=== PATIENT | male | born 1970 | race Caucasian/White ===

== ENCOUNTER 2017-02-09 08:31 | Inpatient (IN) | payer SELFPAY ==
[~2017-02-09] VITALS: Ht 172.7 cm; Wt 56.0 kg
[2017-02-09] VITALS (10 sets, daily range): BP systolic 114–135; BP diastolic 68–84; PULSE 73–121; RESP 15–16; TEMP 97.7; O2SAT 98–100
[~2017-02-09 08:31] MED LIST: NOVO7030P2 SQ; NOVOLOGP2 SQ; NOVOLOGSS SQ; XANA1TAB6 PO
[2017-02-09] MEDS ORDERED: NOVOLOGP2 SQ (08:44)
[2017-02-09] MEDS ORDERED: NOVO7030P2 SQ (08:44)
[2017-02-09] MEDS ORDERED: XANA1TAB2 PO (08:44)
[2017-02-09] MEDS ORDERED: SODIUM CHLORIDE 0.9% FLUSH 10 ML FLUSH IVF PRN (09:00)
--- NOTE | 2017-02-09 09:03 | PD ---
HPI Chief Complaint: Diabetic Time Seen by Provider: 08:58 Travel History International Travel<30 days: No Contact w/Intl Traveler<30days: No Traveled to known affect area: No History of Present Illness HPI This is a 47-year-old male who presents to the emergency department with a history of diabetes reporting that he thinks he is in DKA. He hasn't taken his insulin for 2 days because he was busy helping his friend move. He reports that he has diffuse abdominal pain, moderate severity, constant, associated with multiple episodes of vomiting with no fevers or chills. He also says he has a history of gastroparesis and this is causing him severe pain. PFSH Past Medical History Hx Anticoagulant Therapy: No Arthritis: No Asthma: No Autoimmune Disease: No Blood Disorders: Yes Anxiety: Yes Depression: Yes Heart Rhythm Problems: No Cancer: No Cardiovascular Problems: No High Cholesterol: No Chemotherapy: No Chest Pain: No Congestive Heart Failure: No COPD: No Cerebrovascular Accident: No Diabetes: Yes Patient Takes Glucophage: No Diminished Hearing: No Endocrine: Yes Gastrointestinal Disorders: Yes (GASTROPARESIS) GERD: No Genitourinary: No Headaches: No Hiatal Hernia: No Hypertension: No Immune Disorder: No Implanted Vascular Access Dvce: No Kidney Stones: Yes Musculoskeletal: No Neurologic: No Psychiatric: Yes Reproductive: No Respiratory: No Immunizations Current: Yes Migraines: No Radiation Therapy: No Renal Failure: No Seizures: No Sickle Cell Disease: No Sleep Apnea: No Thyroid Disease: No Ulcer: No ?: Not Past Surgical History Abdominal Surgery: No AICD: No Arteriovenous Shunt: No Cardiac Surgery: No Ear Surgery: No Endocrine Surgery: No Eye Surgery: No Genitourinary Surgery: No Gynecologic Surgery: No Hysterectomy: No Insulin Pump: No Joint Replacement: No Neurologic Surgery: No Oral Surgery: No Pacemaker: No Thoracic Surgery: No Other Surgery: No Social History Alcohol Use: Yes (SOCIALLY) Tobacco Use: Yes (1/2 PPD) Substance Use: No Allergies-Medications (Allergen,Severity, Reaction): Coded Allergies: Tramadol (Verified Allergy, Severe, INCREASES BLOOD SUGAR, 02/09/17) Aspirin (Verified Allergy, Unknown, Urinary Freq (Inc/Dec), 02/09/17) DIABETIC Reported Meds & Prescriptions Reported Meds & Active Scripts Active Reported Novolin 70-30 Inj (Insulin Human Isoph/Insulin Regular) 1,000 Unit/10 Ml Vial 15 Units SQ BID Novolog Inj (Insulin Aspart) 1,000 Unit/10 Ml Vial 0 SQ DIRECTED Sliding Scale as directed. Xanax (Alprazolam) 1 Mg Tab 1 Mg PO Q6H PRN Review of Systems Except as stated in HPI: all other systems reviewed are Neg Physical Exam Narrative GENERAL: Thin, chronically ill-appearing SKIN: Warm and dry. HEAD: Atraumatic. Normocephalic. EYES: Pupils equal and round. No injection or drainage. ENT: Dry mucous membranes. NECK: Trachea midline. CARDIOVASCULAR: Regular rate and rhythm. No murmur appreciated. RESPIRATORY: Tachypneic. Breath sounds equal bilaterally. GASTROINTESTINAL: Abdomen soft, diffusely tender to palpation with no rebound or guarding MUSCULOSKELETAL: No obvious deformities. NEUROLOGICAL: Awake and alert. No obvious cranial nerve deficits. Moving all extremities. PSYCHIATRIC: Appropriate mood and affect; insight and judgment normal. Data Data Last Documented VS Vital Signs Date Time Temp Pulse Resp B/P Pulse Ox O2 Delivery O2 Flow Rate FiO2 02/09/17 08:46 24 02/09/17 08:36 97.7 121 120/84 98 Orders Electrocardiogram (02/09/17 08:58) Complete Blood Count With Diff (02/09/17 08:58) Comprehensive Metabolic Panel (02/09/17 08:58) Beta Hydroxybutyrate (Acetone) (02/09/17 08:58) Urinalysis - C+S If Indicated (02/09/17 08:58) Blood Gas Venous (Vbg) (02/09/17 08:58) Ecg Monitoring (02/09/17 08:58) Iv Access Insert/Monitor (02/09/17 08:58) Oximetry (02/09/17 08:58) NPO (02/09/17 08:58) Sodium Chloride 0.9% Flush (Ns Flush) (02/09/17 09:00) Sodium Chlor 0.9% 1000 Ml Inj (Ns 1000 M (02/09/17 09:15) Sodium Chlor 0.9% 1000 Ml Inj (Ns 1000 M (02/09/17 09:15) Creatine Kinase (Cpk) (02/09/17 09:00) Stock Preparer / Telemetry [id number] (02/09/17 10:11) ^ Insert Iv (02/09/17 10:11) Diet Npo (02/09/17 Lunch) Sodium Chlor 0.9% 1000 Ml Inj (Ns 1000 M (02/09/17 10:11) Dext 5%-Nacl 0.9% 1000 Ml Inj (D5w-Ns 10 (02/09/17 10:11) Insulin Human Regular Inj (Novolin R Inj (02/09/17 10:15) Insulin Regular (Iv Infusion) (Novolin R (02/09/17 10:15) Potassium Chlor 40 Meq Premix (Kcl 40 Me (02/09/17 10:15) Potassium Chlor 40 Meq Premix (Kcl 40 Me (02/09/17 10:15) Potassium Chlor 20 Meq Premix (Kcl 20 Me (02/09/17 10:15) Potassium Chlor 20 Meq Premix (Kcl 20 Me (02/09/17 10:15) Potassium Chlor 20 Meq Premix (Kcl 20 Me (02/09/17 10:15) Potassium Chlor 20 Meq Premix (Kcl 20 Me (02/09/17 10:15) Potassium Chlor 20 Meq Premix (Kcl 20 Me (02/09/17 10:15) Potassium Chlor 20 Meq Premix (Kcl 20 Me (02/09/17 10:15) Sodium Bicarbonate 8.4% Inj (Sodium Bica (02/09/17 10:15) Sodium Bicarbonate 8.4% Inj (Sodium Bica (02/09/17 10:15) Sodium Phosphate Inj (Sodium Phosphate I (02/09/17 10:15) Hemoglobin (Hgb) A1c (02/09/17 10:11) Basic Metabolic Panel (Bmp) (02/09/17 15:11) Basic Metabolic Panel (Bmp) (02/09/17 21:11) Basic Metabolic Panel (Bmp) (02/10/17 03:11) Basic Metabolic Panel (Bmp) (02/10/17 09:11) Magnesium (Mg) (02/09/17 15:11) Magnesium (Mg) (02/09/17 21:11) Magnesium (Mg) (02/10/17 03:11) Magnesium (Mg) (02/10/17 09:11) Phosphorus (Po4) (02/09/17 15:11) Phosphorus (Po4) (02/09/17 21:11) Phosphorus (Po4) (02/10/17 03:11) Phosphorus (Po4) (02/10/17 09:11) Beta Hydroxybutyrate (Acetone) (02/09/17 21:11) Beta Hydroxybutyrate (Acetone) (02/10/17 09:11) Ondansetron Inj (Zofran Inj) (02/09/17 10:15) Morphine Inj (Morphine Inj) (02/09/17 10:15) Us Abdomen Liver (02/09/17 ) Tylenol (Acetaminophen) (02/09/17 10:22) Admit Order (Ed Use Only) (02/09/17 ) Labs Laboratory Tests Test 02/09/17 02/09/17 09:00 09:10 White Blood Count 10.2 TH/MM3 Red Blood Count 5.11 MIL/MM3 Hemoglobin 16.4 GM/DL Hematocrit 49.3 % Mean Corpuscular Volume 96.5 FL Mean Corpuscular Hemoglobin 32.0 PG Mean Corpuscular Hemoglobin 33.1 % Concent Red Cell Distribution Width 13.2 % Platelet Count 348 TH/MM3 Mean Platelet Volume 8.7 FL Neutrophils (%) (Auto) 81.3 % Lymphocytes (%) (Auto) 12.4 % Monocytes (%) (Auto) 5.6 % Eosinophils (%) (Auto) 0.1 % Basophils (%) (Auto) 0.6 % Neutrophils # (Auto) 8.2 TH/MM3 Lymphocytes # (Auto) 1.3 TH/MM3 Monocytes # (Auto) 0.6 TH/MM3 Eosinophils # (Auto) 0.0 TH/MM3 Basophils # (Auto) 0.1 TH/MM3 CBC Comment DIFF FINAL Differential Comment Urine Collection Type CLEAN CATCH Urine Color YELLOW Urine Turbidity CLEAR Urine pH 6.0 Urine Specific [place] 1.030 Urine Protein 100 mg/dL Urine Glucose (UA) 500 mg/dL Urine Ketones 80 OR GREATER mg/dL Urine Occult Blood LARGE Urine Nitrite NEG Urine Bilirubin NEG Urine Leukocyte Esterase NEG Urine RBC 20-24 /hpf Urine WBC 6-8 /hpf Microscopic Urinalysis Comment CULT NOT INDICATED Sodium Level 139 MEQ/L Potassium Level 4.5 MEQ/L Chloride Level 101 MEQ/L Carbon Dioxide Level 10.7 MEQ/L Anion Gap 27 MEQ/L Blood Urea Nitrogen 20 MG/DL Creatinine 1.40 MG/DL Estimat Glomerular Filtration 54 ML/MIN Rate Random Glucose 345 MG/DL Calcium Level 9.2 MG/DL Total Bilirubin 0.9 MG/DL Aspartate Amino Transf 936 U/L (AST/SGOT) Alanine Aminotransferase 1188 U/L (ALT/SGPT) Alkaline Phosphatase 417 U/L Total Creatine Kinase 229 U/L Total Protein 8.2 GM/DL Albumin 3.9 GM/DL B-Hydroxybutyrate 10.40 MMOL/L Blood Gas Puncture Site IV Blood Gas Patient Temperature 98.6 Venous Blood pH 7.26 Venous Blood Partial Pressure 28 mmHg CO2 Venous Blood Partial Pressure 28 mmHg O2 Venous Blood HCO3 12 mmol/L Venous Blood Oxygen Saturation 45 % Venous Blood Oxygen Content 10.7 Vol % Venous Blood Base Excess -13.8 mmol/L Oxygen Delivery Device ROOM AIR Blood Gas Inspired Oxygen 21 % MDM Medical Decision Making Medical Screen Exam Complete: Yes Emergency Medical Condition: Yes Interpretation(s) Afebrile, tachycardic, normotensive No leukocytosis Anion gap metabolic acidosis, renal insufficiency Hyperglycemia Transaminitis with elevated alkaline phosphatase which is new from prior labs Beta hydroxybutyrate is 10 Urinalysis: Large amount of blood Liver ultrasound: Hydronephrosis of the left kidney CT abdomen and pelvis: 6 mm obstructing stone in the left ureter Differential Diagnosis Diabetic ketoacidosis, cholecystitis, cholelithiasis, pancreatitis, nephrolithiasis, pyelonephritis Narrative Course This is a 47-year-old male who presents to the emergency department with a history of diabetes who failed to take his insulin for 2 days because he was busy helping his friend move furniture. He's developed abdominal pain and vomiting. Labs were obtained which confirmed diabetic ketoacidosis. He also has a new elevation in his transaminases of uncertain etiology. I performed a liver ultrasound which demonstrated hydronephrosis of the left kidney but had a normal right upper quadrant. CT abdomen and pelvis demonstrates a 6 mm obstructing stone in the left ureter. Patient was given an insulin bolus and started on insulin drip. He will be admitted to the intensive care unit for further management. He'll be transferred to the main hospital given his obstructing stone. Critical Care Narrative Aggregate critical care time was 45 minutes. Time to perform other separately billable procedures was not included in the critical care time. My time did not include minutes spent treating any other patients simultaneously or on activities that did not directly contribute to the patient's treatment. The services I provided to this patient were to treat and/or prevent clinically significant deterioration that could result in: disability, I provided critical care services requiring my management, as noted below: Chart data review, documentation time, medication orders and management, vital sign assessments/reviewing monitor data, ordering and reviewing lab tests, ordering and interpreting/reviewing x-rays and diagnostic studies, care of the patient and discussion of the patient with the admitting physicians. Physician Communication Physician Communication Discussed with Dr. Barba Diagnosis Primary Impression: DKA (diabetic ketoacidoses) Qualified Code: E10.10 - Diabetic ketoacidosis without coma associated with type 1 diabetes mellitus Additional Impression: Nephrolithiasis Admitting Information Admitting Physician Requests: Admit Magali Chen MD Feb 09, 2017 09:03
[2017-02-09 09:08] LABS: AUTOMATED NEUTROPHIL # 8.2 TH/MM3 (1.8-7.7); BASOPHIL # 0.1 TH/MM3 (0-0.2); BASOPHIL % 0.6 % (0.0-2.0); EOSINOPHIL % 0.1 % (0.0-4.0); HEMATOCRIT 49.3 % (39.0-51.0); HEMO FLAGS DIFF FINAL; LYMPH % 12.4 % (9.0-44.0); LYMPHOCYTE # 1.3 TH/MM3 (1.0-4.8); MEAN CELL VOLUME 96.5 FL (80.0-100.0); MEAN CORPUSCULAR HGB CONC 33.1 % (32.0-36.0); MONO % 5.6 % (0.0-8.0); NEUT % 81.3 % (16.0-70.0); PLATELET COUNT 348 TH/MM3 (150-450); RED BLOOD COUNT 5.11 MIL/MM3 (4.50-5.90); RED CELL DISTRIBUTION WIDTH 13.2 % (11.6-17.2); WHITE BLOOD COUNT 10.2 TH/MM3 (4.0-11.0)
[2017-02-09 09:09] LABS: BLOOD, URINE LARGE (NEG); GLUCOSE,URINE 500 mg/dL (NEG); NITRITE,URINE NEG (NEG)
[2017-02-09 09:14] LABS: KETONE, URINE 80 OR GREATER mg/dL (NEG)
[2017-02-09 09:15] LABS: METHOD OF COLLECTION CLEAN CATCH; URINE COLOR YELLOW (YELLW/STRAW)
[2017-02-09] MEDS ORDERED: SODIUM CHLOR 0.9% 1000 ML INJ 1,000 ML IV ONE ×2 (09:15)
[2017-02-09 09:16] LABS: BLOOD GAS VENOUS BASE EXCESS -13.8 mmol/L (-2-2); BLOOD GAS VENOUS HCO3 12 mmol/L (22-26); BLOOD GAS VENOUS O2 CONTENT 10.7 Vol % (9.0-17.0); BLOOD GAS VENOUS O2 HGB SAT 45 % (70-76); BLOOD GAS VENOUS PCO2 28 mmHg (44-48); BLOOD GAS VENOUS PO2 28 mmHg (35-40); BLOOD GAS VENOUS pH 7.26 (7.360-7.400); CRITICAL VALUE YES; FIO2 21 %; OXYGEN DEVICE ROOM AIR; TEMP CORR TO 98.6
[2017-02-09 09:16] LABS: CHLORIDE 101 MEQ/L (98-107); POTASSIUM 4.5 MEQ/L (3.5-5.1); SODIUM (NA) 139 MEQ/L (136-145)
[2017-02-09 09:17] LABS: DRAW SITE IV; STAT YES
[2017-02-09 09:17] LABS: COMMENT (UR) CULT NOT INDICATED; CULTURE IF INDICATED CULT NOT INDICATED
[2017-02-09 09:45] LABS: ANION GAP 27 MEQ/L (5-15); BICARBONATE 10.7 MEQ/L (21.0-32.0); BLOOD UREA NITROGEN 20 MG/DL (7-18)
[2017-02-09 09:48] LABS: AST (GOT) 936 U/L (15-37); GLOMERULAR FILTRATION RATE 54 ML/MIN (>89)
[2017-02-09 09:49] LABS: TOTAL BILIRUBIN ADULT 0.9 MG/DL (0.2-1.0)
[2017-02-09 09:51] LABS: ALKALINE PHOSPHATASE 417 U/L (45-117)
[2017-02-09 09:55] LABS: ALT (GPT) 1188 U/L (12-78)
[2017-02-09 09:56] LABS: CREATINE KINASE 229 U/L (39-308)
[2017-02-09] MEDS ORDERED: SODIUM PHOSPHATE INJ 15 MMOL in SODIUM CHLORIDE 0.9% INJ 100 ML IV PRN (10:15)
[2017-02-09] MEDS ORDERED: POTASSIUM CHLOR 40 MEQ PREMIX 100 ML IV PRN ×2 (10:15)
[2017-02-09] MEDS ORDERED: POTASSIUM CHLOR 20 MEQ PREMIX 100 ML IV PRN ×5 (10:15)
[2017-02-09] MEDS ORDERED: ONDANSETRON HCL 4 MG/2 ML VIAL IV PUSH ONE (10:15)
[2017-02-09] MEDS ORDERED: INSULIN HUMAN REGULAR 1,000 UNITS/10 ML VIAL IV PUSH ONE (10:15)
[2017-02-09] MEDS ORDERED: SODIUM BICARBONATE 8.4% SOLN 50 MEQ/50 ML VIAL IV PRN ×2 (10:15)
[2017-02-09] MEDS ORDERED: MORPHINE SULFATE 4 MG/ML INJ IV PUSH ONE (10:15)
[2017-02-09] MEDS ORDERED: INSULIN REGULAR (IV INFUSION) 100 UNITS in SODIUM CHLORIDE 0.9% INJ 99 ML IV SCH (10:15)
[2017-02-09] MEDS ORDERED: SODIUM CHLORIDE 0.9% FLUSH 10 ML FLUSH IV FLUSH PRN (10:30)
[2017-02-09] MEDS ORDERED: NALOXONE HCL 0.4 MG/ML AMP IV PRN (10:30)
[2017-02-09] MEDS: SODIUM CHLOR 0.9% 1000 ML INJ 1,000 ML IV SCH ×3 (11:16→16:59)
[2017-02-09] MEDS: POTASSIUM CHLOR 20 MEQ PREMIX 100 ML IV PRN (11:30)
[2017-02-09 11:39] LABS: APTT (PATIENT) 25.1 SEC (24.3-30.1); PROTHROMBIN TIME - PATIENT 10.8 SEC (9.8-11.6)
[2017-02-09 11:43] LABS: TOTAL BILIRUBIN ADULT 0.9 MG/DL (0.2-1.0)
[2017-02-09 11:58] LABS: INDIRECT BILIRUBIN 0.7 MG/DL (0.0-0.8)
--- NOTE | 2017-02-09 12:02 | RADHPO ---
EXAM DATE/TIME: 02/09/2017 11:24 [facility] COMPARISON: No previous studies available for comparison. INDICATIONS : Abnormal labs. MEDICAL HISTORY : Renal calculi. Diabetes. SURGICAL HISTORY : None. ENCOUNTER: Initial ACUITY: 1 day PAIN SCORE: 6/10 LOCATION: Bilateral upper quadrant MEASUREMENTS: LIVER: 16.4 cm length COMMON DUCT: 3 mm RIGHT KIDNEY: 11.0 x 4.7 x 5.0 cm SPLEEN: 9.5 cm length FINDINGS: LIVER: Free of focal defects. COMMON DUCT: Unremarkable. GALLBLADDER: Contains no stones, demonstrates no wall thickening or pericholecystic fluid. PANCREAS: The visualized portions are within normal limits. RIGHT KIDNEY: Measures 11 x 4 x 5 cm. LEFT KIDNEY: 1 cm stone is seen in the left kidney with mild hydronephrosis. Correlation would be of benefit to e xclude an obstructing renal stone on the left. SPLEEN: No focal lesion. I have no prior studies for a comparison. CONCLUSION: 1. There are no gallstones identified. 2. Stone identified in the left kidney with dilatation of the proximal collecting system. Roscoe Ramirez MD FACR on February 09, 2017 at 11:56 Board Certified Radiologist. This report was verified electronically.
--- NOTE | 2017-02-09 12:55 | RADHPO ---
EXAM DATE/TIME: 02/09/2017 12:21 [facility] COMPARISON: No previous studies available for comparison. INDICATIONS : Left flank pain ORAL CONTRAST: No oral contrast ingested. RADIATION DOSE: 4.80 CTDIvol (mGy) MEDICAL HISTORY : Diabetes mellitus type 2. SURGICAL HISTORY : None. ENCOUNTER: Initial ACUITY: 1 day PAIN SCALE: 3/10 LOCATION: Abdomen TECHNIQUE: Volumetric scanning of the abdomen and pelvis was performed. Using automated exposure control and ad justment of the mA and/or kV according to patient size, radiation dose was kept as low as reasonably achievable to obtain optimal diagnostic quality images. FINDINGS: The lung bases are clear. The liver is free of focal defects. Spleen and pancreas are unremarkable. There are multiple small stones in the right kidney, largest measuring 3 mm. There is a 5 - 6 mm stone proximal third of the left ureter. A second 3 mm stone remains in the kidn ey. Pelvic contents are unremarkable. There is gaseous distention of transverse colon and proximal small bowel in a nonspecific fashion. CONCLUSION: Obstructing stone proximal third of the left ureter with moderate perinephric stranding. Roscoe Ramirez MD FACR on February 09, 2017 at 12:49 Board Certified Radiologist. This report was verified electronically.
[2017-02-09] MEDS: cefTRIAXone INJ 2,000 MG in SODIUM CHLORIDE 0.9% INJ 100 ML IV SCH (13:38)
[2017-02-09] MEDS: DEXT 5%-NACL 0.9% 1000 ML INJ 1,000 ML IV SCH ×2 (14:22→17:04)
--- NOTE | 2017-02-09 15:10 | HHI.HP ---
[facility] No Primary Care Physician Admission Diagnosis diabetic ketoacidosis Diagnoses: Travel History International Travel<30 Days: No Contact w/Intl Traveler <30 Da: No Traveled to Known Affected Are: No History of Present Illness This is a 47 year-old female with past medical history of type 1 diabetes, frequent admissions for DKA, due to noncompliance with insulin who presented to the ER today complaining of high blood sugars, nausea and vomiting. 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 He has generalized abdominal pain from vomiting. He states he typically gets vomiting from his gastroparesis when he is noncompliant with his insulin. He denies any flank pain. Denies any dysuria or urgency. Denies hematuria. Denies fever or chills. No palliative or provocative factors, symptoms severe. Emergency department he was found to be in DKA and was started on IV insulin. The patient also had notable elevation of liver enzymes. Abdominal CT scan also showed an obstructing left ureteral stone 5-6 mm in the proximal third of the left ureter with associated hydronephrosis and perinephric stranding. Patient denies taking any Tylenol, supplements, states he is not sexually active currently, denies history of IV drug abuse. He does have a history of cocaine use but denies any recently. Review of Systems Constitutional: DENIES: Fever, Chills Endocrine: COMPLAINS OF: Polydipsia, Polyuria Eyes: DENIES: Photosensitivity, Double Vision Ears, nose, mouth, throat: DENIES: Throat pain, Hoarseness Respiratory: DENIES: Cough, Shortness of breath Cardiovascular: DENIES: Chest pain, Palpitations Gastrointestinal: COMPLAINS OF: Abdominal pain, Nausea, Vomiting, DENIES: Black stools, Diarrhea Genitourinary: DENIES: Hematuria, Dysuria Musculoskeletal: DENIES: Back pain, Neck pain Integumentary: DENIES: Pruritus, Rash Neurologic: DENIES: Headache, Localized weakness Psychiatric: COMPLAINS OF: Anxiety, DENIES: Confusion Past Family Social History Past Medical History Type 1 diabetes diagnosed in 1997 Frequent noncompliance with insulin regimen with multiple hospitalizations for DKA History of cocaine use Depression and anxiety Previous esophagitis Gastroparesis Nephrolithiasis Diabetic peripheral neuropathy Reported Medications Allergies Coded Allergies Type Severity Reaction Last Updated Verified Tramadol Allergy Severe INCREASES BLOOD SUGAR 02/09/17 Yes Aspirin Allergy Unknown Urinary Freq (Inc/Dec) 02/09/17 Yes Active Scripts Medications Dose Route/Sig Days Date Category Dose Instructions Novolin 70-30 Inj (Insulin Human Isoph/Insulin Regular) 1,000 Unit/10 Ml Vial 15 Units SQ BID 02/09/17 Reported Novolog Inj (Insulin Aspart) 1,000 Unit/10 Ml Vial 0 SQ DIRECTED 02/09/17 Reported Sliding Scale as directed. Xanax (Alprazolam) 1 Mg Tab 1 Mg PO Q6H PRN 02/09/17 Reported Allergies: Coded Allergies: Tramadol (Verified Allergy, Severe, INCREASES BLOOD SUGAR, 02/09/17) Aspirin (Verified Allergy, Unknown, Urinary Freq (Inc/Dec), 02/09/17) DIABETIC Family History Kidney stones Social History He smokes half pack tobacco per day denies any history of IV drug abuse, states he is not currently sexually active, denies recent cocaine use Physical Exam Vital Signs Vital Signs Date Time Temp Pulse Resp B/P Pulse Ox O2 Delivery O2 Flow Rate FiO2 02/09/17 14:23 90 15 129/81 02/09/17 13:31 80 15 127/70 100 02/09/17 12:20 84 15 131/75 100 Room Air 02/09/17 11:00 80 15 135/73 98 02/09/17 10:50 15 98 Room Air 02/09/17 08:46 24 02/09/17 08:36 97.7 121 16 120/84 98 Physical Exam GENERAL: Well-nourished, well-developed lean middle-aged male patient. SKIN: Warm and dry. Skin is weathered. HEAD: Normocephalic. EYES: No scleral icterus. No injection or drainage. Oropharynx: Dry mucous membranes. Teeth in poor repair. NECK: Supple, trachea midline. No JVD or lymphadenopathy. CARDIOVASCULAR: Regular rate and rhythm without murmurs, gallops, or rubs. RESPIRATORY: Breath sounds equal bilaterally. No accessory muscle use. GASTROINTESTINAL: Bowel sounds positive. Abdomen soft, non-tender, nondistended. EXTREMITIES: No cyanosis, or edema. NEUROLOGICAL: Awake, alert, and oriented x 3. Non-focal. Laboratory Laboratory Tests Test 02/09/17 02/09/17 02/09/17 09:00 09:10 11:15 White Blood Count 10.2 Red Blood Count 5.11 Hemoglobin 16.4 Hematocrit 49.3 Mean Corpuscular Volume 96.5 Mean Corpuscular Hemoglobin 32.0 Mean Corpuscular Hemoglobin 33.1 Concent Red Cell Distribution Width 13.2 Platelet Count 348 Mean Platelet Volume 8.7 Neutrophils (%) (Auto) 81.3 Lymphocytes (%) (Auto) 12.4 Monocytes (%) (Auto) 5.6 Eosinophils (%) (Auto) 0.1 Basophils (%) (Auto) 0.6 Neutrophils # (Auto) 8.2 Lymphocytes # (Auto) 1.3 Monocytes # (Auto) 0.6 Eosinophils # (Auto) 0.0 Basophils # (Auto) 0.1 CBC Comment DIFF FINAL Differential Comment Urine Collection Type CLEAN CATCH Urine Color YELLOW Urine Turbidity CLEAR Urine pH 6.0 Urine Specific [place] 1.030 Urine Protein 100 Urine Glucose (UA) 500 Urine Ketones 80 OR GREATER Urine Occult Blood LARGE Urine Nitrite NEG Urine Bilirubin NEG Urine Leukocyte Esterase NEG Urine RBC 20-24 Urine WBC 6-8 Microscopic Urinalysis Comment CULT NOT INDICATED Sodium Level 139 Potassium Level 4.5 Chloride Level 101 Carbon Dioxide Level 10.7 Anion Gap 27 Blood Urea Nitrogen 20 Creatinine 1.40 Estimat Glomerular Filtration 54 Rate Random Glucose 345 Calcium Level 9.2 Total Bilirubin 0.9 0.9 Aspartate Amino Transf 936 (AST/SGOT) Alanine Aminotransferase 1188 (ALT/SGPT) Alkaline Phosphatase 417 Total Creatine Kinase 229 Total Protein 8.2 Albumin 3.9 B-Hydroxybutyrate 10.40 Blood Gas Puncture Site IV Blood Gas Patient Temperature 98.6 Venous Blood pH 7.26 Venous Blood Partial Pressure 28 CO2 Venous Blood Partial Pressure 28 O2 Venous Blood HCO3 12 Venous Blood Oxygen Saturation 45 Venous Blood Oxygen Content 10.7 Venous Blood Base Excess -13.8 Oxygen Delivery Device ROOM AIR Blood Gas Inspired Oxygen 21 Prothrombin Time 10.8 Prothromb Time International 1.0 Ratio Activated Partial 25.1 Thromboplast Time Lactic Acid Level 1.6 Direct Bilirubin 0.2 Indirect Bilirubin 0.7 Acetaminophen Level LESS THAN 2.0 Result Diagram: 02/09/17 0900 02/09/17 0900 Assessment and Plan Problem List: (1) Medical non-compliance ICD Code: Z91.19 Status: Acute (2) SHARIFA (acute kidney injury) ICD Code: N17.9 Status: Acute (3) Acute hepatitis ICD Code: B17.9 Status: Acute (4) DKA (diabetic ketoacidoses) ICD Code: E13.10 Status: Resolved (5) Type 1 diabetes mellitus on insulin therapy ICD Code: E10.9 Status: Chronic (6) Gastroparesis ICD Code: K31.84 Status: Chronic (7) 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 Will admit to ICU on insulin drip and DKA protocol. Check hemoglobin A1c. Electrolyte replacement as indicated. -Transaminitis with ALC being greater than AST - liver ultrasound unremarkable, no gallstones, bilirubin elevated, coags are normal, Tylenol level normal. Patient denies using Tylenol or supplements. Denies any recent cocaine use, unprotected sexual encounters, denies history of IV drug abuse. We'll check hepatitis profile. Consult gastroenterology for opinion. -Left ureteral stone 5-6 mm which is obstructing the proximal third of the left ureter with moderate perinephric stranding. Interestingly the patient does not have any left flank pain. We'll consult urology, continue with IV fluids, pain control as needed. Rocephin 2 g IV daily prophylactically. -Acute kidney injury likely prerenal, nonoliguric. Continue with IV fluid resuscitation. Lactic acid is not elevated. Check a BMP in the morning. -Gastroparesis with acute exacerbation with nausea and vomiting. Will start him on Reglan IV. Zofran when necessary. Nothing by mouth. -Type 1 diabetes diagnosed in 1997 - takes Novolin 70/30 as an outpatient but is noncompliant. Consult chemical educator when off insulin drip. -History of cocaine use - denies recent use. Check urine drug screen. -Depression and anxiety - not currently being treated. Consider psychiatry consultation. -Previous esophagitis - start Protonix. -DVT prophylaxis with SCDs. 40 minutes of critical care time spent. Problem Qualifiers (1) DKA (diabetic ketoacidoses): Qualified Code: E10.10 - Diabetic ketoacidosis without coma associated with type 1 diabetes mellitus Heidi Barba MD Feb 09, 2017 15:10
[2017-02-09 15:31] LABS: BICARBONATE 16.3 MEQ/L (21.0-32.0); MAGNESIUM 2.3 MG/DL (1.5-2.5); POTASSIUM 4.9 MEQ/L (3.5-5.1)
[2017-02-09] MEDS: ONDANSETRON HCL 4 MG/2 ML VIAL IVP PRN (16:43)
[2017-02-09] MEDS: PANTOPRAZOLE SODIUM 40 MG VIAL IV PUSH SCH (17:03)
--- NOTE | 2017-02-09 18:43 | PD.CONS ---
HPI Service Urology Consult Requested By Reason for Consult Nephrolithiasis Primary Care Physician No Primary Care Physician Diagnosis: (1) Medical non-compliance ICD Code: Z91.19 (2) SHARIFA (acute kidney injury) ICD Code: N17.9 (3) Acute hepatitis ICD Code: B17.9 (4) DKA (diabetic ketoacidoses) ICD Code: E13.10 (5) Type 1 diabetes mellitus on insulin therapy ICD Code: E10.9 (6) Gastroparesis ICD Code: K31.84 (7) Cocaine abuse in remission ICD Code: F14.10 (8) Hydronephrosis of left kidney ICD Code: N13.30 (9) Left ureteral calculus ICD Code: N20.1 History of Present Illness 47yo male with history of DM currently admitted for DKA found to have a left midureteral stone. Patient was found to have elevated blood sugar levels and noncompliance with his insulin regimen. Upon admit, CT scan identified a left 5- 6mid ureteral stone with some hydronephrosis. At this time the patient denies any left flank pain. He reports he did experience a short episode of sharp severe left flank pain ne week ago, however this resolved and he has since had not pain. No fevers, no hematuria, no dysuria. Of note, the patient has gastroparesis from his uncontrolled DM. Review of Systems ROS Limitations: Clinical Condition Constitutional: DENIES: Fever Endocrine: DENIES: Polyuria Eyes: DENIES: Blurred vision Ears, nose, mouth, throat: DENIES: Hearing loss Respiratory: DENIES: Cough Cardiovascular: DENIES: Chest pain Gastrointestinal: COMPLAINS OF: Nausea, Vomiting, DENIES: Abdominal pain Genitourinary: DENIES: Urgency, Hematuria, Dysuria Musculoskeletal: DENIES: Back pain Integumentary: DENIES: Rash Hematologic/lymphatic: DENIES: Bruising Neurologic: DENIES: Headache Psychiatric: DENIES: Anxiety Except as stated in HPI: all other systems reviewed are Neg Past Family Social History Past Medical History Type 1 diabetes diagnosed in 1997 Frequent noncompliance with insulin regimen with multiple hospitalizations for DKA History of cocaine use Depression and anxiety Previous esophagitis Gastroparesis Nephrolithiasis Diabetic peripheral neuropathy Past Surgical History No past surgeries Reported Medications Reported Meds & Active Scripts Active Reported Novolin 70-30 Inj (Insulin Human Isoph/Insulin Regular) 1,000 Unit/10 Ml Vial 15 Units SQ BID Novolog Inj (Insulin Aspart) 1,000 Unit/10 Ml Vial 0 SQ DIRECTED Sliding Scale as directed. Xanax (Alprazolam) 1 Mg Tab 1 Mg PO Q6H PRN Allergies: Coded Allergies: Tramadol (Verified Allergy, Severe, INCREASES BLOOD SUGAR, 02/09/17) Aspirin (Verified Allergy, Unknown, Urinary Freq (Inc/Dec), 02/09/17) DIABETIC Active Ordered Medications Current Medications Medications (Trade) Dose Ordered Sig/Padma Route Start Time Stop Time Status Last Admin Sodium Chloride 1,000 ml @ 250 mls/hr Q4H IV 02/09/17 10:11 02/09/17 11:16 Dextrose/Sodium Chloride 1,000 ml @ 200 mls/hr Q5H IV 02/09/17 10:11 02/09/17 17:04 Insulin Human Regular 100 units/ Sodium Chloride 100 ml @ 0 mls/hr TITRATE IV 02/09/17 10:15 02/09/17 11:13 Potassium Chloride 100 ml @ 100 mls/hr Q1H PRN IV 02/09/17 10:15 Potassium Chloride 100 ml @ 50 mls/hr Q2H PRN IV 02/09/17 10:15 Potassium Chloride 100 ml @ 100 mls/hr Q1H PRN IV 02/09/17 10:15 02/09/17 11:30 Potassium Chloride 100 ml @ 100 mls/hr Q1H PRN IV 02/09/17 10:15 Potassium Chloride 100 ml @ 50 mls/hr Q2H PRN IV 02/09/17 10:15 02/09/17 17:11 Potassium Chloride 100 ml @ 50 mls/hr Q2H PRN IV 02/09/17 10:15 Potassium Chloride 100 ml @ 50 mls/hr Q2H PRN IV 02/09/17 10:15 (KCl 20 Meq Premix Inj) 100 ml @ 50 mls/hr Q2H PRN IV 02/09/17 10:15 (Sodium Bicarbonate 8.4% Inj) 100 meq UNSCH PRN IV 02/09/17 10:15 Sodium Bicarbonate 50 meq 50 meq UNSCH PRN IV 02/09/17 10:15 (Sodium Phosphate Inj/NS Inj) 105 ml @ 25 mls/hr UNSCH PRN IV 02/09/17 10:15 (NS Flush) 2 ml UNSCH PRN IV FLUSH 02/09/17 10:30 (NS Flush) 2 ml BID IV FLUSH 02/09/17 21:00 (Zofran Inj) 4 mg Q6H PRN IVP 02/09/17 10:30 02/09/17 16:43 (Roxicodone) 5 mg Q4H PRN PO 02/09/17 10:30 02/09/17 18:41 Naloxone HCl 0.4 mg 0.4 mg UNSCH PRN IV 02/09/17 10:30 (Rocephin Inj/NS Inj) 100 ml @ 200 mls/hr Q24H IV 02/09/17 14:00 02/09/17 13:38 (Protonix Inj) 40 mg Q24H IV PUSH 02/09/17 16:00 02/09/17 17:03 Family History Kidney stones Social History He smokes half pack tobacco per day denies any history of IV drug abuse, states he is not currently sexually active, denies recent cocaine use Physical Exam Vital Signs Date Time Temp Pulse Resp B/P Pulse Ox O2 Delivery O2 Flow Rate FiO2 02/09/17 18:00 80 02/09/17 14:23 90 15 129/81 02/09/17 13:31 80 15 127/70 100 02/09/17 12:20 84 15 131/75 100 Room Air 02/09/17 11:00 80 15 135/73 98 02/09/17 10:50 15 98 Room Air 02/09/17 08:46 24 02/09/17 08:36 97.7 121 16 120/84 98 Physical Exam GENERAL: This is a well-nourished, well-developed patient, in no apparent distress. SKIN: No rashes, ecchymoses or lesions. Cool and dry. HEAD: Atraumatic. Normocephalic. EYES: Extraocular motions intact. No scleral icterus. No injection or drainage. ENT: Nose without bleeding, purulent drainage. Airway patent. NECK: Trachea midline. No JVD or lymphadenopathy. CARDIOVASCULAR: Normal pulses, extermities well perfused. RESPIRATORY: Nonlabored, equal chest rise GASTROINTESTINAL: Abdomen soft, non-tender, nondistended.Mild left flank tenderness noted GENITOURINARY: Circumcised phallus, normal urethral meatus, no lesions; Bilateral descended testis MUSCULOSKELETAL: Extremities without clubbing, cyanosis, or edema. NEUROLOGICAL: Awake and alert. Motor and sensory grossly within normal limits. Normal speech. Lab results reviewed: Yes Laboratory Tests Test 02/09/17 02/09/17 02/09/17 02/09/17 09:00 09:10 11:15 15:00 White Blood Count 10.2 Red Blood Count 5.11 Hemoglobin 16.4 Hematocrit 49.3 Mean Corpuscular Volume 96.5 Mean Corpuscular Hemoglobin 32.0 Mean Corpuscular Hemoglobin 33.1 Concent Red Cell Distribution Width 13.2 Platelet Count 348 Mean Platelet Volume 8.7 Neutrophils (%) (Auto) 81.3 Lymphocytes (%) (Auto) 12.4 Monocytes (%) (Auto) 5.6 Eosinophils (%) (Auto) 0.1 Basophils (%) (Auto) 0.6 Neutrophils # (Auto) 8.2 Lymphocytes # (Auto) 1.3 Monocytes # (Auto) 0.6 Eosinophils # (Auto) 0.0 Basophils # (Auto) 0.1 CBC Comment DIFF FINAL Differential Comment Urine Collection Type CLEAN CATCH Urine Color YELLOW Urine Turbidity CLEAR Urine pH 6.0 Urine Specific [place] 1.030 Urine Protein 100 Urine Glucose (UA) 500 Urine Ketones 80 OR GREATER Urine Occult Blood LARGE Urine Nitrite NEG Urine Bilirubin NEG Urine Leukocyte Esterase NEG Urine RBC 20-24 Urine WBC 6-8 Microscopic Urinalysis Comment CULT NOT INDICATED Sodium Level 139 145 Potassium Level 4.5 4.9 Chloride Level 101 112 Carbon Dioxide Level 10.7 16.3 Anion Gap 27 17 Blood Urea Nitrogen 20 15 Creatinine 1.40 1.00 Estimat Glomerular Filtration 54 80 Rate Random Glucose 345 128 Calcium Level 9.2 8.0 Total Bilirubin 0.9 0.9 Aspartate Amino Transf 936 (AST/SGOT) Alanine Aminotransferase 1188 (ALT/SGPT) Alkaline Phosphatase 417 Total Creatine Kinase 229 Total Protein 8.2 Albumin 3.9 B-Hydroxybutyrate 10.40 Blood Gas Puncture Site IV Blood Gas Patient Temperature 98.6 Venous Blood pH 7.26 Venous Blood Partial Pressure 28 CO2 Venous Blood Partial Pressure 28 O2 Venous Blood HCO3 12 Venous Blood Oxygen Saturation 45 Venous Blood Oxygen Content 10.7 Venous Blood Base Excess -13.8 Oxygen Delivery Device ROOM AIR Blood Gas Inspired Oxygen 21 Prothrombin Time 10.8 Prothromb Time International 1.0 Ratio Activated Partial 25.1 Thromboplast Time Lactic Acid Level 1.6 Direct Bilirubin 0.2 Indirect Bilirubin 0.7 Acetaminophen Level LESS THAN 2.0 Phosphorus Level 1.5 Magnesium Level 2.3 Result Diagram: 02/09/17 0900 02/09/17 1500 Personally reviewed images: Yes Imaging CT scan reviewed with meld left hydronephrosis with stone noted in the left midureter Assessment and Plan Problem List: (1) DKA (diabetic ketoacidoses) ICD Code: E13.10 Status: Resolved (2) Hydronephrosis of left kidney ICD Code: N13.30 Status: Acute (3) Left ureteral calculus ICD Code: N20.1 Status: Acute Assessment and Plan -Currently the patient is comfortable, no flank pain -Creatinine and WBC within normal limits -Continue treatment for his DKA; No immediate intervention for his left nephrolithiasis indicated at this time -If patient's clinical status does not improve or develops left flank pain, may consider left ureteral stent placement -Will follow -Please call with questions Problem Qualifiers (1) DKA (diabetic ketoacidoses): Qualified Code: E10.10 - Diabetic ketoacidosis without coma associated with type 1 diabetes mellitus Michael Encarnacion MD Feb 09, 2017 18:43
[2017-02-09 19:55] LABS: AMPHETAMINE, URINE NEG (NEG); BARBITURATES, URINE NEG (NEG); COCAINE, URINE POS (NEG)
--- NOTE | 2017-02-09 20:54 | EKG ---
Date Performed: 02/09/2017 Time Performed: 09:07:42 PTAGE: 47 years EKG: Sinus rhythm Left axis deviation Abnormal ECG PREVIOUS TRACING : 11/19/2015 20.02 DOCTOR: Nae Patterson Interpretating Date/Time 02/09/2017 20:52:17
[2017-02-09] MEDS: SODIUM CHLORIDE 0.9% FLUSH 10 ML FLUSH IV FLUSH SCH (21:00)
[2017-02-09 21:53] LABS: BETA-HYDROXYBUTYRATE 1.49 MMOL/L (0.00-0.39); BICARBONATE 20.8 MEQ/L (21.0-32.0); MAGNESIUM 1.9 MG/DL (1.5-2.5); POTASSIUM 3.9 MEQ/L (3.5-5.1)
[2017-02-10] VITALS (14 sets, daily range): BP systolic 113–133; BP diastolic 69–77; PULSE 65–90; RESP 12–31; TEMP 97.6–99; O2SAT 100
[2017-02-10] MEDS: ONDANSETRON HCL 4 MG/2 ML VIAL IVP PRN ×3 (00:04→17:41)
[2017-02-10 04:35] LABS: BICARBONATE 21.6 MEQ/L (21.0-32.0); MAGNESIUM 1.9 MG/DL (1.5-2.5); POTASSIUM 3.7 MEQ/L (3.5-5.1)
[2017-02-10 06:12] LABS: BASOPHIL % 0.6 % (0.0-2.0); EOSINOPHIL # 0.1 TH/MM3 (0-0.4); EOSINOPHIL % 1.3 % (0.0-4.0); HEMATOCRIT 42.7 % (39.0-51.0); HEMO FLAGS DIFF FINAL; LYMPH % 17.9 % (9.0-44.0); LYMPHOCYTE # 1.1 TH/MM3 (1.0-4.8); MEAN CELL VOLUME 96.6 FL (80.0-100.0); MEAN CORPUSCULAR HEMOGLOBIN 32.4 PG (27.0-34.0); MEAN CORPUSCULAR HGB CONC 33.5 % (32.0-36.0); MONO % 12.7 % (0.0-8.0); NEUT % 67.5 % (16.0-70.0); PLATELET COUNT 267 TH/MM3 (150-450); RED BLOOD COUNT 4.42 MIL/MM3 (4.50-5.90); RED CELL DISTRIBUTION WIDTH 13.6 % (11.6-17.2)
[2017-02-10 06:40] LABS: HDL CHOLESTEROL 61.5 MG/DL (40.0-60.0); LDL CHOLESTEROL 60 MG/DL (0-99)
[2017-02-10] MEDS: SODIUM CHLOR 0.9% 1000 ML INJ 1,000 ML IV SCH ×5 (07:27→18:11)
[2017-02-10 07:37] LABS: BLOOD UREA NITROGEN 9 MG/DL (7-18)
[2017-02-10 07:38] LABS: ALKALINE PHOSPHATASE 268 U/L (45-117); ALT (GPT) 833 U/L (12-78); AST (GOT) 621 U/L (15-37); GLOMERULAR FILTRATION RATE 85 ML/MIN (>89); POTASSIUM 3.3 MEQ/L (3.5-5.1); SODIUM (NA) 146 MEQ/L (136-145); TOTAL BILIRUBIN ADULT 0.7 MG/DL (0.2-1.0)
[2017-02-10 07:39] LABS: ANION GAP 11 MEQ/L (5-15); BICARBONATE 21.2 MEQ/L (21.0-32.0); CHLORIDE 114 MEQ/L (98-107)
[2017-02-10] MEDS: POTASSIUM CHLOR 20 MEQ PREMIX 100 ML IV PRN ×2 (07:39→10:14)
[2017-02-10] MEDS: DEXT 5%-NACL 0.9% 1000 ML INJ 1,000 ML IV SCH (07:40)
[2017-02-10] MEDS ORDERED: DEXTROSE 50% IN WATER 50 ML VIAL(D50) IV PUSH PRN (09:30)
[2017-02-10] MEDS ORDERED: 1/2 NS + KCL 20 MEQ INJ 1,000 ML IV SCH (09:30)
[2017-02-10] MEDS ORDERED: GLUCAGON 1 MG/ML VIAL OTHER PRN (09:30)
[2017-02-10] MEDS: SODIUM CHLORIDE 0.9% FLUSH 10 ML FLUSH IV FLUSH SCH ×2 (09:42→20:34)
[2017-02-10 09:45] LABS: HEMOGLOBIN A1a 1.5 %; HEMOGLOBIN Ao 76.9 %; HEMOGLOBIN F 1.7 %; HEMOGLOBIN LA1C 2.6 %; HEMOGLOBIN P3 4.5 %
[2017-02-10] MEDS: INSULIN HUMAN NPH/R 70/30 1,000 UNITS/10 ML VIAL SQ SCH ×2 (09:47→20:32)
[2017-02-10 10:50] LABS: BETA-HYDROXYBUTYRATE 0.54 MMOL/L (0.00-0.39); BICARBONATE 21.2 MEQ/L (21.0-32.0); POTASSIUM 3.6 MEQ/L (3.5-5.1)
[2017-02-10] MEDS: INSULIN NovoLIN REGULAR SUPPLEMENTAL SCALE SQ SCH ×3 (11:00→20:33)
--- NOTE | 2017-02-10 12:18 | PD.CONS ---
HPI History of Present Illness This is a 47 year old male with a hx of Type I DM, Gastroparesis, and recurrent nausea and vomiting. He reports that he has had multiple hospitalizations this year for DKA and nausea and vomiting. He came to the ER on 02/09/17 because he thought he had DKA. He reports that he didn't take his insulin for 2 days and then started having intractable nausea/vomiting with associated abdominal pain. He reports that he does have a hx of gastroparesis, but does not take any medications for this at home. He reports that he started having nausea/ vomiting a few days ago and that this consists of bilious material. He has associated abdominal pain described as a dull ache in his mid abdomen without radiation. He denies fevers, chills, melena, or hematochezia. He had an EGD () and this revealed severe esophagitis. Pathology of esophagus revealed squamous mucosa with features consistent with mild reflux esophagitis. GI was consulted for elevated LFTs. The patient denies any known hx of liver or gallbladder issues. He denies the use of any acetaminophen or acetaminophen containing products. He denies any new medications. He denies ETOH use. He initially said that he used marijuana only, but after going over his toxicology report- positive for opiates, benzo's, cocaine, and marijuana, he admitted to using these drugs as well. He reports that his mother had liver disease secondary to EOTH abuse. (Freida Fitch) PFS Past Medical History Type 1 diabetes Noncompliance with insulin regimen with multiple hospitalizations for DKA Polysubstance abuse Depression and anxiety Esophagitis Gastroparesis Nephrolithiasis Diabetic peripheral neuropathy Past Surgical History EGD (Freida Fitch) Coded Allergies: Tramadol (Verified Allergy, Severe, INCREASES BLOOD SUGAR, 02/09/17) Aspirin (Verified Allergy, Unknown, Urinary Freq (Inc/Dec), 02/09/17) DIABETIC Medications Allergies Coded Allergies Type Severity Reaction Last Updated Verified Tramadol Allergy Severe INCREASES BLOOD SUGAR 02/09/17 Yes Aspirin Allergy Unknown Urinary Freq (Inc/Dec) 02/09/17 Yes Active Scripts Medications Dose Route/Sig Days Date Category Dose Instructions Novolin 70-30 Inj (Insulin Human Isoph/Insulin Regular) 1,000 Unit/10 Ml Vial 15 Units SQ BID 02/09/17 Reported Novolog Inj (Insulin Aspart) 1,000 Unit/10 Ml Vial 0 SQ DIRECTED 02/09/17 Reported Sliding Scale as directed. Xanax (Alprazolam) 1 Mg Tab 1 Mg PO Q6H PRN 02/09/17 Reported Family History States mother had liver disease related to ETOH abuse Social History He smokes half pack tobacco per day. No ETOH Initially stated that he used marijuana only, but after going over toxicology report, admitted to cocaine use. (Freida Fitch) Review of Systems Constitutional: COMPLAINS OF: Fatigue, DENIES: Fever, Weight loss, Chills Respiratory: DENIES: Cough Cardiovascular: DENIES: Chest pain Gastrointestinal: COMPLAINS OF: Abdominal pain, Nausea, Vomiting, Heartburn, DENIES: Black stools, Bloody stools, Constipation, Diarrhea, Swelling of Abdomen Musculoskeletal: DENIES: Joint pain Integumentary: DENIES: Abnormal pigmentation Hematologic/lymphatic: DENIES: Bruising Neurologic: DENIES: Headache Psychiatric: DENIES: Confusion (Freida Fitch) GI Exam Vitals I&O Vital Signs Date Time Temp Pulse Resp B/P Pulse Ox O2 Delivery O2 Flow Rate FiO2 02/10/17 10:00 67 02/10/17 08:00 65 02/10/17 08:00 98.2 65 12 133/77 100 02/10/17 06:00 68 02/10/17 04:00 76 02/10/17 04:00 97.6 68 12 113/69 100 02/10/17 02:00 80 02/10/17 00:00 80 02/10/17 00:00 97.9 80 31 125/75 100 02/09/17 22:00 73 02/09/17 20:00 79 02/09/17 20:00 97.7 79 16 114/68 100 02/09/17 19:45 100 21 02/09/17 18:00 80 02/09/17 14:23 90 15 129/81 02/09/17 13:31 80 15 127/70 100 02/09/17 12:20 84 15 131/75 100 Room Air I/O 02/09/17 02/09/17 02/09/17 02/10/17 02/10/17 02/10/17 07:00 15:00 23:00 07:00 15:00 23:00 Intake Total 4884 ml 1803 ml Output Total 1260 ml Balance 3624 ml 1803 ml Intake Oral 10 ml 5 ml IV Total 4874 ml 1798 ml Output Urine Total 1260 ml Laboratory Test 02/09/17 02/09/17 02/09/17 02/09/17 15:00 16:45 18:20 21:02 Sodium Level 145 MEQ/L 143 MEQ/L Potassium Level 4.9 MEQ/L 3.9 MEQ/L Chloride Level 112 MEQ/L 114 MEQ/L Carbon Dioxide Level 16.3 MEQ/L 20.8 MEQ/L Anion Gap 17 MEQ/L 8 MEQ/L Blood Urea Nitrogen 15 MG/DL 12 MG/DL Creatinine 1.00 MG/DL 1.00 MG/DL Estimat Glomerular Filtration 80 ML/MIN 80 ML/MIN Rate Random Glucose 128 MG/DL 106 MG/DL Calcium Level 8.0 MG/DL 7.8 MG/DL Phosphorus Level 1.5 MG/DL 1.0 MG/DL Magnesium Level 2.3 MG/DL 1.9 MG/DL Nasal Screen MRSA (PCR) NEGATIVE Urine Opiates Screen POS Urine Barbiturates Screen NEG Urine Amphetamines Screen NEG Urine Benzodiazepines Screen POS Urine Cocaine Screen POS Urine Cannabinoids Screen POS B-Hydroxybutyrate 1.49 MMOL/L Test 02/10/17 02/10/17 02/10/17 03:28 05:29 09:28 Sodium Level 145 MEQ/L 146 MEQ/L 145 MEQ/L Potassium Level 3.7 MEQ/L 3.3 MEQ/L 3.6 MEQ/L Chloride Level 116 MEQ/L 114 MEQ/L 114 MEQ/L Carbon Dioxide Level 21.6 MEQ/L 21.2 MEQ/L 21.2 MEQ/L Anion Gap 7 MEQ/L 11 MEQ/L 10 MEQ/L Blood Urea Nitrogen 9 MG/DL 9 MG/DL 7 MG/DL Creatinine 0.95 MG/DL 0.95 MG/DL 0.81 MG/DL Estimat Glomerular Filtration 85 ML/MIN 85 ML/MIN 102 ML/MIN Rate Random Glucose 220 MG/DL 188 MG/DL 160 MG/DL Calcium Level 7.8 MG/DL 7.7 MG/DL 7.9 MG/DL Phosphorus Level 1.0 MG/DL 0.9 MG/DL Magnesium Level 1.9 MG/DL 2.0 MG/DL White Blood Count 6.0 TH/MM3 Red Blood Count 4.42 MIL/MM3 Hemoglobin 14.3 GM/DL Hematocrit 42.7 % Mean Corpuscular Volume 96.6 FL Mean Corpuscular Hemoglobin 32.4 PG Mean Corpuscular Hemoglobin 33.5 % Concent Red Cell Distribution Width 13.6 % Platelet Count 267 TH/MM3 Mean Platelet Volume 8.8 FL Neutrophils (%) (Auto) 67.5 % Lymphocytes (%) (Auto) 17.9 % Monocytes (%) (Auto) 12.7 % Eosinophils (%) (Auto) 1.3 % Basophils (%) (Auto) 0.6 % Neutrophils # (Auto) 4.0 TH/MM3 Lymphocytes # (Auto) 1.1 TH/MM3 Monocytes # (Auto) 0.8 TH/MM3 Eosinophils # (Auto) 0.1 TH/MM3 Basophils # (Auto) 0.0 TH/MM3 CBC Comment DIFF FINAL Differential Comment Hemoglobin A1c 11.7 % Total Bilirubin 0.7 MG/DL Aspartate Amino Transf 621 U/L (AST/SGOT) Alanine Aminotransferase 833 U/L (ALT/SGPT) Alkaline Phosphatase 268 U/L Total Protein 5.9 GM/DL Albumin 2.8 GM/DL Triglycerides Level 74 MG/DL Cholesterol Level 136 MG/DL LDL Cholesterol 60 MG/DL HDL Cholesterol 61.5 MG/DL Cholesterol/HDL Ratio 2.21 RATIO B-Hydroxybutyrate 0.58 MMOL/L 0.54 MMOL/L Physical Examination HEENT: Normocephalic; atraumatic; no jaundice. CHEST: CTA CARDIAC: RRR ABDOMEN: Soft, nondistended, mild epigastric/mid abdominal tenderness; no hepatosplenomegaly; bowel sounds are present in all four quadrants. EXTREMITIES: No clubbing, cyanosis, or edema. SKIN: Normal; no rash; no jaundice. SUPERVISOR SPRING UP: No focal deficits; alert and oriented times three. (Freida Fitch) Assessment and Plan Plan ASSESSMENT: - Elevated LFTs. He had normal LFTs in 06/25. Denies hx of liver disease or hepatitis. Denies ETOH use. Mother had liver dz secondary to ETOH abuse. US liver (02/09/17)---> there are no gallstones identified, stone identified in the left kidney with dilation of the proximal collecting system. CT abdomen/pelvis without iv contrast (02/09/17)---> obstructing stone proximal third of the left ureter with moderate perinephric stranding. Likely related to polysubstance abuse. Acetaminophen level normal. Denies the use of acetaminophen products. Improving. T. Bili 0.7, AST 621, ALT 833, Alk Phosph 268. Likely related to his PSA - N/V, Abdominal pain. Pt came in with DKA with N/V/Pain. He was not taking his insulin and it is likely that his DKA caused his n/v. Per primary. Previous EGD (03/07/16) and this revealed severe esophagitis. Pathology of esophagus revealed squamous mucosa with features consistent with mild reflux esophagitis. - Gastroparesis. Not on meds. Would avoid Bethanechol with his obstructive kidney stone. - DKA. Per primary - Obstructive kidney stone. per PLAN: - Okay for clear liquids per GI standpoint- will defer to primary given DKA - PPI - If n/v persists, consider trial of EES. - Hepatitis profile, OLVIN, ASMA - Monitor LFT - Complete drug cessation - Supportive care - FUrther recommendations to follow based on results of above - Pt seen and examined by Dr. Davila and myself and this note is written on his behalf (Freida Fitch) Physician Comments Seen and examined with SUSY, doing better. Liver quintanilla ordered. Thank you (Fransisco Davila MD) Freida Fitch Feb 10, 2017 12:18 Fransisco Davila MD Feb 10, 2017 13:12
[2017-02-10] MEDS: cefTRIAXone INJ 2,000 MG in SODIUM CHLORIDE 0.9% INJ 100 ML IV SCH (13:24)
--- NOTE | 2017-02-10 15:04 | HHI.PR ---
Subjective Remarks Resting in bed, denying nausea or vomiting however he has inguinal/lower abdominal discomfort on the right side going to the scrotum mostly related to his ureter stone No fever or chills, blood sugar and BMP improved patient ate without problem Discussed with the nurse will transfer to medical floor Objective Vitals Vital Signs Date Time Temp Pulse Resp B/P Pulse Ox O2 Delivery O2 Flow Rate FiO2 02/10/17 10:00 67 02/10/17 08:00 65 02/10/17 08:00 98.2 65 12 133/77 100 02/10/17 06:00 68 02/10/17 04:00 76 02/10/17 04:00 97.6 68 12 113/69 100 02/10/17 02:00 80 02/10/17 00:00 80 02/10/17 00:00 97.9 80 31 125/75 100 02/09/17 22:00 73 02/09/17 20:00 79 02/09/17 20:00 97.7 79 16 114/68 100 02/09/17 19:45 100 21 02/09/17 18:00 80 I/O 02/09/17 02/09/17 02/09/17 02/10/17 02/10/17 02/10/17 07:00 15:00 23:00 07:00 15:00 23:00 Intake Total 4884 ml 1803 ml Output Total 1260 ml Balance 3624 ml 1803 ml Intake Oral 10 ml 5 ml IV Total 4874 ml 1798 ml Output Urine Total 1260 ml Result Diagram: 02/10/17 0529 02/10/17 0928 Objective Remarks GENERAL: This is a well-nourished, well-developed patient, in no apparent distress. SKIN: No rashes, warm and dry HEAD: Atraumatic. Normocephalic. EYES: Pupils equal round and reactive. Extraocular motions intact. No scleral icterus. ENT: Nose without bleeding, or drainage, Airway patent. NECK: Trachea midline. Supple CARDIOVASCULAR: Regular rate and rhythm without murmurs, gallops, or rubs. RESPIRATORY: Fair air entry bilaterally. No wheezes, rales, or rhonchi. GASTROINTESTINAL: Abdomen soft, non-tender, nondistended. Positive bowel sounds MUSCULOSKELETAL: Extremities without clubbing, cyanosis, or edema. Pedal pulses appreciated NEUROLOGICAL: Awake and alert. Moves all extremity. Normal speech.no focal neurological deficit A/P Problem List: (1) Medical non-compliance ICD Code: Z91.19 Status: Acute (2) SHARIFA (acute kidney injury) ICD Code: N17.9 Status: Acute (3) Acute hepatitis ICD Code: B17.9 Status: Acute (4) DKA (diabetic ketoacidoses) ICD Code: E13.10 Status: Resolved (5) Type 1 diabetes mellitus on insulin therapy ICD Code: E10.9 Status: Chronic (6) Gastroparesis ICD Code: K31.84 Status: Chronic (7) Cocaine abuse in remission ICD Code: F14.10 Status: Acute (8) Hydronephrosis of left kidney ICD Code: N13.30 Status: Acute (9) Left ureteral calculus ICD Code: N20.1 Status: Acute Assessment and Plan -DKA secondary to noncompliance with insulin therapy- RESOLVED Initially anion gap is 20, bicarbonate is 10. Admitted to ICU on insulin drip and DKA protocol. hemoglobin A1c 11.7. Benign gap closed, switch iv fluid to half-normal saline with potassium for 1 L due to hypernatremia and hypokalemia Repeat BMP at 1600 Stop insulin drip, patient started on healthy heart diabetic diet, resumed his 7030 basal insulin, ISS with Accu-Chek before meals daily at bedtime Transferred to medical for -Transaminitis with increased ALT/AST/alkaline phosphatase>> TRENDING DOWN liver ultrasound unremarkable, no gallstones, bilirubin elevated, coags are normal, Tylenol level normal. Patient denies using Tylenol or supplements. Denies any recent cocaine use, unprotected sexual encounters , denies history of IV drug abuse. Appreciate GI consultation, hepatic workup with OLVIN ASMA -Left ureteral stone 5-6 mm which is obstructing the proximal third of the left ureter with moderate perinephric stranding. Interestingly the patient does not have any left flank pain. Appreciate urology consultation no need for intervention at this point unless patient getting worse continue with IV fluids, pain control as needed. Rocephin 2 g IV daily prophylactically. -Acute kidney injury likely prerenal, nonoliguric. Continue with IV fluid resuscitation. Lactic acid is not elevated. Continue monitoring BMP -Gastroparesis with acute exacerbation with nausea and vomiting. Reglan IV. Zofran when necessary. Nothing by mouth. -Type 1 diabetes diagnosed in 1997 - takes Novolin 70/30 as an outpatient but is noncompliant. Consult life skills educator when off insulin drip. -History of cocaine use - denies recent use. Check urine drug screen. -Depression and anxiety - not currently being treated. Consider psychiatry consultation. -Previous esophagitis - start Protonix. -DVT prophylaxis with SCDs. Problem Qualifiers (1) DKA (diabetic ketoacidoses): Qualified Code: E10.10 - Diabetic ketoacidosis without coma associated with type 1 diabetes mellitus Dami Lerner MD Feb 10, 2017 15:04
[2017-02-10] MEDS: PANTOPRAZOLE SODIUM 40 MG VIAL IV PUSH SCH (17:31)
[2017-02-11] VITALS (7 sets, daily range): BP systolic 114–136; BP diastolic 78–82; PULSE 67–80; RESP 18; TEMP 98.1–98.3; O2SAT 94–99
[2017-02-11] MEDS: INSULIN NovoLIN REGULAR SUPPLEMENTAL SCALE SQ SCH ×4 (06:33→21:10)
[2017-02-11 07:36] LABS: INDIRECT BILIRUBIN 0.4 MG/DL (0.0-0.8); TOTAL BILIRUBIN ADULT 0.6 MG/DL (0.2-1.0)
[2017-02-11] MEDS: INSULIN HUMAN NPH/R 70/30 1,000 UNITS/10 ML VIAL SQ SCH ×2 (08:58→21:08)
[2017-02-11] MEDS: SODIUM CHLORIDE 0.9% FLUSH 10 ML FLUSH IV FLUSH SCH ×2 (08:58→21:09)
--- NOTE | 2017-02-11 13:18 | HHI.PR ---
Subjective Remarks This is complaining of left lower quadrant pain that transferred to his scrotum No fever or chills, GI following on increase liver enzymes and alkaline phosphatase Objective Vitals Vital Signs Date Time Temp Pulse Resp B/P Pulse Ox O2 Delivery O2 Flow Rate FiO2 02/11/17 12:00 98.3 71 18 119/80 96 02/11/17 08:00 98.3 72 18 114/82 94 02/11/17 04:00 98.3 75 18 136/79 99 02/11/17 00:00 98.1 80 18 130/79 97 02/10/17 23:51 75 02/10/17 22:00 75 02/10/17 21:53 100 21 02/10/17 20:00 75 02/10/17 20:00 98.5 75 18 116/73 100 02/10/17 18:00 90 02/10/17 16:00 99.0 66 17 124/74 100 02/10/17 16:00 66 02/10/17 14:00 66 I/O 02/10/17 02/10/17 02/10/17 02/11/17 02/11/17 02/11/17 07:00 15:00 23:00 07:00 15:00 23:00 Intake Total 1803 ml 2817 ml 1259 ml 480 ml Output Total 925 ml 275 ml Balance 1803 ml 1892 ml 984 ml 480 ml Intake Oral 5 ml 850 ml 600 ml 480 ml IV Total 1798 ml 1967 ml 659 ml Output Urine Total 925 ml 275 ml # Voids 1 2 # Bowel Movements 1 0 Result Diagram: 02/10/17 0529 02/10/17 1830 Imaging Last Impressions Liver Ultrasound 02/09/17 0000 Signed Impressions: Service Date/Time: Thursday, February 09, 2017 11:24 - CONCLUSION: 1. There are no gallstones identified. 2. Stone identified in the left kidney with dilatation of the proximal collecting system. Roscoe Ramirez MD FACR Abdomen/Pelvis CT 02/09/17 0000 Signed Impressions: Service Date/Time: Thursday, February 09, 2017 12:21 - CONCLUSION: Obstructing stone proximal third of the left ureter with moderate perinephric stranding. Roscoe Ramirez MD FACR Objective Remarks GENERAL: This is a well-nourished, well-developed patient, in no apparent distress. SKIN: No rashes, warm and dry HEAD: Atraumatic. Normocephalic. EYES: Pupils equal round and reactive. Extraocular motions intact. No scleral icterus. ENT: Nose without bleeding, or drainage, Airway patent. NECK: Trachea midline. Supple CARDIOVASCULAR: Regular rate and rhythm without murmurs, gallops, or rubs. RESPIRATORY: Fair air entry bilaterally. No wheezes, rales, or rhonchi. GASTROINTESTINAL: Abdomen soft, non-tender, nondistended. Positive bowel sounds MUSCULOSKELETAL: Extremities without clubbing, cyanosis, or edema. Pedal pulses appreciated NEUROLOGICAL: Awake and alert. Moves all extremity. Normal speech.no focal neurological deficit A/P Problem List: (1) Medical non-compliance ICD Code: Z91.19 Status: Acute (2) SHARIFA (acute kidney injury) ICD Code: N17.9 Status: Acute (3) Acute hepatitis ICD Code: B17.9 Status: Acute (4) DKA (diabetic ketoacidoses) ICD Code: E13.10 Status: Resolved (5) Type 1 diabetes mellitus on insulin therapy ICD Code: E10.9 Status: Chronic (6) Gastroparesis ICD Code: K31.84 Status: Chronic (7) Cocaine abuse in remission ICD Code: F14.10 Status: Acute (8) Hydronephrosis of left kidney ICD Code: N13.30 Status: Acute (9) Left ureteral calculus ICD Code: N20.1 Status: Acute Assessment and Plan /: Still feeling discomfort left lower quadrant, he denied feeling passing any stone, urology suggested stenting if symptoms doesn't improve, GI following on increase LFT and alkaline phosphatase, will continue monitoring A/P: -DKA secondary to noncompliance with insulin therapy- RESOLVED Initially anion gap is 20, bicarbonate is 10. Admitted to ICU on insulin drip and DKA protocol. hemoglobin A1c 11.7. Benign gap closed, switch iv fluid to half-normal saline with potassium for 1 L due to hypernatremia and hypokalemia Repeat BMP at 1600 Stop insulin drip, patient started on healthy heart diabetic diet, resumed his 7030 basal insulin, ISS with Accu-Chek before meals daily at bedtime Transferred to medical for -Transaminitis with increased ALT/AST/alkaline phosphatase>> TRENDING DOWN liver ultrasound unremarkable, no gallstones, bilirubin elevated, coags are normal, Tylenol level normal. Patient denies using Tylenol or supplements. Denies any recent cocaine use, unprotected sexual encounters , denies history of IV drug abuse. Appreciate GI consultation, hepatic workup with OLVIN BENNETT -Left ureteral stone 5-6 mm which is obstructing the proximal third of the left ureter with moderate perinephric stranding. Interestingly the patient does not have any left flank pain. Appreciate urology consultation no need for intervention at this point unless patient getting worse continue with IV fluids, pain control as needed. Rocephin 2 g IV daily prophylactically. -Acute kidney injury likely prerenal, nonoliguric. Continue with IV fluid resuscitation. Lactic acid is not elevated. Continue monitoring BMP -Gastroparesis with acute exacerbation with nausea and vomiting. Reglan IV. Zofran when necessary. Nothing by mouth. -Type 1 diabetes diagnosed in 1997 - takes Novolin 70/30 as an outpatient but is noncompliant. Consult adult educator when off insulin drip. -History of cocaine use - denies recent use. Check urine drug screen. -Depression and anxiety - not currently being treated. Consider psychiatry consultation. -Previous esophagitis - start Protonix. -DVT prophylaxis with SCDs. Problem Qualifiers (1) DKA (diabetic ketoacidoses): Qualified Code: E10.10 - Diabetic ketoacidosis without coma associated with type 1 diabetes mellitus Dami Lerner MD Feb 11, 2017 13:18
[2017-02-11] MEDS: cefTRIAXone INJ 2,000 MG in SODIUM CHLORIDE 0.9% INJ 100 ML IV SCH (13:45)
--- NOTE | 2017-02-11 16:26 | HHI.GIFU ---
Subjective Remarks Resting in bed. No n/v. Does have abdominal pain prior to eating- controlled. Denies ever being told he has hepatitis c. Objective Vitals I&O Vital Signs Date Time Temp Pulse Resp B/P Pulse Ox O2 Delivery O2 Flow Rate FiO2 02/11/17 12:00 98.3 71 18 119/80 96 02/11/17 08:00 98.3 72 18 114/82 94 02/11/17 04:00 98.3 75 18 136/79 99 02/11/17 00:00 98.1 80 18 130/79 97 02/10/17 23:51 75 02/10/17 22:00 75 02/10/17 21:53 100 21 02/10/17 20:00 75 02/10/17 20:00 98.5 75 18 116/73 100 02/10/17 18:00 90 I/O 02/10/17 02/10/17 02/10/17 02/11/17 02/11/17 02/11/17 07:00 15:00 23:00 07:00 15:00 23:00 Intake Total 1803 ml 2817 ml 1259 ml 480 ml Output Total 925 ml 275 ml Balance 1803 ml 1892 ml 984 ml 480 ml Intake Oral 5 ml 850 ml 600 ml 480 ml IV Total 1798 ml 1967 ml 659 ml Output Urine Total 925 ml 275 ml # Voids 1 2 # Bowel Movements 1 0 Laboratory Laboratory Tests Test 02/10/17 02/11/17 18:30 05:27 Potassium Level 3.8 Total Bilirubin 0.6 Direct Bilirubin 0.2 Indirect Bilirubin 0.4 Aspartate Amino Transf 762 (AST/SGOT) Alanine Aminotransferase 856 (ALT/SGPT) Alkaline Phosphatase 254 Total Protein 5.3 Albumin 2.6 Imaging Last Impressions Liver Ultrasound 02/09/17 0000 Signed Impressions: Service Date/Time: Thursday, February 09, 2017 11:24 - CONCLUSION: 1. There are no gallstones identified. 2. Stone identified in the left kidney with dilatation of the proximal collecting system. Roscoe Ramirez MD FACR Abdomen/Pelvis CT 02/09/17 0000 Signed Impressions: Service Date/Time: Thursday, February 09, 2017 12:21 - CONCLUSION: Obstructing stone proximal third of the left ureter with moderate perinephric stranding. Roscoe Ramirez MD FACR Physical Exam HEENT: Normocephalic; atraumatic; no jaundice. Throat is clear. CHEST: CTA CARDIAC: RRR ABDOMEN: Soft, nondistended, mild epigastric tenderness; no hepatosplenomegaly ; bowel sounds are present in all four quadrants. EXTREMITIES: No clubbing, cyanosis, or edema. SKIN: Normal; no rash; no jaundice. HONING JOB SETTER: No focal deficits; alert and oriented times three. Assessment and Plan Plan ASSESSMENT: - Elevated LFTs. He had normal LFTs in 06/25. Denies hx of liver disease or hepatitis. Denies ETOH use. Mother had liver dz secondary to ETOH abuse. US liver (02/09/17)---> there are no gallstones identified, stone identified in the left kidney with dilation of the proximal collecting system. CT abdomen/pelvis without iv contrast (02/09/17)---> obstructing stone proximal third of the left ureter with moderate perinephric stranding. Likely related to polysubstance abuse. Acetaminophen level normal. Denies the use of acetaminophen products. T. Bili0.6, AST 762, ALT 856, Alk Phosph 254. Likely related to his PSA, possibly on underlying HCV. - HCV Antibodies. Denies any hx of Hepatitis C. Will get genotype and viral load. - N/V, Abdominal pain. Pt came in with DKA with N/V/Pain. He was not taking his insulin and it is likely that his DKA caused his n/v. Per primary. Previous EGD (03/07/16) and this revealed severe esophagitis. Pathology of esophagus revealed squamous mucosa with features consistent with mild reflux esophagitis. - Gastroparesis. Not on meds. Would avoid Bethanechol with his obstructive kidney stone. - DKA. Per primary - Obstructive kidney stone. per PLAN: - NICOLLE from GI standpoint - PPI - Hepatitis C Genotype and viral load - Await AMA, OLVIN, ASMA - Monitor LFT - Complete drug cessation - Supportive care - FUrther recommendations to follow based on results of above - Pt seen and examined by Dr. Wilhelm and myself and this note is written on his behalf Freida Fitch Feb 11, 2017 16:26
[2017-02-11] MEDS: PANTOPRAZOLE SODIUM 40 MG VIAL IV PUSH SCH (17:18)
[2017-02-12] VITALS (8 sets, daily range): BP systolic 117–144; BP diastolic 73–83; PULSE 64–98; RESP 16–20; TEMP 97.8–98.3; O2SAT 95–99
[2017-02-12] MEDS: INSULIN NovoLIN REGULAR SUPPLEMENTAL SCALE SQ SCH ×4 (05:37→21:00)
[2017-02-12 07:14] LABS: INDIRECT BILIRUBIN 0.4 MG/DL (0.0-0.8); TOTAL BILIRUBIN ADULT 0.9 MG/DL (0.2-1.0)
[2017-02-12] MEDS: INSULIN HUMAN NPH/R 70/30 1,000 UNITS/10 ML VIAL SQ SCH ×2 (08:08→22:03)
[2017-02-12] MEDS: SODIUM CHLORIDE 0.9% FLUSH 10 ML FLUSH IV FLUSH SCH ×2 (08:08→22:03)
--- NOTE | 2017-02-12 12:11 | HHI.PR ---
Subjective Remarks Follow up on alcoholic hepatitis with nephrolithiasis and increased transaminitis, newly diagnosed with hepatitis C need to rule out acute phase Today patient still having right upper quadrant tenderness which reflect to the lower quadrant, he doesn't have a dysuria, he didn't think he passed any urinary stone the GI [employer], hepatic workup in process Objective Vitals Vital Signs Date Time Temp Pulse Resp B/P Pulse Ox O2 Delivery O2 Flow Rate FiO2 02/12/17 08:00 97.9 75 20 131/83 98 02/12/17 08:00 98 02/12/17 04:00 98.3 74 18 122/76 98 02/12/17 00:00 98.1 84 18 144/80 99 02/11/17 20:50 67 02/11/17 20:14 98.3 69 18 120/78 97 02/11/17 16:00 98.2 75 18 125/82 97 I/O 02/11/17 02/11/17 02/11/17 02/12/17 02/12/17 02/12/17 07:00 15:00 23:00 07:00 15:00 23:00 Intake Total 480 ml 480 ml 480 ml 480 ml Balance 480 ml 480 ml 480 ml 480 ml Intake Oral 480 ml 480 ml 480 ml 480 ml # Voids 2 3 1 2 # Bowel Movements 0 0 0 Result Diagram: 02/10/17 0529 02/10/17 1830 Objective Remarks GENERAL: This is a well-nourished, well-developed patient, in no apparent distress. SKIN: No rashes, warm and dry HEAD: Atraumatic. Normocephalic. EYES: Pupils equal round and reactive. Extraocular motions intact. No scleral icterus. ENT: Nose without bleeding, or drainage, Airway patent. NECK: Trachea midline. Supple CARDIOVASCULAR: Regular rate and rhythm without murmurs, gallops, or rubs. RESPIRATORY: Fair air entry bilaterally. No wheezes, rales, or rhonchi. GASTROINTESTINAL: Abdomen soft, non-tender, nondistended. Positive bowel sounds MUSCULOSKELETAL: Extremities without clubbing, cyanosis, or edema. Pedal pulses appreciated NEUROLOGICAL: Awake and alert. Moves all extremity. Normal speech.no focal neurological deficit A/P Problem List: (1) Medical non-compliance ICD Code: Z91.19 Status: Acute (2) SHARIFA (acute kidney injury) ICD Code: N17.9 Status: Acute (3) Acute hepatitis ICD Code: B17.9 Status: Acute (4) DKA (diabetic ketoacidoses) ICD Code: E13.10 Status: Resolved (5) Type 1 diabetes mellitus on insulin therapy ICD Code: E10.9 Status: Chronic (6) Gastroparesis ICD Code: K31.84 Status: Chronic (7) Cocaine abuse in remission ICD Code: F14.10 Status: Acute (8) Hydronephrosis of left kidney ICD Code: N13.30 Status: Acute (9) Left ureteral calculus ICD Code: N20.1 Status: Acute Assessment and Plan A/P: -DKA secondary to noncompliance with insulin therapy- RESOLVED Initially anion gap is 20, bicarbonate is 10. Admitted to ICU on insulin drip and DKA protocol. hemoglobin A1c 11.7. Benign gap closed, switch iv fluid to half-normal saline with potassium for 1 L due to hypernatremia and hypokalemia Repeat BMP at 1600 Stop insulin drip, patient started on healthy heart diabetic diet, resumed his 7030 basal insulin, ISS with Accu-Chek before meals daily at bedtime -Transaminitis with increased ALT/AST/alkaline phosphatase> worsening today, ALT 1031, AST 700 -Positive hepatitis C rule out acute face Still feeling discomfort left lower quadrant, he denied feeling passing any stone, GI following on increase LFT and alkaline phosphatase, positive hepatitis C, awaiting genotype and vital load, liver ultrasound unremarkable, no gallstones, bilirubin elevated, coags are normal, Tylenol level normal. Patient denies using Tylenol or supplements. Denies any recent cocaine use, unprotected sexual encounters , denies history of IV drug abuse. Appreciate GI consultation, hepatic workup with OLVIN ASMA still pending -Left ureteral stone 5-6 mm which is obstructing the proximal third of the left ureter with moderate perinephric stranding. Interestingly the patient does not have any left flank pain. Appreciate urology consultation no need for intervention at this point unless patient getting worse continue with IV fluids, pain control as needed. Rocephin 2 g IV daily prophylactically.urology suggested stenting if symptoms doesn't improve -Acute kidney injury likely prerenal, nonoliguric. Continue with IV fluid resuscitation. Lactic acid is not elevated. Continue monitoring BMP -Gastroparesis with acute exacerbation with nausea and vomiting. Reglan IV. Zofran when necessary. Nothing by mouth. -Type 1 diabetes diagnosed in 1997 - takes Novolin 70/30 as an outpatient but is noncompliant. Consult family educator when off insulin drip. -History of cocaine use - denies recent use. Check urine drug screen. -Depression and anxiety - not currently being treated. Consider psychiatry consultation. -Previous esophagitis - start Protonix. -DVT prophylaxis with SCDs. Problem Qualifiers (1) DKA (diabetic ketoacidoses): Qualified Code: E10.10 - Diabetic ketoacidosis without coma associated with type 1 diabetes mellitus Dami Lerner MD Feb 12, 2017 12:11
[2017-02-12] MEDS: cefTRIAXone INJ 2,000 MG in SODIUM CHLORIDE 0.9% INJ 100 ML IV SCH (14:44)
[2017-02-12] MEDS: PANTOPRAZOLE SODIUM 40 MG VIAL IV PUSH SCH (17:05)
[2017-02-13 04:17] VITALS: BP 125/76; PULSE 82; RESP 16; TEMP 98; O2SAT 98
[2017-02-13] MEDS: INSULIN NovoLIN REGULAR SUPPLEMENTAL SCALE SQ SCH ×2 (05:54→11:00)
[2017-02-13 07:29] VITALS: PULSE 81
[2017-02-13 08:05] VITALS: PULSE 78
[2017-02-13] MEDS: SODIUM CHLORIDE 0.9% FLUSH 10 ML FLUSH IV FLUSH SCH (08:08)
[2017-02-13] MEDS: INSULIN HUMAN NPH/R 70/30 1,000 UNITS/10 ML VIAL SQ SCH (08:09)
[2017-02-13 10:17] VITALS: PULSE 82
[2017-02-13 10:23] VITALS: BP 123/80; PULSE 88; RESP 18; TEMP 97.4; O2SAT 98
--- NOTE | 2017-02-13 11:25 | HHI.PR ---
Subjective Remarks Follow-up for right upper question pain secondary to hepatitis C. Patient stated that he continues to have right upper quadrant pain but has improved. Although he is very comfortable sitting in bed making phone call. Denying nausea or vomiting. Her by mouth intake. He remains afebrile. Objective Vitals Vital Signs Date Time Temp Pulse Resp B/P Pulse Ox O2 Delivery O2 Flow Rate FiO2 02/13/17 10:23 97.4 88 18 123/80 98 02/13/17 10:17 82 02/13/17 08:05 78 02/13/17 07:29 81 02/13/17 04:17 98.0 82 16 125/76 98 02/12/17 23:10 97.9 64 16 117/74 95 02/12/17 19:59 87 02/12/17 19:36 98.3 67 18 123/81 98 02/12/17 16:00 98.0 70 20 122/73 99 02/12/17 12:00 97.8 77 20 124/73 98 I/O 02/12/17 02/12/17 02/12/17 02/13/17 02/13/17 02/13/17 07:00 15:00 23:00 07:00 15:00 23:00 Intake Total 480 ml 720 ml 1200 ml 60 ml Output Total 1200 ml Balance 480 ml 720 ml 1200 ml -1140 ml Intake Oral 480 ml 720 ml 1200 ml 60 ml Output Urine Total 1200 ml # Voids 2 5 2 # Bowel Movements 0 1 0 0 Result Diagram: 02/10/17 0529 02/10/17 1830 Objective Remarks GENERAL: in NAD and has no signs of being in pain or distress. CARDIOVASCULAR: Regular rate and rhythm without murmurs, gallops, or rubs. RESPIRATORY: Breath sounds equal bilaterally. No accessory muscle use. GASTROINTESTINAL: Abdomen soft, nondistended. + mild RUQ with deep palpitation. MUSCULOSKELETAL: No cyanosis, or edema. BACK: Nontender without obvious deformity. No CVA tenderness. Medications and IVs Current Medications Sodium Chloride 2 ml 2 ml UNSCH PRN IVF FLUSH AFTER USING IV ACCESS; Start 02/09 at 09:00; Stop 02/09/17 at 10:34; Status DC Sodium Chloride 1,000 ml @ 999 mls/hr BOLUS ONCE IV Last administered on t 09:12; Start 02/09/17 at 09:15; Stop 02/09/17 at 10:15; Status DC Sodium Chloride 1,000 ml @ 999 mls/hr BOLUS ONCE IV Last administered on 10:09; Start 02/09/17 at 09:15; Stop 02/09/17 at 10:15; Status DC Sodium Chloride 1,000 ml @ 250 mls/hr Q4H IV Last administered on 02/09/17 11: 16; Start 02/09/17 at 10:11; Stop 02/10/17 at 18:55; Status DC Dextrose/Sodium Chloride (D5W-NS 1000 ml Inj) 1,000 ml @ 200 mls/hr Q5H IV Last administered on 02/10/17 07:40; Start 02/09/17 at 10:11; Stop 02/10/17 at 09: 32; Status DC Insulin Human Regular 7 units 7 units BOLUS ONCE IV PUSH Last administered on 02/09/17 11:15; Start 02/09/17 at 10:15; Stop 02/09/17 at 10:16; Status DC Insulin Human Regular 100 units/ Sodium Chloride 100 ml @ 0 mls/hr TITRATE IV Last administered on 02/09/17 11:13; Start 02/09/17 at 10:15; Stop 02/10/17 at 09: 37; Status DC Potassium Chloride 100 ml @ 100 mls/hr Q1H PRN IV SEE LABEL COMMENTS; Start at 10:15; Status Cancel Potassium Chloride 100 ml @ 50 mls/hr Q2H PRN IV SEE LABEL COMMENTS; Start 02/09/17 at 10:15; Status Cancel Potassium Chloride 100 ml @ 100 mls/hr Q1H PRN IV SEE LABEL COMMENTS Last administered on 02/10/17 10:14; Start 02/09/17 at 10:15; Stop 02/10/17 at 18:55; Status DC Potassium Chloride 100 ml @ 100 mls/hr Q1H PRN IV SEE LABEL COMMENTS; Start at 10:15; Status Cancel Potassium Chloride 100 ml @ 50 mls/hr Q2H PRN IV SEE LABEL COMMENTS Last administered on 02/09/17 17:11; Start 02/09/17 at 10:15; Stop 02/10/17 at 18:55; Status DC Potassium Chloride 100 ml @ 50 mls/hr Q2H PRN IV SEE LABEL COMMENTS; Start 02/09/17 at 10:15; Status Cancel Potassium Chloride 100 ml @ 50 mls/hr Q2H PRN IV SEE LABEL COMMENTS; Start 02/09/17 at 10:15; Status Cancel Potassium Chloride (KCl 20 Meq Premix Inj) 100 ml @ 50 mls/hr Q2H PRN IV SEE LABEL COMMENTS; Start 02/09/17 at 10:15; Status Cancel Sodium Bicarbonate (Sodium Bicarbonate 8.4% Inj) 100 meq UNSCH PRN IV SEE LABEL COMMENTS; Start 02/09/17 at 10:15; Status Cancel Sodium Bicarbonate 50 meq 50 meq UNSCH PRN IV SEE LABEL COMMENTS; Start at 10:15; Status Cancel Sodium Phosphate/ Sodium Chloride (Sodium Phosphate Inj/NS Inj) 105 ml @ 25 mls /hr UNSCH PRN IV SEE LABEL COMMENTS; Start 02/09/17 at 10:15; Status Cancel Ondansetron HCl (Zofran Inj) 4 mg ONCE ONCE IV PUSH Last administered on 11:15; Start 02/09/17 at 10:15; Stop 02/09/17 at 10:17; Status DC Morphine Sulfate (Morphine Inj) 4 mg ONCE ONCE IV PUSH Last administered on 11:16; Start 02/09/17 at 10:15; Stop 02/09/17 at 10:17; Status DC Sodium Chloride (NS Flush) 2 ml UNSCH PRN IV FLUSH FLUSH AFTER USING IV ACCESS Last administered on 02/11/17 17:21; Start 02/09/17 at 10:30 Sodium Chloride (NS Flush) 2 ml BID IV FLUSH Last administered on 02/13/17 08: 08; Start 02/09/17 at 21:00 Ondansetron HCl (Zofran Inj) 4 mg Q6H PRN IVP NAUSEA OR VOMITING Last administered on 02/10/17 17:41; Start 02/09/17 at 10:30 Oxycodone HCl (Roxicodone) 5 mg Q4H PRN PO PAIN SCALE 3 TO 5 Last administered on 02/13/17 06:51; Start 02/09/17 at 10:30 Naloxone HCl 0.4 mg 0.4 mg UNSCH PRN IV SEE LABEL COMMENTS; Start 02/09/17 at 10 :30 Ceftriaxone Sodium/Sodium Chloride (Rocephin Inj/NS Inj) 100 ml @ 200 mls/hr Q24H IV Last administered on 02/12/17 14:44; Start 02/09/17 at 14:00 Pantoprazole Sodium (Protonix Inj) 40 mg Q24H IV PUSH Last administered on 17:05; Start 02/09/17 at 16:00 Insulin Human Isoph/Insulin Regular (NovoLIN 70/30 INJ) 15 units BID SQ Last administered on 02/13/17 08:09; Start 02/10/17 at 09:30 Dextrose (D50w (Vial) Inj) 25 ml UNSCH PRN IV PUSH HYPOGLYCEMIA-SEE COMMENTS; Start 02/10/17 at 09:30 Glucagon (Glucagon Inj) 1 mg UNSCH PRN OTHER HYPOGLYCEMIA-SEE COMMENTS; Start 02/10/17 at 09:30 Insulin Human Regular 1 1 ACHS SLIDING SCALE SQ Last administered on 02/13/17 05:54; Start 02/10/17 at 11:00 Potassium Chloride/Sodium Chloride (1/2 NS + KCl 20 Meq Inj) 1,000 ml @ 84 mls/ hr [id number] IV Last administered on 02/10/17 09:42; Start 02/10/17 at 09:30; Stop 02/10/17 at 21:24; Status DC A/P Problem List: (1) Medical non-compliance ICD Code: Z91.19 Status: Acute (2) SHARIFA (acute kidney injury) ICD Code: N17.9 Status: Acute (3) Acute hepatitis ICD Code: B17.9 Status: Acute (4) DKA (diabetic ketoacidoses) ICD Code: E13.10 Status: Resolved (5) Type 1 diabetes mellitus on insulin therapy ICD Code: E10.9 Status: Chronic (6) Gastroparesis ICD Code: K31.84 Status: Chronic (7) Cocaine abuse in remission ICD Code: F14.10 Status: Acute (8) Hydronephrosis of left kidney ICD Code: N13.30 Status: Acute (9) Left ureteral calculus ICD Code: N20.1 Status: Acute Assessment and Plan DKA secondary to noncompliance with insulin therapy RESOLVED Initially anion gap is 20, bicarbonate is 10. Admitted to ICU on insulin drip and DKA protocol. hemoglobin A1c 11.7. Benign gap closed, switch iv fluid to half-normal saline with potassium for 1 L due to hypernatremia and hypokalemia Stop insulin drip, patient started on healthy heart diabetic diet, resumed his 7030 basal insulin, ISS with Accu-Chek before meals daily at bedtime Acute Hepatitis C GI consulted and ff. pending work up to determine treatment. LFTs stable and clinically doing well. Left ureteral stone 5-6 mm which is obstructing the proximal third of the left ureter with moderate perinephric stranding. I asymptomatic. urologist consulted and no procedure indicated at the moment since he is asymptomatic. UA was negative and did not suggest a UTI. Patient is also asymptomatic. Will discontinue Rocephin. Acute kidney injury likely prerenal, nonoliguric RESOLVED Gastroparesis with acute exacerbation with nausea and vomiting. RESOLVED maybe exacerbated by DKA. Type 1 diabetes noncompliant on insulin. Polysubstance abuse UA positive for cocaine, opioids, benzos and cannabinoids. Extensive education given. Previous esophagitis On Protonix DVT prophylaxis with SCDs. Discharge Planning Pending clearance from GI in order for patient to be discharged. Otherwise patient is medically stable for discharge. Problem Qualifiers (1) DKA (diabetic ketoacidoses): Qualified Code: E10.10 - Diabetic ketoacidosis without coma associated with type 1 diabetes mellitus Tasneem Saldivar MD Feb 13, 2017 11:25
[2017-02-13] MEDS ORDERED: PROT40TA PO (11:39)
--- NOTE | 2017-02-13 11:44 | HHI.DCPOC ---
Discharge Care Plan Diagnosis: (1) Type 1 diabetes mellitus on insulin therapy (2) Gastroparesis (3) Polysubstance abuse (4) Hepatitis C Goals to Promote Your Health * To prevent worsening of your condition and complications * To maintain your health at the optimal level Directions to Meet Your Goals Take your medications as prescribed Follow your dietary instruction Follow activity as directed Keep your appointments as scheduled Take your immunizations and boosters as scheduled If your symptoms worsen call your PCP, if no PCP go to Urgent Care Center or Emergency Room Smoking is Dangerous to Your Health. Avoid second hand smoke Call the 24-hour hour crisis hotline for domestic abuse at Tasneem Saldivar MD Feb 13, 2017 11:44
--- NOTE | 2017-02-13 11:46 | HHI.DS ---
Discharge Summary Admission Date Feb 09, 2017 at 10:24 Discharge Date: Feb 13, 2017 Admitting Diagnosis diabetic ketoacidosis (1) SHARIFA (acute kidney injury) ICD Code: N17.9 Diagnosis: Principal (2) Acute hepatitis ICD Code: B17.9 Diagnosis: Principal (3) DKA (diabetic ketoacidoses) ICD Code: E13.10 Diagnosis: Principal (4) Type 1 diabetes mellitus on insulin therapy ICD Code: E10.9 Diagnosis: Secondary (5) Gastroparesis ICD Code: K31.84 Diagnosis: Secondary (6) Hydronephrosis of left kidney ICD Code: N13.30 Diagnosis: Secondary (7) Left ureteral calculus ICD Code: N20.1 Diagnosis: Secondary (8) Medical non-compliance ICD Code: Z91.19 Diagnosis: Secondary (9) Polysubstance abuse ICD Code: F19.10 Diagnosis: Secondary (10) Hepatitis C ICD Code: B19.20 Diagnosis: Secondary Procedures see hospital course. Brief History - From Admission This is a 47 year-old female with past medical history of type 1 diabetes, frequent admissions for DKA, due to noncompliance with insulin who presented to the ER today complaining of high blood sugars, nausea and vomiting. 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 He has generalized abdominal pain from vomiting. He states he typically gets vomiting from his gastroparesis when he is noncompliant with his insulin. He denies any flank pain. Denies any dysuria or urgency. Denies hematuria. Denies fever or chills. No palliative or provocative factors, symptoms severe. Emergency department he was found to be in DKA and was started on IV insulin. The patient also had notable elevation of liver enzymes. Abdominal CT scan also showed an obstructing left ureteral stone 5-6 mm in the proximal third of the left ureter with associated hydronephrosis and perinephric stranding. Patient denies taking any Tylenol, supplements, states he is not sexually active currently, denies history of IV drug abuse. He does have a history of cocaine use but denies any recently. CBC/BMP: 02/10/17 0529 02/10/17 1830 Significant Findings Laboratory Tests Test 02/11/17 02/12/17 05:27 06:20 Aspartate Amino Transf 762 U/L (15-37) 791 U/L (15-37) (AST/SGOT) Alanine Aminotransferase 856 U/L (12-78) 1031 U/L (ALT/SGPT) (12-78) Alkaline Phosphatase 254 U/L 307 U/L (45-117) (45-117) Total Protein 5.3 GM/DL 5.8 GM/DL (6.4-8.2) (6.4-8.2) Albumin 2.6 GM/DL 2.8 GM/DL (3.4-5.0) (3.4-5.0) Direct Bilirubin 0.5 MG/DL (0.0-0.2) Imaging Last Impressions Liver Ultrasound 02/09/17 0000 Signed Impressions: Service Date/Time: Thursday, February 09, 2017 11:24 - CONCLUSION: 1. There are no gallstones identified. 2. Stone identified in the left kidney with dilatation of the proximal collecting system. Roscoe Ramirez MD FACR Abdomen/Pelvis CT 02/09/17 0000 Signed Impressions: Service Date/Time: Thursday, February 09, 2017 12:21 - CONCLUSION: Obstructing stone proximal third of the left ureter with moderate perinephric stranding. Roscoe Ramirez MD FACR PE at Discharge GENERAL: in NAD and has no signs of being in pain or distress. CARDIOVASCULAR: Regular rate and rhythm without murmurs, gallops, or rubs. RESPIRATORY: Breath sounds equal bilaterally. No accessory muscle use. GASTROINTESTINAL: Abdomen soft, nondistended. + mild RUQ with deep palpitation. MUSCULOSKELETAL: No cyanosis, or edema. BACK: Nontender without obvious deformity. No CVA tenderness. Hospital Course DKA secondary to noncompliance with insulin therapy RESOLVED Initially anion gap is 20, bicarbonate is 10. Admitted to ICU on insulin drip and DKA protocol. hemoglobin A1c 11.7. Benign gap closed, switch iv fluid to half-normal saline with potassium for 1 L due to hypernatremia and hypokalemia Stop insulin drip, patient started on healthy heart diabetic diet, resumed his 7030 basal insulin, ISS with Accu-Chek before meals daily at bedtime Acute Hepatitis C GI consulted and ff. labs order and patient to follow up as outpatient. at the moment not a candidate for treatment due to polysubstance abuse but he will f/u with GI. LFTs stable and clinically doing well. Left ureteral stone 5-6 mm which is obstructing the proximal third of the left ureter with moderate perinephric stranding. I asymptomatic. urologist consulted and no procedure indicated at the moment since he is asymptomatic. UA was negative and did not suggest a UTI. Patient is also asymptomatic. Rocephin was d/david. Acute kidney injury likely prerenal, nonoliguric RESOLVED with IVFs Gastroparesis with acute exacerbation with nausea and vomiting. RESOLVED maybe exacerbated by DKA. Type 1 diabetes noncompliant on insulin. Polysubstance abuse UA positive for cocaine, opioids, benzos and cannabinoids. Extensive education given. Previous esophagitis On Protonix Pt Condition on Discharge: Stable Discharge Disposition: Discharge Home Discharge Time: <= 30 minutes Discharge Instructions DIET: Follow Instructions for: Diabetic Diet Activities you can perform: Regular-No Restrictions Follow up Referrals: PCP Follow-up - 1 Week New Orders: HEPATIC FUNCTION ORDAZ - 1 Week New Medications: Pantoprazole (Protonix) 40 Mg Tab 40 MG PO DAILY Reflux #30 Ref 0 TAB Continued Medications: Insulin Aspart Inj (Novolog Inj) 1,000 Unit/10 Ml Vial 0 SQ DIRECTED Sliding Scale as directed. Blood Sugar Management #10 Ref 0 ML Insulin Human Isophane-Regular 70-30 Inj (Novolin 70-30 Inj) 1,000 Unit/10 Ml Vial 15 UNITS SQ BID Blood Sugar Management Ref 0 ML Discontinued Medications: Alprazolam (Xanax) 1 Mg Tab 1 MG PO Q6H PRN ANXIETY Ref 0 TAB Tasneem Saldivar MD Feb 13, 2017 11:46
--- NOTE | 2017-02-13 11:59 | HHI.GIFU ---
Subjective Remarks Resting in bed. No n/v. States he still has intermittent abdominal pain. D/W patient importance of gastroparesis diet, complete ETOH cessation, polysubstance abuse cessation. Objective Vitals I&O Vital Signs Date Time Temp Pulse Resp B/P Pulse Ox O2 Delivery O2 Flow Rate FiO2 02/13/17 10:23 97.4 88 18 123/80 98 02/13/17 10:17 82 02/13/17 08:05 78 02/13/17 07:29 81 02/13/17 04:17 98.0 82 16 125/76 98 02/12/17 23:10 97.9 64 16 117/74 95 02/12/17 19:59 87 02/12/17 19:36 98.3 67 18 123/81 98 02/12/17 16:00 98.0 70 20 122/73 99 02/12/17 12:00 97.8 77 20 124/73 98 I/O 02/12/17 02/12/17 02/12/17 02/13/17 02/13/17 02/13/17 07:00 15:00 23:00 07:00 15:00 23:00 Intake Total 480 ml 720 ml 1200 ml 60 ml Output Total 1200 ml Balance 480 ml 720 ml 1200 ml -1140 ml Intake Oral 480 ml 720 ml 1200 ml 60 ml Output Urine Total 1200 ml # Voids 2 5 2 # Bowel Movements 0 1 0 0 Imaging Last Impressions Liver Ultrasound 02/09/17 0000 Signed Impressions: Service Date/Time: Thursday, February 09, 2017 11:24 - CONCLUSION: 1. There are no gallstones identified. 2. Stone identified in the left kidney with dilatation of the proximal collecting system. Roscoe Ramirez MD FACR Abdomen/Pelvis CT 02/09/17 0000 Signed Impressions: Service Date/Time: Thursday, February 09, 2017 12:21 - CONCLUSION: Obstructing stone proximal third of the left ureter with moderate perinephric stranding. Roscoe Ramirez MD FACR Physical Exam HEENT: Normocephalic; atraumatic; no jaundice. Throat is clear. CHEST: CTA CARDIAC: RRR ABDOMEN: Soft, nondistended, mild epigastric tenderness; no hepatosplenomegaly ; bowel sounds are present in all four quadrants. EXTREMITIES: No clubbing, cyanosis, or edema. SKIN: Normal; no rash; no jaundice. ENVIRONMENTAL SPECIALIST: No focal deficits; alert and oriented times three. Assessment and Plan Plan ASSESSMENT: - Elevated LFTs. He had normal LFTs in 06/25. Denies hx of liver disease or hepatitis. Denies ETOH use. Mother had liver dz secondary to ETOH abuse. US liver (02/09/17)---> there are no gallstones identified, stone identified in the left kidney with dilation of the proximal collecting system. CT abdomen/pelvis without iv contrast (02/09/17)---> obstructing stone proximal third of the left ureter with moderate perinephric stranding. Likely related to polysubstance abuse. Acetaminophen level normal. Denies the use of acetaminophen products. T. Bili 0.9, AST 791, ALT 1031, Alk Phosph 307. Likely related to his PSA, possibly on underlying HCV. D/W patient importance of complete etoh cessation/psa cessation, repeat labs in 1 week, FU DANYELLE 2 weeks. Verbalizes understanding. - HCV Antibodies. Denies any hx of Hepatitis C. Genotype and viral load are pending.. - N/V, Abdominal pain. Pt came in with DKA with N/V/Pain. He was not taking his insulin and it is likely that his DKA caused his n/v. Per primary. Previous EGD (03/07/16) and this revealed severe esophagitis. Pathology of esophagus revealed squamous mucosa with features consistent with mild reflux esophagitis. - Gastroparesis. Not on meds. Would avoid Bethanechol with his obstructive kidney stone. Trial of EES - DKA. Per primary - Obstructive kidney stone. per PLAN: - Okay to d/c home from GI standpoint - Gastroparesis diet- soft diet, small frequent meals, chew food well, small bites - No ETOH - No illicit drugs- including marijuana - LFT in one week - FU DANYELLE 2 weeks - Follow HCV genotype and viral load, AMA as outpatient - Pt seen and examined by Dr. Davila and myself and this note is written no his behalf Freida Fitch Feb 13, 2017 11:59
[2017-02-13 12:02] VITALS: PULSE 78
[2017-02-13] MEDS ORDERED: ERYTHROMYCIN ETHYLSUCCINATE 200 MG/5 ML SUSP 100 ML BOTTLE PO SCH (14:00)
[2017-02-14 11:52] LABS: HCV RNA PCR IU/ML 9730000 IU/mL (()); HCV RNA PCR LOGIU/ML 6.99 (())
[2017-02-14 15:54] LABS: MITOCHONDRIAL ABS LESS THAN 20.0 U (())
[2017-02-14 23:54] LABS: HEPATITIS C RNA GENOTYPE 1a (())
== END 2017-02-13 13:00 | disposition home or self-care (01) | DRG 638 ==
LOC: PHED 08:31 → PHEDA 10:24 → HIMN 16:30 → N04A 02-10 23:38
PROVIDERS: ADMIT Family Medicine; ATTEND Family Medicine
DX: E10.10 Type 1 diabetes mellitus with ketoacidosis without coma (principal); B17.10 Acute hepatitis C without hepatic coma; N17.9 Acute kidney failure, unspecified; E87.0 Hyperosmolality and hypernatremia; K31.84 Gastroparesis; N13.2 Hydronephrosis with renal and ureteral calculous obstruction; E10.42 Type 1 diabetes mellitus with diabetic polyneuropathy; Z91.14 Patient's other noncompliance with medication regimen; Z91.19 Patient's noncompliance with other medical treatment and regimen; Z87.442 Personal history of urinary calculi; F32.9 Major depressive disorder, single episode, unspecified; F41.9 Anxiety disorder, unspecified; F17.210 Nicotine dependence, cigarettes, uncomplicated; Z88.6 Allergy status to analgesic agent; Z88.5 Allergy status to narcotic agent; Z79.4 Long term (current) use of insulin; F14.10 Cocaine abuse, uncomplicated; K21.0 Gastro-esophageal reflux disease with esophagitis; E87.6 Hypokalemia; K70.10 Alcoholic hepatitis without ascites
CPT/HCPCS: 74176; 76705; 80048; 80053; 80061; 80074; 80076; 80307; 81001; 82010; 82247; 82248; 82550; 82805; 82948; 83036; 83520; 83605; 83690; 83735; 84100; 84132; 85025; 85610; 85730; 86038; 86256; 87522; 87641; 87902; 93005; C9113; J0696; J1815; J1817; J2270; J2405; J3480; J7030; J7042

== ENCOUNTER 2017-09-04 18:39 | Inpatient (IN) | payer SELFPAY ==
[~2017-09-04] VITALS: Ht 185.4 cm; Wt 58.2 kg
[2017-09-04] VITALS (9 sets, daily range): BP systolic 134–159; BP diastolic 76–91; PULSE 100–118; RESP 18–22; TEMP 97.6–98.4; O2SAT 98–100
[~2017-09-04 18:39] MED LIST changes: -NOVOLOGSS SQ; +PROT40TA PO; -XANA1TAB6 PO
--- NOTE | 2017-09-04 19:02 | PD ---
HPI Chief Complaint: Diabetic Time Seen by Provider: 18:54 Travel History International Travel<30 days: No Contact w/Intl Traveler<30days: No Traveled to known affect area: No History of Present Illness HPI 47yo M with PMH of insulin dependent diabetes and gastroparesis presents to the ED with c/o nausea and NBNB vomiting at about 2pm today. Said he started having some epigastric abdominal pain and burning midsternal chest pain after vomiting. Also with some cough. +Polyuria and polydipsia. Pt has multiple admissions for DKA secondary to noncompliance and has been noncompliant with his insulin. Last dose was yesterday morning. Denies any fever, sob, focal weakness or numbness. PFSH Past Medical History Hx Anticoagulant Therapy: No Arthritis: No Asthma: No Autoimmune Disease: No Blood Disorders: Yes Anxiety: Yes Depression: No Heart Rhythm Problems: No Cancer: No Cardiovascular Problems: No High Cholesterol: No Chemotherapy: No Chest Pain: No Congestive Heart Failure: No COPD: No Cerebrovascular Accident: No Diabetes: Yes Patient Takes Glucophage: No Diminished Hearing: No Endocrine: Yes Gastrointestinal Disorders: Yes (GASTROPARESIS) GERD: No Genitourinary: No Headaches: No Hiatal Hernia: No Hypertension: No Immune Disorder: No Implanted Vascular Access Dvce: No Kidney Stones: Yes Musculoskeletal: No Neurologic: No Psychiatric: Yes Reproductive: No Respiratory: No Immunizations Current: Yes Migraines: No Radiation Therapy: No Renal Failure: No Seizures: No Sickle Cell Disease: No Sleep Apnea: No Thyroid Disease: No Ulcer: No Past Surgical History Abdominal Surgery: No AICD: No Arteriovenous Shunt: No Cardiac Surgery: No Ear Surgery: No Endocrine Surgery: No Eye Surgery: No Genitourinary Surgery: No Gynecologic Surgery: No Hysterectomy: No Insulin Pump: No Joint Replacement: No Neurologic Surgery: No Oral Surgery: No Pacemaker: No Thoracic Surgery: No Other Surgery: No Social History Alcohol Use: Yes (SOCIALLY) Tobacco Use: Yes Substance Use: Yes (MARIJUANA, COCAINE) Allergies-Medications (Allergen,Severity, Reaction): Coded Allergies: tramadol (Verified Allergy, Severe, INCREASES BLOOD SUGAR, 09/04/17) aspirin (Verified Allergy, Unknown, Urinary Freq (Inc/Dec), 09/04/17) DIABETIC Reported Meds & Prescriptions Reported Meds & Active Scripts Active Reported Novolin 70-30 Inj (Insulin Human Isoph/Insulin Regular) 1,000 Unit/10 Ml Vial 15 Units SQ BID Novolog Inj (Insulin Aspart) 1,000 Unit/10 Ml Vial 0 SQ DIRECTED Sliding Scale as directed. Review of Systems Except as stated in HPI: all other systems reviewed are Neg Physical Exam Narrative GENERAL: 47yo M in mild distress. SKIN: Focused skin assessment warm/dry. HEAD: Atraumatic. Normocephalic. EYES: Pupils equal and round. No scleral icterus. No injection or drainage. ENT: No nasal bleeding or discharge. Mucous membranes pink and moist. NECK: Trachea midline. No JVD. CARDIOVASCULAR: Regular rate and rhythm. No murmur appreciated. RESPIRATORY: No accessory muscle use. Clear to auscultation. Breath sounds equal bilaterally. GASTROINTESTINAL: Abdomen soft, mild epigastric ttp. No rebound tenderness or guarding. MUSCULOSKELETAL: No obvious deformities. No clubbing. No cyanosis. No edema. NEUROLOGICAL: Awake and alert. No obvious cranial nerve deficits. Motor grossly within normal limits. Normal speech. PSYCHIATRIC: Appropriate mood and affect; insight and judgment normal. Data Data Last Documented VS Vital Signs Date Time Temp Pulse Resp B/P (MAP) Pulse Ox O2 Delivery O2 Flow Rate FiO2 09/04/17 20:12 98.0 112 18 156/83 (107) 100 Room Air Orders Orders Electrocardiogram (09/04/17 18:59) Poultry Feed Supervisor / Telemetry EDMUND.Q8H (09/04/17 18:59) ^ Insert Iv (09/04/17 18:59) Diet Npo (09/04/17 Dinner) Lipase (09/04/17 18:59) Troponin I (09/04/17 18:59) Complete Blood Count With Diff (09/04/17 18:59) Comprehensive Metabolic Panel (09/04/17 18:59) Magnesium (Mg) (09/04/17 18:59) Beta Hydroxybutyrate (Acetone) (09/04/17 18:59) Sodium Chlor 0.9% 1000 Ml Inj (Ns 1000 M (09/04/17 18:59) Urinalysis - C+S If Indicated (09/04/17 18:59) Chest, Single Ap (09/04/17 ) Blood Gas Venous (Vbg) (09/04/17 18:59) Ondansetron Inj (Zofran Inj) (09/04/17 19:30) Blood Gas Venous (Vbg) (09/04/17 19:14) Sodium Chlor 0.9% 1000 Ml Inj (Ns 1000 M (09/04/17 19:59) Dext 5%-Nacl 0.9% 1000 Ml Inj (D5w-Ns 10 (09/04/17 19:59) Insulin Human Regular Inj (Novolin R Inj (09/04/17 20:00) Insulin Regular (Iv Infusion) (Novolin R (09/04/17 20:00) Potassium Chlor 20 Meq Premix (Kcl 20 Me (09/04/17 20:00) Potassium Chlor 20 Meq Premix (Kcl 20 Me (09/04/17 20:00) Potassium Chlor 20 Meq Premix (Kcl 20 Me (09/04/17 20:00) Potassium Chlor 20 Meq Premix (Kcl 20 Me (09/04/17 20:00) Metoclopramide Inj (Reglan Inj) (09/04/17 20:15) Admit Order (Ed Use Only) (09/04/17 20:15) ^ Initiate Protocol (09/04/17 20:15) Instruction (09/04/17 20:15) [facility] Nursing Information (09/04/17 20:15) Chlorhexidine 2% Cloth (Chlorhexidine 2% (09/05/17 04:00) Chlorhexidine 2% Cloth (Chlorhexidine 2% (09/04/17 20:15) Mrsa Pcr Surveillance (09/04/17 20:15) Admit To Inpatient (09/04/17 ) Vital Signs (Adult) Q4H (09/04/17 20:15) Activity Oob Ad Jordyn (09/04/17 20:15) Poultry Feed Supervisor / Telemetry .CONTINUOUS (09/04/17 20:15) Intake + Output EDMUND.QSHIFT (09/04/17 20:15) Sodium Chloride 0.9% Flush (Ns Flush) (09/04/17 20:15) Sodium Chloride 0.9% Flush (Ns Flush) (09/04/17 21:00) Ondansetron Inj (Zofran Inj) (09/04/17 20:15) Scd Bilateral/Knee High EDMUND.BID (09/04/17 20:15) Nazario Bilateral/Knee High EDMUND.QSHIFT (09/04/17 20:16) Acetaminophen (Tylenol) (09/04/17 20:15) Docusate Sodium-Senna (Maggie-Colace) (09/04/17 21:00) Magnesium Hydroxide Liq (Milk Of Magnesi (09/04/17 20:15) Sennosides (Senokot) (09/04/17 20:15) Bisacodyl Supp (Dulcolax Supp) (09/04/17 20:15) Lactulose Liq (Lactulose Liq) (09/04/17 20:15) Inpatient Certification (09/04/17 ) Labs Laboratory Tests Test 09/04/17 19:14 09/04/17 19:20 Blood Gas Puncture Site R ARM Blood Gas Patient Temperature 98.6 Venous Blood pH 7.20 Venous Blood Partial Pressure CO2 25 mmHg Venous Blood Partial Pressure O2 48 mmHg Venous Blood HCO3 10 mmol/L Venous Blood Oxygen Saturation 63 % Venous Blood Oxygen Content 14.0 Vol % Venous Blood Base Excess -16.9 mmol/L White Blood Count 12.1 TH/MM3 Red Blood Count 4.56 MIL/MM3 Hemoglobin 14.7 GM/DL Hematocrit 43.2 % Mean Corpuscular Volume 94.8 FL Mean Corpuscular Hemoglobin 32.2 PG Mean Corpuscular Hemoglobin Concent 34.0 % Red Cell Distribution Width 12.3 % Platelet Count 349 TH/MM3 Mean Platelet Volume 7.9 FL Neutrophils (%) (Auto) 82.7 % Lymphocytes (%) (Auto) 9.2 % Monocytes (%) (Auto) 4.8 % Eosinophils (%) (Auto) 0.5 % Basophils (%) (Auto) 2.8 % Neutrophils # (Auto) 10.0 TH/MM3 Lymphocytes # (Auto) 1.1 TH/MM3 Monocytes # (Auto) 0.6 TH/MM3 Eosinophils # (Auto) 0.1 TH/MM3 Basophils # (Auto) 0.3 TH/MM3 CBC Comment AUTO DIFF Differential Comment AUTO DIFF CONFIRMED Platelet Estimate NORMAL Platelet Morphology Comment NORMAL Red Cell Morphology Comment NORMAL Blood Urea Nitrogen 20 MG/DL Creatinine 1.50 MG/DL Random Glucose 442 MG/DL Total Protein 8.9 GM/DL Albumin 4.5 GM/DL Calcium Level 9.7 MG/DL Magnesium Level 2.1 MG/DL Alkaline Phosphatase 97 U/L Aspartate Amino Transf (AST/SGOT) 22 U/L Alanine Aminotransferase (ALT/SGPT) 39 U/L Total Bilirubin 1.0 MG/DL Sodium Level 129 MEQ/L Potassium Level 4.4 MEQ/L Chloride Level 90 MEQ/L Carbon Dioxide Level 11.1 MEQ/L Anion Gap 28 MEQ/L Estimat Glomerular Filtration Rate 50 ML/MIN Troponin I LESS THAN 0.02 NG/ML Lipase 116 U/L B-Hydroxybutyrate 13.91 MMOL/L MDM Medical Decision Making Medical Screen Exam Complete: Yes Emergency Medical Condition: Yes Interpretation(s) EKG: Sinus tachycardia at 117bpm. LAD. No ST segment elevation or depression. Differential Diagnosis DKA secondary to noncompliance vs. infectious cause vs. gastroparesis vs. UTI Narrative Course 47yo M with insulin dependent diabetes and gastroparesis here with nausea, vomiting and likely DKA again secondary to noncompliance with his insulin. Pt has no primary care physician and said he gets his medication from [facility] and was doing well for a while but did not take his medication again. Pt is tachycardic and appears dry. NS IVF x2 ordered. Labs reviewed, leukocytosis at 12.1. Glucose elevated at 442. CO2 is low at 11.1. Anion gap increased to 28. pH is 7.20. B-hydroxybutyrate elevated at 13.91. Pt started on insulin drip since he is in DKA again and K is 4.4. Will replace potassium as we decrease his anion gap. Pt vomited in the ED and given zofran which helped for a little. He still feels nauseous, will give reglan. Troponin negative. Think burning chest pain is from vomiting and not cardiac. CXR negative. Lipase normal. UA showed ketones, glucose and blood. No leukocyte. Culture not indicated. Discussed with Dr. Rodriguez and accepted to her service. Critical Care Narrative Aggregate critical care time was 50 minutes. Time to perform other separately billable procedures was not included in the critical care time. My time did not include minutes spent treating any other patients simultaneously or on activities that did not directly contribute to the patient's treatment. The services I provided to this patient were to treat and/or prevent clinically significant deterioration that could result in: cardiovascular collapse or . I provided critical care services requiring my management, as noted below: Chart data review, documentation time, medication orders and management, vital sign assessments/reviewing monitor data, ordering and reviewing lab tests, ordering and interpreting/reviewing x-rays and diagnostic studies, care of the patient and discussion of the patient with the admitting physicians. Diagnosis Primary Impression: DKA (diabetic ketoacidoses) Qualified Codes: E10.10 - Type 1 diabetes mellitus with ketoacidosis without coma Admitting Information Admitting Physician Requests: Admit Chio Reese DO Sep 04, 2017 19:02
[2017-09-04 19:24] LABS: BLOOD GAS VENOUS BASE EXCESS -16.9 mmol/L (-2-2); BLOOD GAS VENOUS HCO3 10 mmol/L (22-26); BLOOD GAS VENOUS O2 HGB SAT 63 % (70-76); BLOOD GAS VENOUS PCO2 25 mmHg (44-48); BLOOD GAS VENOUS PO2 48 mmHg (35-40); CRITICAL VALUE YES; STAT YES; TEMP CORR TO 98.6
[2017-09-04 19:25] LABS: DRAW SITE R ARM
[2017-09-04 19:27] LABS: BASOPHIL # 0.3 TH/MM3 (0-0.2); BASOPHIL % 2.8 % (0.0-2.0); EOSINOPHIL # 0.1 TH/MM3 (0-0.4); EOSINOPHIL % 0.5 % (0.0-4.0); HEMATOCRIT 43.2 % (39.0-51.0); LYMPH % 9.2 % (9.0-44.0); LYMPHOCYTE # 1.1 TH/MM3 (1.0-4.8); MEAN CELL VOLUME 94.8 FL (80.0-100.0); MEAN CORPUSCULAR HEMOGLOBIN 32.2 PG (27.0-34.0); MONO % 4.8 % (0.0-8.0); NEUT % 82.7 % (16.0-70.0); PLATELET COUNT 349 TH/MM3 (150-450); RED BLOOD COUNT 4.56 MIL/MM3 (4.50-5.90); RED CELL DISTRIBUTION WIDTH 12.3 % (11.6-17.2); WHITE BLOOD COUNT 12.1 TH/MM3 (4.0-11.0)
[2017-09-04] MEDS: SODIUM CHLOR 0.9% 1000 ML INJ 1,000 ML IV SCH ×4 (19:28→23:59)
[2017-09-04 19:30] LABS: HEMO FLAGS AUTO DIFF
[2017-09-04] MEDS ORDERED: ONDANSETRON HCL 4 MG/2 ML VIAL IV PUSH ONE (19:30)
[2017-09-04 19:35] LABS: CHLORIDE 90 MEQ/L (98-107); POTASSIUM 4.4 MEQ/L (3.5-5.1); SODIUM (NA) 129 MEQ/L (136-145)
[2017-09-04 19:38] LABS: ANION GAP 28 MEQ/L (5-15); BICARBONATE 11.1 MEQ/L (21.0-32.0)
[2017-09-04 19:46] LABS: PLATELET ESTIMATE SMEAR NORMAL (NORMAL); PLATELET MORPHOLOGY NORMAL (NORMAL); SCAN/DIFF AUTO DIFF CONFIRMED
[2017-09-04 19:50] LABS: ALKALINE PHOSPHATASE 97 U/L (45-117); ALT (GPT) 39 U/L (12-78); AST (GOT) 22 U/L (15-37); BLOOD UREA NITROGEN 20 MG/DL (7-18); GLOMERULAR FILTRATION RATE 50 ML/MIN (>89); MAGNESIUM 2.1 MG/DL (1.5-2.5)
[2017-09-04] MEDS ORDERED: POTASSIUM CHLOR 20 MEQ PREMIX 100 ML IV PRN (20:00)
[2017-09-04] MEDS ORDERED: INSULIN HUMAN REGULAR 1,000 UNITS/10 ML VIAL IV PUSH ONE (20:00)
[2017-09-04] MEDS ORDERED: INSULIN REGULAR (IV INFUSION) 100 UNITS in SODIUM CHLORIDE 0.9% INJ 99 ML IV PRN (20:00)
[2017-09-04] MEDS ORDERED: MAGNESIUM HYDROXIDE SUSP 30 ML CUP PO PRN (20:15)
[2017-09-04] MEDS ORDERED: SODIUM CHLORIDE 0.9% FLUSH 10 ML FLUSH IV FLUSH PRN (20:15)
[2017-09-04] MEDS ORDERED: BISACODYL 10 MG SUPP RECTAL PRN (20:15)
[2017-09-04] MEDS ORDERED: LACTULOSE SYRUP 20 GM/30 ML CUP PO PRN (20:15)
[2017-09-04] MEDS ORDERED: SENNOSIDES 8.6 MG TAB PO PRN (20:15)
[2017-09-04] MEDS ORDERED: METOCLOPRAMIDE INJ 10 MG in SODIUM CHLORIDE 0.9% INJ 50 ML IV ONE (20:15)
[2017-09-04] MEDS ORDERED: CHLORHEXIDINE GLUCONATE 2 % 1 PACK (2 CLOTHS) TOP PRN (20:15)
[2017-09-04] MEDS ORDERED: MISCELLANEOUS NURSING INFORMATION XX SCH (20:15)
--- NOTE | 2017-09-04 20:18 | RADRPT ---
EXAM DATE/TIME: 09/04/2017 19:42 [facility] COMPARISON: CHEST SINGLE AP, June 28, 2016, 23:20. INDICATIONS : Short of breath. MEDICAL HISTORY : Renal calculi. Diabetes SURGICAL HISTORY : None. ENCOUNTER: Initial ACUITY: 1 day PAIN SCORE: 0/10 LOCATION: Bilateral chest FINDINGS: A single view of the chest demonstrates the lungs to be symmetrically aerated without evidence of mas s, infiltrate or effusion. The cardiomediastinal contours are unremarkable. Osseous structures are intact. CONCLUSION: No acute disease. Cesar Marc MD on September 04, 2017 at 20:16 Board Certified Radiologist. This report was verified electronically.
[2017-09-04 20:19] LABS: BETA-HYDROXYBUTYRATE 13.91 MMOL/L (0.00-0.39)
[2017-09-04] MEDS: SODIUM CHLORIDE 0.9% FLUSH 10 ML FLUSH IV FLUSH SCH (21:00)
[2017-09-04] MEDS: DOCUSATE SODIUM 50 MG/SENNA 8.6 MG TAB PO SCH (21:00)
[2017-09-04] MEDS: POTASSIUM CHLOR 20 MEQ PREMIX 100 ML IV PRN ×2 (21:08)
[2017-09-04 21:37] LABS: BLOOD, URINE LARGE (NEG); GLUCOSE,URINE 1000 OR GREATER mg/dL (NEG); KETONE, URINE 80 OR GREATER mg/dL (NEG); NITRITE,URINE NEG (NEG); PH, URINE 5.5 (5.0-8.5)
[2017-09-04 21:47] LABS: COMMENT (UR) CULT NOT INDICATED; CULTURE IF INDICATED CULT NOT INDICATED; RBC, URINE 100-200 /hpf (0-3); URINE COLOR YELLOW (YELLW/STRAW); WBC, URINE 0-2 /hpf (0-5)
[2017-09-04] MEDS: DEXT 5%-NACL 0.9% 1000 ML INJ 1,000 ML IV SCH (22:32)
--- NOTE | 2017-09-04 23:02 | EKG ---
Date Performed: 09/04/2017 Time Performed: 19:07:21 PTAGE: 47 years EKG: SINUS TACHYCARDIA PATTERN CONSISTENT WITH PULMONARY DISEASE POSSIBLE RIGHT VENTRICULAR COND UCTION DELAY LEFT ANTERIOR FASCICULAR BLOCK ABNORMAL ECG PREVIOUS TRACING : 02/09/2017 09.07 Compared to the previous tracing rate has increased, and IR BBB is new DOCTOR: Aditya Valentin Interpretating Date/Time 09/04/2017 23:01:00
[2017-09-05] VITALS (24 sets, daily range): BP systolic 109–166; BP diastolic 59–94; PULSE 68–112; RESP 12–36; TEMP 98.2–99.3; O2SAT 98–100
[2017-09-05 00:10] LABS: BICARBONATE 14.3 MEQ/L (21.0-32.0); POTASSIUM 4.2 MEQ/L (3.5-5.1)
[2017-09-05] MEDS: POTASSIUM CHLOR 20 MEQ PREMIX 100 ML IV PRN ×7 (00:51→19:55)
[2017-09-05] MEDS: ONDANSETRON HCL 4 MG/2 ML VIAL IVP PRN ×2 (01:09→19:54)
[2017-09-05] MEDS: DEXT 5%-NACL 0.9% 1000 ML INJ 1,000 ML IV SCH ×4 (01:11→16:50)
[2017-09-05] MEDS: SODIUM CHLOR 0.9% 1000 ML INJ 1,000 ML IV SCH ×5 (03:59→19:53)
[2017-09-05] MEDS: CHLORHEXIDINE GLUCONATE 2 % 1 PACK (2 CLOTHS) TOP SCH (04:00)
[2017-09-05 06:40] LABS: POTASSIUM 4.6 MEQ/L (3.5-5.1)
[2017-09-05 06:43] LABS: BICARBONATE 19.8 MEQ/L (21.0-32.0)
[2017-09-05] MEDS: PROMETHAZINE INJ 25 MG/ML VIAL IM PRN ×2 (08:51→17:53)
[2017-09-05] MEDS: DOCUSATE SODIUM 50 MG/SENNA 8.6 MG TAB PO SCH ×2 (09:00→19:53)
[2017-09-05] MEDS: SODIUM CHLORIDE 0.9% FLUSH 10 ML FLUSH IV FLUSH SCH ×2 (09:00→19:53)
--- NOTE | 2017-09-05 11:11 | HHI.HP ---
HPI Service [facility] Primary Care Physician No Primary Care Physician Admission Diagnosis DKA Diagnoses: (1) DKA (diabetic ketoacidoses) Diagnosis: Principal (2) Polysubstance abuse Diagnosis: Principal (3) Noncompliance with medication regimen Diagnosis: Principal Chief Complaint: Abdominal pain, nausea vomiting Travel History International Travel<30 Days: No Contact w/Intl Traveler <30 Da: No Traveled to Known Affected Are: No History of Present Illness Written by Satrhak Kay, acting as scribe for Dr. Wallace on 09/05/17 at 11:02. 47 year-old male with known history of diabetes, gastroparesis, polysubstance abuse who presented to hospital because of abdominal pain and intractable nausea vomiting. Patient states that he was doing well until Friday night when he was drinking and did 4 lines of cocaine. He missed his dose of insulin that evening and does not indicate that he took any of his insulin after that. He started not feeling well 10 AM yesterday and at 1400 he started having intractable nausea vomiting. He states that he was able to tolerate liquids but not able to eat for at least 2 days. He indicates that he was having abdominal pain but only when he vomited. He states that he knew he was in DKA because of his symptoms so he came to the emergency department for evaluation. Patient had workup done in found to be in diabetic ketoacidosis. The patient was recommended admission for further evaluation and management. Patient states that he usually does use globulin NPH and regular in outpatient setting. He checks his blood sugar only once daily in the morning which is usually between 200-300 which is normal for him. Review of Systems Gastrointestinal: COMPLAINS OF: Abdominal pain, Nausea, Vomiting Except as stated in HPI: all other systems reviewed are Neg Past Family Social History Past Medical History Insulin-dependent diabetes Polysubstance abuse History of gastroparesis History of renal lithiasis Chronic alcohol abuse Anxiety/depression Past Surgical History Patient denies any previous surgeries Reported Medications Reported Meds & Active Scripts Active Reported Novolin 70-30 Inj (Insulin Human Isoph/Insulin Regular) 1,000 Unit/10 Ml Vial 15 Units SQ BID Novolog Inj (Insulin Aspart) 1,000 Unit/10 Ml Vial 0 SQ DIRECTED Sliding Scale as directed. Allergies: Coded Allergies: tramadol (Verified Allergy, Severe, INCREASES BLOOD SUGAR, 09/04/17) aspirin (Verified Allergy, Unknown, Urinary Freq (Inc/Dec), 09/04/17) DIABETIC Family History Reviewed and significant for family history of diabetes, mother having hyperlipidemia and from stroke Social History Patient states he is smoking one half pack a cigarettes a day, prior to that he smoked one pack of cigarettes a day for only 6 years. Patient states he does drink 3 beers daily. Patient does admit to smoking marijuana on a regular basis. He does admit to using cocaine 3 days ago Physical Exam Vital Signs Vital Signs Date Time Temp Pulse Resp B/P (MAP) Pulse Ox O2 Delivery O2 Flow Rate FiO2 09/05/17 10:00 96 09/05/17 08:00 98.3 93 14 148/67 (94) 100 09/05/17 08:00 92 09/05/17 07:00 98 16 154/79 (104) 98 09/05/17 06:00 98 19 125/68 (87) 99 09/05/17 06:00 106 09/05/17 05:00 90 17 113/65 (81) 100 09/05/17 04:00 90 09/05/17 04:00 98.8 93 16 146/79 (101) 99 09/05/17 02:00 100 09/05/17 02:00 100 20 140/87 (104) 99 09/05/17 01:00 112 18 165/88 (113) 99 09/05/17 00:00 99.3 112 29 166/88 (114) 100 09/04/17 23:21 98.4 110 22 134/76 (95) 98 09/04/17 23:15 100 09/04/17 23:04 108 18 148/79 (102) 99 09/04/17 22:10 110 18 159/87 (111) 100 Room Air 09/04/17 21:15 114 20 157/91 (113) 100 Room Air 09/04/17 20:12 98.0 112 18 156/83 (107) 100 Room Air 09/04/17 19:32 108 18 142/83 (102) 100 Room Air 09/04/17 18:45 97.6 118 20 139/81 (100) 100 Physical Exam GENERAL: Well-developed, well-nourished, in no acute distress. alert and orientated HEENT: Head is normocephalic without any lesions or masses noted. Facial features are symmetric. Eyes: Pupils equal round reactive to light. Extraocular muscles are intact. Conjunctivae were clear. Oropharyngeal: Pharynx without any erythema edema. Tongue is midline without deviation. Buccal mucosa is moist without any masses or lesions NECK: Supple without any masses. Trachea midline no deviation. CARDIAC: Regular rhythm, regular rate. S1/S2 are heard. No murmurs gallops or rubs. LUNGS: Clear to auscultation bilaterally. No wheeze, rhonchi or rales. No use of accessory muscles on inspiration or expiration. ABDOMEN: Soft, mild soreness in lower abdomen. Nondistended. Bowel sounds heard in all 4 quadrants. No organomegaly or masses. Negative rebound, negative guarding EXTREMITIES: No edema, pulses are equal bilaterally. No cyanosis or clubbing NEUROLOGY: No facial droop, no slurred speech, no tremors noted Psychiatry: Mood and affect appropriate Laboratory Laboratory Tests Test 09/04/17 19:14 09/04/17 19:20 09/04/17 21:28 09/04/17 23:42 Blood Gas Puncture Site R ARM Blood Gas Patient Temperature 98.6 Venous Blood pH 7.20 Venous Blood Partial Pressure CO2 25 Venous Blood Partial Pressure O2 48 Venous Blood HCO3 10 Venous Blood Oxygen Saturation 63 Venous Blood Oxygen Content 14.0 Venous Blood Base Excess -16.9 White Blood Count 12.1 Red Blood Count 4.56 Hemoglobin 14.7 Hematocrit 43.2 Mean Corpuscular Volume 94.8 Mean Corpuscular Hemoglobin 32.2 Mean Corpuscular Hemoglobin Concent 34.0 Red Cell Distribution Width 12.3 Platelet Count 349 Mean Platelet Volume 7.9 Neutrophils (%) (Auto) 82.7 Lymphocytes (%) (Auto) 9.2 Monocytes (%) (Auto) 4.8 Eosinophils (%) (Auto) 0.5 Basophils (%) (Auto) 2.8 Neutrophils # (Auto) 10.0 Lymphocytes # (Auto) 1.1 Monocytes # (Auto) 0.6 Eosinophils # (Auto) 0.1 Basophils # (Auto) 0.3 CBC Comment AUTO DIFF Differential Comment AUTO DIFF CONFIRMED Platelet Estimate NORMAL Platelet Morphology Comment NORMAL Red Cell Morphology Comment NORMAL Blood Urea Nitrogen 20 19 Creatinine 1.50 1.30 Random Glucose 442 191 Total Protein 8.9 Albumin 4.5 Calcium Level 9.7 8.4 Magnesium Level 2.1 Alkaline Phosphatase 97 Aspartate Amino Transf (AST/SGOT) 22 Alanine Aminotransferase (ALT/SGPT) 39 Total Bilirubin 1.0 Sodium Level 129 137 Potassium Level 4.4 4.2 Chloride Level 90 105 Carbon Dioxide Level 11.1 14.3 Anion Gap 28 18 Estimat Glomerular Filtration Rate 50 59 Troponin I LESS THAN 0.02 Lipase 116 B-Hydroxybutyrate 13.91 Urine Color YELLOW Urine Turbidity SLIGHT Urine pH 5.5 Urine Specific [place] 1.025 Urine Protein TRACE Urine Glucose (UA) 1000 OR GREATER Urine Ketones 80 OR GREATER Urine Occult Blood LARGE Urine Nitrite NEG Urine Bilirubin NEG Urine Leukocyte Esterase NEG Urine RBC 100-200 Urine WBC 0-2 Urine Squamous Epithelial Cells 6-8 Urine Bacteria NONE Microscopic Urinalysis Comment CULT NOT INDICATED Urine Opiates Screen NEG Urine Barbiturates Screen NEG Urine Amphetamines Screen NEG Urine Benzodiazepines Screen NEG Urine Cocaine Screen POS Urine Cannabinoids Screen NEG Nasal Screen MRSA (PCR) MRSA NOT DETECTED Test 09/05/17 06:25 Blood Urea Nitrogen 14 Creatinine 1.20 Random Glucose 180 Calcium Level 8.5 Sodium Level 139 Potassium Level 4.6 Chloride Level 108 Carbon Dioxide Level 19.8 Anion Gap 11 Estimat Glomerular Filtration Rate 65 B-Hydroxybutyrate 4.18 Result Diagram: 09/04/17191909/05/17 0625 Imaging Reported Meds & Active Scripts Active Omeprazole 40 Mg Cap 40 Mg PO DAILY Promethazine (Promethazine HCl) 12.5 Mg Tab 12.5 Mg PO Q6H PRN Lantus Inj (Insulin Glargine) 1,000 Unit/10 Ml Vial 1 Units SQ HS start on 09/08 hs Insulin Syringe/U-100/31G X 03/25" 1 ml 31 Gauge X 03/25" Mis Ea .ROUTE DIRECTED Novolog Inj (Insulin Aspart) 1,000 Unit/10 Ml Vial 1-9 Units SQ ACHS Max dose at bedtime:( )units; sugars less than 70,(0)units; sugars 150-199,(1) unit; sugars 200-249,(3) units; sugars 250-299,(5) units; sugars 300-349,(7) units; sugars greater than 349,(9) units Caprini VTE Risk Assessment Caprini VTE Risk Assessment: Mod/High Risk (score >= 2) Caprini Risk Assessment Model Point Value = 1 Point Value = 2 Point Value = 3 Point Value = 5 Age 41-60 Minor surgery BMI > 25 kg/m2 Swollen legs Varicose veins or History of unexplained or recurrent spontaneous Oral contraceptives or hormone replacement Sepsis (< 1 month) Serious lung disease, including pneumonia (< 1 month) Abnormal pulmonary function Acute myocardial infarction Congestive heart failure (< 1 month) History of inflammatory bowel disease Medical patient at bed rest Age 61-74 Arthroscopic surgery Major open surgery (> 45 min) Laparoscopic surgery (> 45 min) Malignancy Confined to bed (> 72 hours) Immobilizing plaster cast Central venous access Age >= 75 History of VTE Family history of VTE Factor V Leiden Prothrombin [id number] Lupus anticoagulant Anticardiolipin antibodies Elevated serum homocysteine Heparin-induced thrombocytopenia Other congenital or acquired thrombophilia Stroke (< 1 month) Elective arthroplasty Hip, pelvis, or leg fracture Acute spinal cord injury (< 1 month) Prophylaxis Regimen Total Risk Factor Score Risk Level Prophylaxis Regimen 0-1 Low Early ambulation 2 Moderate Order ONE of the following: *Sequential Compression Device (SCD) *Heparin 5000 units SQ BID 3-4 Higher Order ONE of the following medications: *Heparin 5000 units SQ TID *Enoxaparin/Lovenox 40 mg SQ daily (WT < 150 kg, CrCl > 30 mL/min) *Enoxaparin/Lovenox 30 mg SQ daily (WT < 150 kg, CrCl > 10-29 mL/min) *Enoxaparin/Lovenox 30 mg SQ BID (WT < 150 kg, CrCl > 30 mL/min) AND/OR *Sequential Compression Device (SCD) 5 or more Highest Order ONE of the following medications: *Heparin 5000 units SQ TID (Preferred with Epidurals) *Enoxaparin/Lovenox 40 mg SQ daily (WT < 150 kg, CrCl > 30 mL/min) *Enoxaparin/Lovenox 30 mg SQ daily (WT < 150 kg, CrCl > 10-29 mL/min) *Enoxaparin/Lovenox 30 mg SQ BID (WT < 150 kg, CrCl > 30 mL/min) AND *Sequential Compression Device (SCD) Assessment and Plan Assessment and Plan Diabetic ketoacidosis -This is secondary to patient noncompliance with medications, polysubstance abuse -Patient admitted to ICU on insulin drip protocol, sugars down to 100s now, getting KCL as per protocol, will transition to basal dosing likely today. -Patient counseled extensively on medication compliance - CXR independently reviewed by Dr. Wallace shows no acute infectious infiltrative process as the cause Gastroparesis, abdominal pain -Could be secondary to diabetic ketoacidosis versus cyclic vomiting for marijuana use -Zofran, Phenergan as needed for nausea vomiting -Advance diet as tolerated Polysubstance abuse -Patient counseled on cessation DVT prevention -Sequential compression devices EKG independently reviewed by Dr. Wallace shows sinus tachycardia. This note was transcribed by ashley Kay. IJt, personally performed the history, physical exam, and medical decision making; and confirmed the accuracy of information in the transcribed note. Authenticated by Jt Wallace on 09/05/17 at 2:53 PM Physician Certification 2 Midnight Certification Type: Admission for Inpatient Services Order for Inpatient Services The services are ordered in accordance with Medicare regulations or non- Medicare payer requirements, as applicable. In the case of services not specified as inpatient-only, they are appropriately provided as inpatient services in accordance with the 2-midnight benchmark. Estimated LOS (days): 2 days is the estimated time the patient will need to remain in the hospital, assuming treatment plan goals are met and no additional complications. Post-Hospital Plan: Not yet determined Problem Qualifiers (1) DKA (diabetic ketoacidoses): Qualified Codes: E10.10 - Type 1 diabetes mellitus with ketoacidosis without coma Sarthak Kay Sep 05, 2017 11:11 Jt Wallace MD Sep 05, 2017 14:54
[2017-09-05 12:21] LABS: POTASSIUM 4.4 MEQ/L (3.5-5.1)
[2017-09-05 12:25] LABS: BICARBONATE 16.2 MEQ/L (21.0-32.0)
[2017-09-05] MEDS: ACETAMINOPHEN 325 MG TAB PO PRN (17:58)
[2017-09-05 18:38] LABS: BICARBONATE 20.5 MEQ/L (21.0-32.0)
[2017-09-05] MEDS ORDERED: GLUCAGON 1 MG/ML VIAL OTHER PRN (19:30)
[2017-09-05] MEDS ORDERED: DEXTROSE 50% IN WATER 50 ML VIAL(D50) IV PUSH PRN (19:30)
[2017-09-05] MEDS: INSULIN DETEMIR 100 UNITS/ML VIAL SQ SCH (19:53)
[2017-09-05] MEDS: INSULIN NovoLIN REGULAR SUPPLEMENTAL SCALE SQ SCH (21:00)
[2017-09-06] VITALS (30 sets, daily range): BP systolic 110–149; BP diastolic 68–90; PULSE 66–100; RESP 9–40; TEMP 98–99; O2SAT 98–100
[2017-09-06] MEDS: CHLORHEXIDINE GLUCONATE 2 % 1 PACK (2 CLOTHS) TOP SCH (04:00)
[2017-09-06 06:23] LABS: POTASSIUM 3.3 MEQ/L (3.5-5.1)
[2017-09-06 06:26] LABS: BICARBONATE 20.7 MEQ/L (21.0-32.0)
[2017-09-06] MEDS: SODIUM CHLOR 0.9% 1000 ML INJ 1,000 ML IV SCH ×2 (07:25→20:51)
[2017-09-06 07:29] LABS: BETA-HYDROXYBUTYRATE 3.46 MMOL/L (0.00-0.39)
[2017-09-06] MEDS: INSULIN NovoLIN REGULAR SUPPLEMENTAL SCALE SQ SCH ×4 (08:00→20:52)
[2017-09-06] MEDS: INSULIN DETEMIR 100 UNITS/ML VIAL SQ SCH ×2 (08:00→20:52)
[2017-09-06] MEDS ORDERED: INSULIN DETEMIR 100 UNITS/ML VIAL SQ SCH (08:45)
[2017-09-06] MEDS: SODIUM CHLORIDE 0.9% FLUSH 10 ML FLUSH IV FLUSH SCH ×2 (09:00→20:52)
[2017-09-06] MEDS: DOCUSATE SODIUM 50 MG/SENNA 8.6 MG TAB PO SCH ×2 (09:00→20:52)
[2017-09-06] MEDS: SUCRALFATE 1 GM TAB PO SCH ×2 (09:03→15:41)
[2017-09-06] MEDS: FAMOTIDINE 20 MG/2 ML VIAL IV PUSH SCH ×2 (09:04→20:51)
[2017-09-06] MEDS: PROMETHAZINE INJ 25 MG/ML VIAL IM PRN (09:12)
[2017-09-06] MEDS: ACETAMINOPHEN 325 MG TAB PO PRN (10:12)
--- NOTE | 2017-09-06 15:58 | HHI.PR ---
Subjective Remarks RN denies any deterioration since last night. Pt says he feels better. wanting nothing but soups, says some meals are hurting his stomach at times. No N/V. Objective Vital Signs Date Time Temp Pulse Resp B/P (MAP) Pulse Ox O2 Delivery O2 Flow Rate FiO2 09/06/17 15:38 100 16 146/90 (108) 100 09/06/17 14:00 77 16 141/85 (103) 98 09/06/17 13:06 66 09/06/17 13:06 98.4 86 16 122/76 (91) 09/06/17 11:11 98.6 70 16 139/90 (106) 09/06/17 10:00 72 9 09/06/17 09:07 84 28 133/80 (97) 09/06/17 09:01 70 40 145/87 (106) 09/06/17 09:00 74 37 09/06/17 08:00 71 09/06/17 08:00 98.6 71 16 133/80 (97) 98 09/06/17 06:01 70 14 134/81 (98) 09/06/17 06:00 72 13 09/06/17 06:00 71 09/06/17 05:01 78 26 140/78 (98) 09/06/17 05:00 72 14 09/06/17 04:00 98.6 92 26 149/87 (107) 99 09/06/17 04:00 78 09/06/17 03:00 70 19 09/06/17 02:01 82 16 110/72 (85) 09/06/17 02:00 82 15 09/06/17 02:00 81 09/06/17 01:01 74 17 113/69 (84) 09/06/17 01:00 74 15 09/06/17 00:00 75 09/06/17 00:00 98.0 93 20 124/73 (90) 99 09/05/17 23:00 82 17 09/05/17 22:01 68 15 160/76 (104) 09/05/17 22:00 80 09/05/17 22:00 70 14 09/05/17 21:06 78 19 131/67 (88) 09/05/17 21:00 74 16 09/05/17 20:00 98.2 91 36 116/77 (90) 100 09/05/17 20:00 72 09/05/17 18:00 81 09/05/17 18:00 82 09/05/17 18:00 86 16 156/79 (104) 100 09/05/17 17:00 81 12 143/70 (94) 99 09/05/17 16:00 74 09/05/17 16:00 72 09/05/17 16:00 98.5 74 15 126/67 (86) 100 I/O 09/05/17 09/05/17 09/05/17 09/06/17 09/06/17 09/06/17 07:00 15:00 23:00 07:00 15:00 23:00 Intake Total 1076 ml 1428 ml 2122 ml 1253 ml Output Total 950 ml 800 ml 1200 ml 950 ml 600 ml Balance 126 ml 628 ml 922 ml 303 ml -600 ml Intake Oral 0 ml 120 ml 360 ml IV Total 1076 ml 1428 ml 2002 ml 893 ml Output Urine Total 950 ml 800 ml 1200 ml 950 ml 600 ml # Bowel Movements 0 0 0 Result Diagram: 09/04/17 1920 09/06/17 0550 Objective Remarks NAD, lying in bed abd is soft, ND, mildly TTP, alert and oriented A/P Assessment and Plan Diabetic hyperglycemia - This is secondary to patient noncompliance with medications, polysubstance abuse - gap insulin closed, apparently had a low sugar in the 60s this AM after starting PM Levemir 10 units since last night - Patient counseled extensively on medication compliance - AM dose of Levemir held this AM, will try lower dose today Gastroparesis, abdominal pain -improved -Zofran, Phenergan as needed for nausea vomiting -Advance diet as tolerated, starting Carafate today Polysubstance abuse -Patient counseled on cessation DVT prevention -Sequential compression devices. Early ambulation. Will keep in-house tonight. Jt Wallace MD Sep 06, 2017 15:58
[2017-09-07] VITALS (26 sets, daily range): BP systolic 118–139; BP diastolic 65–86; PULSE 60–94; RESP 5–41; TEMP 97–98.7; O2SAT 96–99
[2017-09-07] MEDS: CHLORHEXIDINE GLUCONATE 2 % 1 PACK (2 CLOTHS) TOP SCH (00:14)
[2017-09-07] MEDS: SUCRALFATE 1 GM TAB PO SCH (05:46)
[2017-09-07] MEDS: SODIUM CHLOR 0.9% 1000 ML INJ 1,000 ML IV SCH (07:15)
[2017-09-07] MEDS: INSULIN NovoLIN REGULAR SUPPLEMENTAL SCALE SQ SCH (08:00)
[2017-09-07] MEDS: SODIUM CHLORIDE 0.9% FLUSH 10 ML FLUSH IV FLUSH SCH (08:41)
[2017-09-07] MEDS: DOCUSATE SODIUM 50 MG/SENNA 8.6 MG TAB PO SCH (08:41)
[2017-09-07] MEDS: INSULIN DETEMIR 100 UNITS/ML VIAL SQ SCH (09:00)
[2017-09-07] MEDS: FAMOTIDINE 20 MG/2 ML VIAL IV PUSH SCH (09:00)
[2017-09-07] MEDS ORDERED: NOVOLOGP2 SQ (10:30)
--- NOTE | 2017-09-07 10:32 | HHI.DCPOC ---
Discharge Care Plan Diagnosis: (1) DKA (diabetic ketoacidoses) (2) Type 1 diabetes mellitus on insulin therapy Additional Problems Do not take your Lantus until the night of September 08. Do not take any of her sliding scale for the remainder of today September 07 unless your sugars are greater than 250. See a regular doctor as soon as possible this week so that he can be titrated appropriately on her Lantus and short-acting insulin of NovoLog R. Goals to Promote Your Health * To prevent worsening of your condition and complications * To maintain your health at the optimal level Directions to Meet Your Goals Take your medications as prescribed Follow your dietary instruction Follow activity as directed Keep your appointments as scheduled Take your immunizations and boosters as scheduled If your symptoms worsen call your PCP, if no PCP go to Urgent Care Center or Emergency Room Smoking is Dangerous to Your Health. Avoid second hand smoke Call the 24-hour hour crisis hotline for domestic abuse at Jt Wallace MD Sep 07, 2017 10:32
[2017-09-07] MEDS ORDERED: LANTUS2P SQ (10:36)
[2017-09-07] MEDS ORDERED: PROM12.54 PO (10:36)
[2017-09-07] MEDS ORDERED: INSU1MIS15 (10:36)
[2017-09-07] MEDS ORDERED: OMEP40CA2 PO (10:38)
--- NOTE | 2017-09-07 11:20 | HHI.DS ---
Discharge Summary Admission Date Sep 04, 2017 at 20:16 Discharge Date: Sep 07, 2017 Admitting Diagnosis DKA (1) DKA (diabetic ketoacidoses) ICD Code: E13.10 - Diabetic ketoacidosis Diagnosis: Principal Status: Resolved (2) Polysubstance abuse ICD Code: F19.10 - Other psychoactive substance abuse, uncomplicated Diagnosis: Principal Status: Acute (3) Noncompliance with medication regimen ICD Code: Z91.14 - Patient's other noncompliance with medication regimen Diagnosis: Principal Procedures none Brief History - From Admission Written by Sarthak Kay, acting as scribe for Dr. Wallace on 09/05/17 at 11:02. 47 year-old male with known history of diabetes, gastroparesis, polysubstance abuse who presented to hospital because of abdominal pain and intractable nausea vomiting. Patient states that he was doing well until Friday night when he was drinking and did 4 lines of cocaine. He missed his dose of insulin that evening and does not indicate that he took any of his insulin after that. He started not feeling well 10 AM yesterday and at 1400 he started having intractable nausea vomiting. He states that he was able to tolerate liquids but not able to eat for at least 2 days. He indicates that he was having abdominal pain but only when he vomited. He states that he knew he was in DKA because of his symptoms so he came to the emergency department for evaluation. Patient had workup done in found to be in diabetic ketoacidosis. The patient was recommended admission for further evaluation and management. Patient states that he usually does use globulin NPH and regular in outpatient setting. He checks his blood sugar only once daily in the morning which is usually between 200-300 which is normal for him. CBC/BMP: 09/04/17 1920 09/06/17 0550 Significant Findings Laboratory Tests Test 09/04/17 19:14 09/04/17 19:20 09/04/17 21:28 09/04/17 23:42 Venous Blood pH 7.20 (7.360-7.400) Venous Blood Partial Pressure CO2 25 mmHg (44-48) Venous Blood Partial Pressure O2 48 mmHg (35-40) Venous Blood HCO3 10 mmol/L (22-26) Venous Blood Oxygen Saturation 63 % (70-76) Venous Blood Base Excess -16.9 mmol/L (-2-2) White Blood Count 12.1 TH/MM3 (4.0-11.0) Neutrophils (%) (Auto) 82.7 % (16.0-70.0) Basophils (%) (Auto) 2.8 % (0.0-2.0) Neutrophils # (Auto) 10.0 TH/MM3 (1.8-7.7) Basophils # (Auto) 0.3 TH/MM3 (0-0.2) Blood Urea Nitrogen 20 MG/DL (7-18) 19 MG/DL (7-18) Creatinine 1.50 MG/DL (0.60-1.30) Random Glucose 442 MG/DL (74-106) 191 MG/DL (74-106) Total Protein 8.9 GM/DL (6.4-8.2) Sodium Level 129 MEQ/L (136-145) Chloride Level 90 MEQ/L (98-107) Carbon Dioxide Level 11.1 MEQ/L (21.0-32.0) 14.3 MEQ/L (21.0-32.0) Anion Gap 28 MEQ/L (5-15) 18 MEQ/L (5-15) Estimat Glomerular Filtration Rate 50 ML/MIN (>89) 59 ML/MIN (>89) Troponin I LESS THAN 0.02 NG/ML B-Hydroxybutyrate 13.91 MMOL/L (0.00-0.39) Urine Glucose (UA) 1000 OR GREATER mg/dL Urine Ketones 80 OR GREATER mg/dL (NEG) Urine Occult Blood LARGE (NEG) Urine RBC 100-200 /hpf (0-3) Urine Squamous Epithelial Cells 6-8 /hpf (0-5) Urine Cocaine Screen POS (NEG) Calcium Level 8.4 MG/DL (8.5-10.1) Test 09/05/17 06:25 09/05/17 12:02 09/05/17 18:15 09/06/17 05:50 Random Glucose 180 MG/DL (74-106) 194 MG/DL (74-106) 201 MG/DL (74-106) 62 MG/DL (74-106) Chloride Level 108 MEQ/L (98-107) 110 MEQ/L (98-107) 108 MEQ/L (98-107) 109 MEQ/L (98-107) Carbon Dioxide Level 19.8 MEQ/L (21.0-32.0) 16.2 MEQ/L (21.0-32.0) 20.5 MEQ/L (21.0-32.0) 20.7 MEQ/L (21.0-32.0) Estimat Glomerular Filtration Rate 65 ML/MIN (>89) 65 ML/MIN (>89) 71 ML/MIN (>89) B-Hydroxybutyrate 4.18 MMOL/L (0.00-0.39) 3.46 MMOL/L (0.00-0.39) Calcium Level 8.3 MG/DL (8.5-10.1) 7.9 MG/DL (8.5-10.1) 8.1 MG/DL (8.5-10.1) Potassium Level 3.3 MEQ/L (3.5-5.1) Hospital Course Patient was admitted and started on IV insulin infusion. Within the first 24 hours he was transitioned to subcutaneous insulin. By the next day his insulin was adjusted due to some hypoglycemia due to erratic by mouth intake. By the last day of discharge the patient's sugars were stabilized in the 100s. He was counseled extensively on starting holding off on administering any insulin based off of his sliding scale for the remainder of 09/07 unless his sugars reached greater than 250 given he had received 5 units of Levemir on the a.m. of 09/07 . He was also informed to start Lantus on the night of 09/08 given that he has been very high insulin sensitivity. He was also informed that he will be downgraded from a high dose to a low-dose sliding scale. And he was also counseled to follow up with her primary care provider to ultimately fine- tune his Lantus titration and his mealtime insulin dosing as well. Patient has met maximum benefit from hospitalization and is clinically stable for discharge. Pt Condition on Discharge: Stable Discharge Disposition: Discharge Home Discharge Time: > 30 minutes Discharge Instructions DIET: Follow Instructions for: Diabetic Diet Activities you can perform: See Additionl Instruction Other Activity Instructions: If feeling lightheaded, avoid from working at heights or driving or operating heavy machinery until symptom free for at least 24 hrs. Follow up Referrals: PCP Follow-up - 3-5 Days New Medications: Insulin Aspart Inj (Novolog Inj) 1,000 Unit/10 Ml Vial 1-9 UNITS SQ ACHS for Blood Sugar Management, #10 ML 0 Refills Max dose at bedtime:( )units; sugars less than 70,(0)units; sugars 150-199,(1) unit; sugars 200-249,(3) units; sugars 250-299,(5) units; sugars 300-349,(7) units; sugars greater than 349,(9) units Insulin Glargine Inj (Lantus Inj) 1,000 Unit/10 Ml Vial 1 UNITS SQ HS for Blood Sugar Management, #1000 VIAL 1 Refill start on 09/08 hs Insulin Syringe/U-100/31G X 5/16" 1 ml (Insulin Syringe/U-100/31G X 5/16" 1 ml) 31 Gauge X 5/16" Mis EA .ROUTE DIRECTED for Blood Sugar Management, #30 0 Refills Omeprazole (Omeprazole) 40 Mg Cap 40 MG PO DAILY for acid reflux, #30 CAP 0 Refills Promethazine (Promethazine) 12.5 Mg Tab 12.5 MG PO Q6H PRN for NAUSEA OR VOMITING, #20 TAB 0 Refills Discontinued Medications: Insulin Aspart Inj (Novolog Inj) 1,000 Unit/10 Ml Vial 0 SQ DIRECTED for Blood Sugar Management, #10 ML 0 Refills Sliding Scale as directed. Insulin Human Isophane-Regular 70-30 Inj (Novolin 70-30 Inj) 1,000 Unit/10 Ml Vial 15 UNITS SQ BID for Blood Sugar Management, ML 0 Refills Jt Wallace MD Sep 07, 2017 11:20
[2017-09-07] MEDS ORDERED: POTASSIUM CHLORIDE 10 MEQ CONTROLLED RELEASE TAB PO ONE (12:00)
== END 2017-09-07 13:30 | disposition home or self-care (01) | DRG 639 ==
LOC: PHED 18:39 → PHEDA 20:16 → PHICU 23:12
PROVIDERS: ADMIT Hospitalist; ATTEND Hospitalist
DX: E10.10 Type 1 diabetes mellitus with ketoacidosis without coma (principal); E10.649 Type 1 diabetes mellitus with hypoglycemia without coma; K31.84 Gastroparesis; E10.43 Type 1 diabetes mellitus with diabetic autonomic (poly)neuropathy; F32.9 Major depressive disorder, single episode, unspecified; F41.9 Anxiety disorder, unspecified; F17.210 Nicotine dependence, cigarettes, uncomplicated; R00.0 Tachycardia, unspecified; D72.829 Elevated white blood cell count, unspecified; F14.10 Cocaine abuse, uncomplicated; F12.10 Cannabis abuse, uncomplicated; Z79.4 Long term (current) use of insulin; Z91.14 Patient's other noncompliance with medication regimen; Z87.442 Personal history of urinary calculi
CPT/HCPCS: 71010; 80048; 80053; 80307; 81001; 82010; 82805; 82948; 83690; 83735; 84484; 85025; 87641; 93005; 96361; 96374; 96375; J1815; J1817; J2405; J2550; J2765; J3480; J7030; J7042

== ENCOUNTER 2018-03-10 22:42 | Inpatient (IN) | payer OTHER ==
[~2018-03-10] VITALS: Ht 172.7 cm; Wt 60.0 kg
[~2018-03-10 22:42] MED LIST changes: +INSU1MIS15; +LANTUS2P SQ; -NOVO7030P2 SQ; +OMEP40CA2 PO; +PROM12.54 PO; -PROT40TA PO
[2018-03-10 22:53] VITALS: BP 112/62; PULSE 111; RESP 12; TEMP 98.6; O2SAT 98
[2018-03-10] MEDS ORDERED: DEXTROSE 50% IN WATER 50 ML SYRINGE ONE (23:01)
[2018-03-10 23:13] VITALS: BP 105/67; PULSE 95; RESP 20; O2SAT 95
[2018-03-10] MEDS ORDERED: THIAMINE INJ 100 MG in SODIUM CHLORIDE 0.9% INJ 100 ML IV ONE (23:15)
[2018-03-10] MEDS ORDERED: DEXTROSE 50% IN WATER 50 ML VIAL(D50) IV PUSH ONE (23:15)
--- NOTE | 2018-03-10 23:22 | PD ---
HPI Chief Complaint: Suicide Ideation/Attempt Time Seen by Provider: 23:10 Travel History International Travel<30 days: No Contact w/Intl Traveler<30days: No Traveled to known affect area: No History of Present Illness HPI The patient is a 48 year old male who presents to the [facility] emergency department with a history of being placed under a Molina act prior to arrival. The Molina act states that the patient was on a bridge attempting to jump when the police were called. The patient on arrival to this facility has extremely slurred speech with a decreased level of consciousness, frequently falling asleep when attempting to answer questions. The patient has a known history of diabetes. The patient reports that he has been drinking alcohol today. The patient's blood sugar was checked on arrival and found to be 39. IV access was obtained in this patient and he was given an amp of D50. The patient became more awake and alert was able to provide his history. He reports that he has been drinking vodka today. He reports that he was depressed because his mother is dying. He reports that his mother is currently on hospice. Limited history is able to be obtained from this patient who is intoxicated. The patient's other history is obtained from reviewing the electronic medical record. [facility] Past Medical History Narrative Medical The patient's past medical history is significant for diabetes mellitus with recurrent admissions for DKA, gastroparesis, psychiatric disorder, alcohol abuse , history of hepatitis C. Hx Anticoagulant Therapy: No Arthritis: No Asthma: No Autoimmune Disease: No Blood Disorders: Yes Anxiety: Yes Depression: No Heart Rhythm Problems: No Cancer: No Cardiovascular Problems: No High Cholesterol: No Chemotherapy: No Chest Pain: No Congestive Heart Failure: No COPD: No Cerebrovascular Accident: No Diabetes: Yes Diminished Hearing: No Endocrine: Yes Gastrointestinal Disorders: Yes (GASTROPARESIS) GERD: No Genitourinary: No Headaches: No Hiatal Hernia: No Hypertension: No Immune Disorder: No Implanted Vascular Access Dvce: No Kidney Stones: Yes Musculoskeletal: No Neurologic: No Psychiatric: Yes Reproductive: No Respiratory: No Immunizations Current: Yes Migraines: No Radiation Therapy: No Renal Failure: No Seizures: No Sickle Cell Disease: No Sleep Apnea: No Thyroid Disease: No Ulcer: No Past Surgical History Surgical History: Unable to Obtain Abdominal Surgery: No AICD: No Arteriovenous Shunt: No Cardiac Surgery: No Ear Surgery: No Endocrine Surgery: No Eye Surgery: No Genitourinary Surgery: No Gynecologic Surgery: No Hysterectomy: No Insulin Pump: No Joint Replacement: No Neurologic Surgery: No Oral Surgery: No Pacemaker: No Thoracic Surgery: No Other Surgery: No Social History Alcohol Use: Yes (SOCIALLY) Tobacco Use: Yes Substance Use: Yes (MARIJUANA, COCAINE) Allergies-Medications (Allergen,Severity, Reaction): Coded Allergies: tramadol (Verified Allergy, Severe, INCREASES BLOOD SUGAR, 09/04/17) aspirin (Verified Allergy, Unknown, Urinary Freq (Inc/Dec), 09/04/17) DIABETIC Reported Meds & Prescriptions Reported Meds & Active Scripts Active Omeprazole 40 Mg Cap 40 Mg PO DAILY Promethazine (Promethazine HCl) 12.5 Mg Tab 12.5 Mg PO Q6H PRN Lantus Inj (Insulin Glargine) 1,000 Unit/10 Ml Vial 1 Units SQ HS start on 09/08 hs Insulin Syringe/U-100/31G X 5/16" 1 ml 31 Gauge X 5/16" Mis Ea .ROUTE DIRECTED Novolog Inj (Insulin Aspart) 1,000 Unit/10 Ml Vial 1-9 Units SQ ACHS Max dose at bedtime:( )units; sugars less than 70,(0)units; sugars 150-199,(1) unit; sugars 200-249,(3) units; sugars 250-299,(5) units; sugars 300-349,(7) units; sugars greater than 349,(9) units Review of Systems ROS Limitations: Poor Historian Neurologic: Positive: Weakness (Generalized weakness), Change in Mentation, Slurred Speech, No: Focal Abnormalities, Sensory Disturbance Psychiatric: Positive: Depression, Suicidal Ideations, Mood Disorder, Substance Abuse Physical Exam Narrative General: The patient is a well-developed well-nourished male, drowsy on initial arrival with slurred speech and an odor of alcohol about him. Head and Neck exam: Head is normocephalic atraumatic. Eyes: EOMI, pupils are equal round and reactive to light. Nose: Midline septum with pink mucous membranes Mouth: Dentition unremarkable. Dry mucus membranes. Posterior oropharynx is not erythematous. No tonsillar hypertrophy. Uvula midline. Airway patent. Neck: No palpable lymphadenopathy. No nuchal rigidity. No thyromegaly. No spinous process tenderness to palpation. No step-off or crepitus. No erythema or ecchymosis. Cardiovascular: Regular rate and rhythm without murmurs, gallops, or rubs. No pulse deficit to the extremities on simultaneous auscultation and palpation of his radial artery. Lungs: Clear to auscultation bilaterally. No wheezes, rhonchi, or rales. Abdomen: Soft, without tenderness to palpation in all 4 quadrants of the abdomen. No guarding, rebound, or rigidity. Normal bowel sounds are audible. No tenderness on palpation of McBurney's point. Extremities: No clubbing, cyanosis, or edema. 2+ pulses in all 4 extremities. No extremity pain on palpation. No deformity noted. The patient has full range of motion of all extremities. No erythema or ecchymosis. Back: No spinous process tenderness to palpation. No costovertebral angle tenderness to palpation. Neurologic Exam: The patient is noted to have slurred speech with an odor of alcohol about him. The patient was initially drowsy on examination, requiring frequent awakenings to answer questions. The patient has normal strength in all extremities on exam. The patient was noted to have a blood sugar of 39. When the patient was given an amp of D50. The patient became more awake and alert and was able to provide his history. Skin Exam: No rash noted. Intact skin that is warm and dry. Data Data Last Documented VS Vital Signs Date Time Temp Pulse Resp B/P (MAP) Pulse Ox O2 Delivery O2 Flow Rate FiO2 03/11/18 00:30 90 20 106/64 (78) 96 Room Air 03/10/18 22:53 98.6 Orders Orders Psych Screen (03/10/18 22:57) Dextrose 50% In Nico (Syr) Inj (D50w (Syr (03/10/18 23:01) Electrocardiogram (03/10/18 23:10) Complete Blood Count With Diff (03/10/18 23:10) Comprehensive Metabolic Panel (03/10/18 23:10) Prothrombin Time / Inr (Pt) (03/10/18 23:10) Act Partial Throm Time (Ptt) (03/10/18 23:10) Lipase (03/10/18 23:10) Urinalysis - C+S If Indicated (03/10/18 23:10) Magnesium (Mg) (03/10/18 23:10) Chest, Single Ap (03/10/18 23:10) Ct Brain W/O Iv Contrast(Rout) (03/10/18 23:10) Iv Access Insert/Monitor (03/10/18 23:10) Ecg Monitoring (03/10/18 23:10) Oximetry (03/10/18 23:10) Drug Screen, Random Urine (03/10/18 23:10) Alcohol (Ethanol) (03/10/18 23:10) Salicylates (Aspirin) (03/10/18 23:10) Tylenol (Acetaminophen) (03/10/18 23:10) Dextrose 50% In Nico (Vial) Inj (D50w (Vi (03/10/18 23:15) Thiamine Inj (Thiamine Inj) (03/10/18 23:15) Diet As Tolerated (03/10/18 23:13) Sodium Chlorid 0.9% 500 Ml Inj (Ns 500 M (03/10/18 23:30) Dext 5%-Nacl 0.45% 1000 Ml Inj (D5w-/ (03/11/18 01:00) Blood Glucose (03/11/18 01:15) Dextrose 50% In Nico (Syr) Inj (D50w (Syr (03/11/18 01:30) Admit Order (Ed Use Only) (03/11/18 01:30) Labs Laboratory Tests Test 03/10/18 22:54 03/10/18 23:34 Prothrombin Time 12.2 SEC Prothromb Time International Ratio 1.2 RATIO Activated Partial Thromboplast Time 28.9 SEC White Blood Count 10.7 TH/MM3 Red Blood Count 4.35 MIL/MM3 Hemoglobin 14.6 GM/DL Hematocrit 42.0 % Mean Corpuscular Volume 96.6 FL Mean Corpuscular Hemoglobin 33.6 PG Mean Corpuscular Hemoglobin Concent 34.8 % Red Cell Distribution Width 12.3 % Platelet Count 364 TH/MM3 Mean Platelet Volume 8.3 FL Neutrophils (%) (Auto) 38.8 % Lymphocytes (%) (Auto) 46.8 % Monocytes (%) (Auto) 8.8 % Eosinophils (%) (Auto) 4.4 % Basophils (%) (Auto) 1.2 % Neutrophils # (Auto) 4.2 TH/MM3 Lymphocytes # (Auto) 5.0 TH/MM3 Monocytes # (Auto) 0.9 TH/MM3 Eosinophils # (Auto) 0.5 TH/MM3 Basophils # (Auto) 0.1 TH/MM3 CBC Comment DIFF FINAL Differential Comment Blood Urea Nitrogen 17 MG/DL Creatinine 1.26 MG/DL Random Glucose 29 MG/DL Total Protein 7.8 GM/DL Albumin 4.0 GM/DL Calcium Level 9.7 MG/DL Magnesium Level 2.0 MG/DL Alkaline Phosphatase 59 U/L Aspartate Amino Transf (AST/SGOT) 30 U/L Alanine Aminotransferase (ALT/SGPT) 31 U/L Total Bilirubin 0.3 MG/DL Sodium Level 142 MEQ/L Potassium Level 3.2 MEQ/L Chloride Level 105 MEQ/L Carbon Dioxide Level 25.9 MEQ/L Anion Gap 11 MEQ/L Estimat Glomerular Filtration Rate 61 ML/MIN Lipase 92 U/L Salicylates Level 1.9 MG/DL Acetaminophen Level LESS THAN 2.0 MCG/ML Ethyl Alcohol Level 247 MG/DL MDM Medical Decision Making Medical Screen Exam Complete: Yes Emergency Medical Condition: Yes Medical Record Reviewed: Yes Differential Diagnosis Altered mentation differential includes hypoglycemic, versus Wernicke-Korsakoff syndrome, versus alcohol intoxication, versus intracranial abnormality Differential diagnosis for suicidal ideations includes depression, versus substance-induced mood disorder, versus grief reaction Narrative Course During the course of the patient's emergency department visit, the patient's history, examination, and differential diagnosis were reviewed with the patient. The patient was placed on a teletypesetter monitor with oximetry and frequent blood pressure monitoring. The patient had IV access obtained and blood work sent for analysis. The patient's Molina act was reviewed. The patient was initially provided an amp of D50. The patient became more awake and alert and his blood sugar was then noted to be 259. The patient will be provided pain and butter crackers to sustain his blood sugar. Patient was given thiamine 100 mg IV. The patient will be given normal saline IV fluids. The patient's laboratory studies were reviewed and remarkable for 03/10/18 23:34 Total Protein 7.8, Albumin 4.0, Calcium Level 9.7, Magnesium Level 2.0, Alkaline Phosphatase 59, Aspartate Amino Transf (AST/SGOT) 30, Alanine Aminotransferase (ALT/SGPT) 31, Total Bilirubin 0.3. These laboratory studies were done when the patient was in the processes of initial evaluation prior to his first amp of D50. Lipase is 92. PT PTT are unremarkable, alcohol level 247, acetaminophen less than 2, salicylate 1.9. When the patient was more awake and alert, the patient reported to be that he last gave himself insulin at 9 PM. He reports that he administered 8 units of NPH. The patient was reexamined and the patient's blood sugar began to drop again. The patient's blood sugar was in the 50s. The patient was started on a D5 drip as the patient is intoxicated and having difficulty following commands to drink orange juice and eat his peanut butter and crackers. The patient dropped down to 49. The patient was given a half amp of D50. Radiology studies were reviewed and remarkable for Last Impressions Head CT 03/10/182309 Signed Impressions: Service Date/Time: Saturday, March 10, 2018 23:57 - CONCLUSION: 1. Minimal periventricular small vessel ischemic demyelination predominantly around the frontal horns of the lateral ventricles. 2. No acute Kirk Herron MD Chest X-Ray 03/10/182309 Signed Impressions: Service Date/Time: Saturday, March 10, 2018 23:18 - CONCLUSION: 1. Probable skin fold projecting over the right upper hemithorax. 2. Otherwise, lungs are clear. Heart size is normal Kirk Herron MD Due to the patient's persistent hypoglycemia and alcohol intoxication making it difficult to direct him to increase his p.o. intake, the patient will be admitted to the medical service on a D5 drip. The patient is under a Molina act. The sitter will be placed at the bedside. The patient's results were discussed with the patient, including the plan of care. I explained that further testing and/ or monitoring is indicated based on the patient's history, examination, and/ or laboratory findings. Therefore, I recommended admission for additional evaluation. The patient expressed understanding and was agreeable with this plan. The patient was admitted to the hospital in guarded condition and [facility] Physician Communication Physician Communication The patient's case including history, pertinent physical examination findings, and laboratory studies were discussed with Dr. Munoz. It was agreed that the [facility] would [facility]. Diagnosis Primary Impression: Hypoglycemia Additional Impressions: Depression with suicidal ideation Alcohol intoxication Qualified Codes: F10.929 - Alcohol use, unspecified with intoxication, unspecified Admitting Information Admitting Physician Requests: Observation Desirae Howard MD March 10, 2018 23:22
[2018-03-10 23:30] VITALS: BP 107/73; PULSE 92; RESP 20; O2SAT 95
[2018-03-10] MEDS ORDERED: SODIUM CHLORID 0.9% 500 ML INJ 500 ML IV ONE (23:30)
--- NOTE | 2018-03-10 23:33 | RADRPT ---
EXAM DATE/TIME: 03/10/2018 23:18 [facility] COMPARISON: CHEST SINGLE AP, September 04, 2017, 19:42. INDICATIONS : Altered mental status. MEDICAL HISTORY : Diabetes. SURGICAL HISTORY : None. ENCOUNTER: Initial ACUITY: 1 day PAIN SCORE: 0/10 LOCATION: Bilateral chest FINDINGS: A single view of the chest demonstrates a curvilinear density in the right lung apex I believe repres ents a skinfold as pulmonary markings extend above the density. Lungs otherwise clear. Heart size is normal. Osseous structures are intact. CONCLUSION: 1. Probable skin fold projecting over the right upper hemithorax. 2. Otherwise, lungs are clear. Heart size is normal Kirk Herron MD on March 10, 2018 at 23:30 Board Certified Radiologist. This report was verified electronically.
[2018-03-11] VITALS (9 sets, daily range): BP systolic 99–134; BP diastolic 61–88; PULSE 80–95; RESP 16–20; TEMP 97.7–98.7; O2SAT 95–98
--- NOTE | 2018-03-11 00:08 | RADRPT ---
EXAM DATE/TIME: 03/10/2018 23:57 [facility] COMPARISON: No previous studies available for comparison. INDICATIONS : Altered mental status. RADIATION DOSE: 56.35 CTDIvol (mGy) MEDICAL HISTORY : Diabetes mellitus type 2. Drug use. SURGICAL HISTORY : None. ENCOUNTER: Initial ACUITY: 1 day PAIN SCALE: Non-responsive LOCATION: cranial TECHNIQUE: Multiple contiguous axial images were obtained of the head. Using automated exposure control and adj ustment of the mA and/or kV according to patient size, radiation dose was kept as low as reasonably a chievable to obtain optimal diagnostic quality images. DICOM format image data is available electro nically for review and comparison. FINDINGS: CEREBRUM: The ventricles are normal for age. Minimal periventricular small vessel ischemic demyelination per d ilator and the frontal horns of the lateral ventricles. No evidence of midline shift, mass lesion, he morrhage or acute infarction. No extra-axial fluid collections are seen. POSTERIOR FOSSA: The cerebellum and brainstem are intact. The 4th ventricle is midline. The cerebellopontine angle i s unremarkable. EXTRACRANIAL: The visualized portion of the orbits is intact. SKULL: The calvaria is intact. No evidence of skull fracture. CONCLUSION: 1. Minimal periventricular small vessel ischemic demyelination predominantly around the frontal horns of the lateral ventricles. 2. No acute Kirk Herron MD on March 11, 2018 at 0:05 Board Certified Radiologist. This report was verified electronically.
[2018-03-11 00:21] LABS: AUTOMATED NEUTROPHIL # 4.2 TH/MM3 (1.8-7.7); BASOPHIL # 0.1 TH/MM3 (0-0.2); BASOPHIL % 1.2 % (0.0-2.0); EOSINOPHIL # 0.5 TH/MM3 (0-0.4); EOSINOPHIL % 4.4 % (0.0-4.0); HEMOGLOBIN 14.6 GM/DL (13.0-17.0); LYMPH % 46.8 % (9.0-44.0); MEAN CELL VOLUME 96.6 FL (80.0-100.0); MEAN CORPUSCULAR HEMOGLOBIN 33.6 PG (27.0-34.0); MEAN CORPUSCULAR HGB CONC 34.8 % (32.0-36.0); MEAN PLATELET VOLUME 8.3 FL (7.0-11.0); MONO % 8.8 % (0.0-8.0); MONOCYTE # 0.9 TH/MM3 (0-0.9); NEUT % 38.8 % (16.0-70.0); PLATELET COUNT 364 TH/MM3 (150-450); RED BLOOD COUNT 4.35 MIL/MM3 (4.50-5.90); RED CELL DISTRIBUTION WIDTH 12.3 % (11.6-17.2); WHITE BLOOD COUNT 10.7 TH/MM3 (4.0-11.0)
[2018-03-11 00:27] LABS: INTERNATIONAL NORMALIZED RATIO 1.2 RATIO; PROTHROMBIN TIME - PATIENT 12.2 SEC (9.8-11.6)
[2018-03-11 00:49] LABS: ACETAMINOPHEN LESS THAN 2.0 MCG/ML (10.0-30.0); ALKALINE PHOSPHATASE 59 U/L (45-117); ALT (GPT) 31 U/L (12-78); AST (GOT) 30 U/L (15-37); BICARBONATE 25.9 MEQ/L (21.0-32.0); BLOOD UREA NITROGEN 17 MG/DL (7-18); CALCIUM 9.7 MG/DL (8.5-10.1); CHLORIDE 105 MEQ/L (98-107); CREATININE 1.26 MG/DL (0.60-1.30); GLOMERULAR FILTRATION RATE 61 ML/MIN (>89); SODIUM (NA) 142 MEQ/L (136-145); TOTAL BILIRUBIN ADULT 0.3 MG/DL (0.2-1.0); TOTAL PROTEIN 7.8 GM/DL (6.4-8.2)
[2018-03-11 00:51] LABS: GLUCOSE,RANDOM 29 MG/DL (74-106)
[2018-03-11] MEDS ORDERED: DEXT 5%-NACL 0.45% 1000 ML INJ 1,000 ML IV SCH (01:00)
[2018-03-11] MEDS ORDERED: DEXTROSE 50% IN WATER 50 ML SYRINGE IV PUSH ONE (01:30)
--- NOTE | 2018-03-11 03:59 | HHI.HP ---
HPI Service [facility] Primary Care Physician No Primary Care Physician Admission Diagnosis Persistent hypoglycemia, Molina Act Diagnoses: Travel History International Travel<30 Days: No Contact w/Intl Traveler <30 Da: No Traveled to Known Affected Are: No History of Present Illness 48-year-old male with a past medical history significant for type 1 diabetes mellitus presents to the emergency department under Molina act after reportedly attempting to jump off of the double bridge. During my interview with the patient he states that he tried to kill himself because a friend killed himself approximately 1 week ago. He also states he was feeling very ill as and as if he was going to having bloody emesis and blood in his right ear. Patient's mother approximately 4 years ago of unknown causes. The patient denies any current suicidal/homicidal ideation. He is intoxicated with a blood alcohol level of 247. He denies any chest pain or shortness of breath. No abdominal pain. No recent hematemesis. No nausea/vomiting/diarrhea. No increased weakness. No lateralizing signs/symptoms. No fevers/chills. Review of Systems Except as stated in HPI: all other systems reviewed are Neg Past Family Social History Past Medical History Type 1 diabetes mellitus Polysubstance abuse Past Surgical History None Reported Medications Reported Meds & Active Scripts Active Lantus Inj (Insulin Glargine) 1,000 Unit/10 Ml Vial 1 Units SQ HS start on 09/08 hs Insulin Syringe/U-100/31G X 03/25" 1 ml 31 Gauge X 03/25" Mis Ea .ROUTE DIRECTED Novolog Inj (Insulin Aspart) 1,000 Unit/10 Ml Vial 1-9 Units SQ ACHS Max dose at bedtime:( )units; sugars less than 70,(0)units; sugars 150-199,(1) unit; sugars 200-249,(3) units; sugars 250-299,(5) units; sugars 300-349,(7) units; sugars greater than 349,(9) units Allergies: Coded Allergies: tramadol (Verified Allergy, Severe, INCREASES BLOOD SUGAR, 03/11/18) aspirin (Verified Allergy, Unknown, Urinary Freq (Inc/Dec), 03/11/18) DIABETIC Family History Maternal grandmother with diabetes mellitus Social History Positive for tobacco, daily alcohol use, marijuana and cocaine use (last use on Friday) Physical Exam Vital Signs Vital Signs Date Time Temp Pulse Resp B/P (MAP) Pulse Ox O2 Delivery O2 Flow Rate FiO2 03/11/18 02:30 80 20 103/69 (80) 98 Room Air 03/11/18 01:30 84 20 108/61 (77) 97 Room Air 03/11/18 00:30 90 20 106/64 (78) 96 Room Air 03/10/18 23:30 92 20 107/73 (84) 95 Room Air 03/10/18 23:13 95 20 105/67 (80) 95 Room Air 03/10/18 22:53 98.6 111 12 112/62 (79) 98 Physical Exam GENERAL: Thin, male lying in bed SKIN: No rashes, ecchymoses or lesions. Cool and dry. HEAD: Atraumatic. Normocephalic. No temporal or scalp tenderness. EYES: Pupils equal round and reactive. Extraocular motions intact. No scleral icterus. No injection or drainage. ENT: Nose without bleeding, purulent drainage or septal hematoma. Throat without erythema, tonsillar hypertrophy or exudate. Uvula midline. Airway patent. NECK: Trachea midline. No JVD or lymphadenopathy. Supple, nontender, no meningeal signs. CARDIOVASCULAR: Regular rate and rhythm without murmurs, gallops, or rubs. RESPIRATORY: Clear to auscultation. Breath sounds equal bilaterally. No wheezes , rales, or rhonchi. GASTROINTESTINAL: Abdomen soft, non-tender, nondistended. No hepato-splenomegaly , or palpable masses. No guarding. MUSCULOSKELETAL: Extremities without clubbing, cyanosis, or edema. No joint tenderness, effusion, or edema noted. No calf tenderness. NEUROLOGICAL: Awake and alert. Cranial nerves II through XII intact. Motor and sensory grossly within normal limits. Normal speech. Laboratory Laboratory Tests Test 03/10/18 22:54 03/10/18 23:34 Prothrombin Time 12.2 Prothromb Time International Ratio 1.2 Activated Partial Thromboplast Time 28.9 White Blood Count 10.7 Red Blood Count 4.35 Hemoglobin 14.6 Hematocrit 42.0 Mean Corpuscular Volume 96.6 Mean Corpuscular Hemoglobin 33.6 Mean Corpuscular Hemoglobin Concent 34.8 Red Cell Distribution Width 12.3 Platelet Count 364 Mean Platelet Volume 8.3 Neutrophils (%) (Auto) 38.8 Lymphocytes (%) (Auto) 46.8 Monocytes (%) (Auto) 8.8 Eosinophils (%) (Auto) 4.4 Basophils (%) (Auto) 1.2 Neutrophils # (Auto) 4.2 Lymphocytes # (Auto) 5.0 Monocytes # (Auto) 0.9 Eosinophils # (Auto) 0.5 Basophils # (Auto) 0.1 CBC Comment DIFF FINAL Differential Comment Blood Urea Nitrogen 17 Creatinine 1.26 Random Glucose 29 Total Protein 7.8 Albumin 4.0 Calcium Level 9.7 Magnesium Level 2.0 Alkaline Phosphatase 59 Aspartate Amino Transf (AST/SGOT) 30 Alanine Aminotransferase (ALT/SGPT) 31 Total Bilirubin 0.3 Sodium Level 142 Potassium Level 3.2 Chloride Level 105 Carbon Dioxide Level 25.9 Anion Gap 11 Estimat Glomerular Filtration Rate 61 Lipase 92 Salicylates Level 1.9 Acetaminophen Level LESS THAN 2.0 Ethyl Alcohol Level 247 Result Diagram: 03/10/18 2334 03/10/18 2334 Caprini VTE Risk Assessment Caprini VTE Risk Assessment: No/Low Risk (score <= 1) Caprini Risk Assessment Model Point Value = 1 Point Value = 2 Point Value = 3 Point Value = 5 Age 41-60 Minor surgery BMI > 25 kg/m2 Swollen legs Varicose veins or History of unexplained or recurrent spontaneous Oral contraceptives or hormone replacement Sepsis (< 1 month) Serious lung disease, including pneumonia (< 1 month) Abnormal pulmonary function Acute myocardial infarction Congestive heart failure (< 1 month) History of inflammatory bowel disease Medical patient at bed rest Age 61-74 Arthroscopic surgery Major open surgery (> 45 min) Laparoscopic surgery (> 45 min) Malignancy Confined to bed (> 72 hours) Immobilizing plaster cast Central venous access Age >= 75 History of VTE Family history of VTE Factor V Leiden Prothrombin [id number] Lupus anticoagulant Anticardiolipin antibodies Elevated serum homocysteine Heparin-induced thrombocytopenia Other congenital or acquired thrombophilia Stroke (< 1 month) Elective arthroplasty Hip, pelvis, or leg fracture Acute spinal cord injury (< 1 month) Prophylaxis Regimen Total Risk Factor Score Risk Level Prophylaxis Regimen 0-1 Low Early ambulation 2 Moderate Order ONE of the following: *Sequential Compression Device (SCD) *Heparin 5000 units SQ BID 3-4 Higher Order ONE of the following medications: *Heparin 5000 units SQ TID *Enoxaparin/Lovenox 40 mg SQ daily (WT < 150 kg, CrCl > 30 mL/min) *Enoxaparin/Lovenox 30 mg SQ daily (WT < 150 kg, CrCl > 10-29 mL/min) *Enoxaparin/Lovenox 30 mg SQ BID (WT < 150 kg, CrCl > 30 mL/min) AND/OR *Sequential Compression Device (SCD) 5 or more Highest Order ONE of the following medications: *Heparin 5000 units SQ TID (Preferred with Epidurals) *Enoxaparin/Lovenox 40 mg SQ daily (WT < 150 kg, CrCl > 30 mL/min) *Enoxaparin/Lovenox 30 mg SQ daily (WT < 150 kg, CrCl > 10-29 mL/min) *Enoxaparin/Lovenox 30 mg SQ BID (WT < 150 kg, CrCl > 30 mL/min) AND *Sequential Compression Device (SCD) Assessment and Plan Assessment and Plan Assessment/plan: 1. Hypoglycemia Blood sugar 29 on arrival to the emergency depart Patient not taking much p.o. secondary to acute alcohol intoxication D5 1/2 NS Monitor blood glucose 2. Suicidal ideation Patient attempted to jump off and on the bridge Molina act in place Psychiatry consulted, appreciate recommendations 3. Diabetes mellitus Patient unable to tell me when he last took his insulin. States he has been out of his medication for "a while." Sliding-scale insulin Monitor blood glucose 4. Hypokalemia Status post p.o. repletion Monitor BMP 5. Acute alcohol intoxication/alcohol abuse Thiamine/folate/multivitamins [facility] protocol Monitor for signs of withdrawal FEN Diabetic diet D5 1/4 NS at 42 cc/hour Electrolytes: As above Physician Certification 2 Midnight Certification Type: Admission for Inpatient Services Order for Inpatient Services The services are ordered in accordance with Medicare regulations or non- Medicare payer requirements, as applicable. In the case of services not specified as inpatient-only, they are appropriately provided as inpatient services in accordance with the 2-midnight benchmark. Estimated LOS (days): 2 2 days is the estimated time the patient will need to remain in the hospital, assuming treatment plan goals are met and no additional complications. Post-Hospital Plan: Not yet determined Lata Munoz MD March 11, 2018 03:58
[2018-03-11] MEDS ORDERED: POTASSIUM CHLORIDE 25 MEQ EFFERVESCENT TAB PO ONE (04:00)
[2018-03-11] MEDS ORDERED: BISACODYL 10 MG SUPP RECTAL PRN (04:00)
[2018-03-11] MEDS ORDERED: NALOXONE HCL 0.4 MG/ML AMP IV PUSH PRN (04:00)
[2018-03-11] MEDS ORDERED: LACTULOSE SYRUP 20 GM/30 ML CUP PO PRN (04:00)
[2018-03-11] MEDS ORDERED: DEXTROSE 50% IN WATER 50 ML VIAL(D50) IV PUSH PRN (04:00)
[2018-03-11] MEDS ORDERED: ONDANSETRON HCL 4 MG/2 ML VIAL IVP PRN (04:00)
[2018-03-11] MEDS ORDERED: MAGNESIUM HYDROXIDE SUSP 30 ML CUP PO PRN (04:00)
[2018-03-11] MEDS ORDERED: SODIUM CHLORIDE 0.9% FLUSH 10 ML FLUSH IV FLUSH PRN (04:00)
[2018-03-11] MEDS ORDERED: ACETAMINOPHEN 325 MG TAB PO PRN (04:00)
[2018-03-11] MEDS ORDERED: SENNOSIDES 8.6 MG TAB PO PRN (04:00)
[2018-03-11] MEDS ORDERED: GLUCAGON 1 MG/ML VIAL OTHER PRN (04:00)
[2018-03-11] MEDS: INSULIN ASPART SUPPLEMENTAL SCALE SQ SCH ×4 (08:00→21:00)
--- NOTE | 2018-03-11 08:57 | EKG ---
Date Performed: 03/11/2018 Time Performed: 02:04:14 PTAGE: 48 years EKG: Sinus rhythm LEFT ANTERIOR FASCICULAR BLOCK ABNORMAL ECG PREVIOUS TRACING : 09/04/2017 19.07 Since the previous tracing, no significant change noted DOCTOR: Domenico Howard Interpretating Date/Time 03/11/2018 08:51:37
[2018-03-11] MEDS: SODIUM CHLORIDE 0.9% FLUSH 10 ML FLUSH IV FLUSH SCH ×2 (09:00→21:14)
[2018-03-11] MEDS: DOCUSATE SODIUM 50 MG/SENNA 8.6 MG TAB PO SCH ×2 (09:00→21:14)
--- NOTE | 2018-03-11 11:26 | PD.PSY.CON ---
Provisional Diagnosis Admission Date March 11, 2018 at 03:51 Webster I. Adjustment disorder with depressed mood vs MDD, r/o substance-induced mood disorder, polysubstance dependence including cocaine, cannabis, alcohol Webster II. Unspecified personality disorder, r/o antisocial Webster III. Diabetes, hypertension, polyneuropathy History of Present Illness Service Psychiatry Consult Requested By ER Reason for Consult Suicidal attempt Primary Care Physician No Primary Care Physician HPI The patient is a 48-year-old man, homeless, unemployed, single, with psychiatric history of depression, anxiety, polysubstance dependence including benzodiazepines, cocaine, alcohol, cannabis, he has not previous admissions, he denies suicidal attempts, with a past medical history significant for type 1 diabetes mellitus, hypertension, neuropathy, presents to the emergency department under Molina act after reportedly attempting to jump [place] of the double bridge in the context of alcohol intoxication. Initial BAL was 247. On psychiatric evaluation the patient he states that he tried to kill himself because a friend killed himself approximately 1 week ago and he has been feeling depressed. He also reports that he is done with his homelessness, unemployment and also with his multiple medical illnesses. He says that he has no money or medical insurance to treat his problems. The patient reports that he has been feeling hopeless, helpless and desperate. Patient also reports that he has no family, no friends, no reasons to live for. Patient has been drinking alcohol in a binge for the last week. He also reports the use of cocaine, cannabis and Xanax sometimes. Patient has not being in psychiatric treatment for several months now. He is to be a patient of Dr. Raymundo used to be in Xanax prescribed. At this moment the patient has suicidal thoughts, no plan, denies homicidal ideation, denies visual and auditory hallucinations. The patient is under observation due to Hypoglycemia Blood sugar 29 on arrival. He is fully oriented 3, no attention deficit, no fluctuation of consciousness. No agitation, no aggressive behavior present. Review of Systems Constitutional: DENIES: Diaphoretic episodes, Fatigue, Fever, Weight gain, Weight loss, Chills, Dizziness, Change in appetite, Night Sweats Endocrine: DENIES: Heat/cold intolerance, Polydipsia, Polyuria, Polyphagia Eyes: DENIES: Blurred vision, Diplopia, Eye inflammation, Eye pain, Vision loss , Photosensitivity, Double Vision Ears, nose, mouth, throat: DENIES: Tinnitus, Hearing loss, Vertigo, Nasal discharge, Oral lesions, Throat pain, Hoarseness, Ear Pain, Running Nose, Epistaxis, Sinus Pain, Toothache, Odynophagia Respiratory: DENIES: Apneas, Cough, Snoring, Wheezing, Hemoptysis, Sputum production, Shortness of breath Cardiovascular: DENIES: Chest pain, Palpitations, Syncope, Dyspnea on Exertion , PND, Lower Extremity Edema, Orthopnea, Claudication Gastrointestinal: DENIES: Abdominal pain, Black stools, Bloody stools, Constipation, Diarrhea, Nausea, Vomiting, Difficulty Swallowing, Anorexia Genitourinary: DENIES: Sexual dysfunction, Urinary frequency, Urinary incontinence, Urgency, Hematuria, Dysuria, Nocturia, Penile Discharge, Testicular Pain, Testicular Swelling Musculoskeletal: DENIES: Joint pain, Muscle aches, Stiffness, Joint Swelling, Back pain, Neck pain Integumentary: DENIES: Abnormal pigmentation, Nail changes, Pruritus, Rash Hematologic/lymphatic: DENIES: Bruising, Lymphadenopathy Immunologic/allergic: DENIES: Eczema, Urticaria Neurologic: DENIES: Abnormal gait, Headache, Localized weakness, Paresthesias, Seizures, Speech Problems, Tremor, Poor Balance Psychiatric: COMPLAINS OF: Depression, Suicidal Ideation, DENIES: Anxiety, Confusion, Mood changes, Hallucinations, Homicidal Ideation, Delusions Past Family Social History Coded Allergies: tramadol (Verified Allergy, Severe, INCREASES BLOOD SUGAR, 03/11/18) aspirin (Verified Allergy, Unknown, Urinary Freq (Inc/Dec), 03/11/18) DIABETIC Active Scripts Insulin Glargine Inj (Lantus Inj) 1,000 Unit/10 Ml Vial, 1 UNITS SQ HS for Blood Sugar Management, #1000 VIAL 1 Refill start on 09/08 hs Prov:Jt Wallace MD 09/07/17 Insulin Syringe/U-100/31G X 516" 1 ml (Insulin Syringe/U-100/31G X 16" 1 ml) 31 Gauge X 16" Mis, EA .ROUTE DIRECTED for Blood Sugar Management, #30 0 Refills Prov:Jt Wallace MD 09/07/17 Insulin Aspart Inj (Novolog Inj) 1,000 Unit/10 Ml Vial, 1-9 UNITS SQ ACHS for Blood Sugar Management, #10 ML 0 Refills Max dose at bedtime:( )units; sugars less than 70,(0)units; sugars 150-199,(1) unit; sugars 200-249,(3) units; sugars 250-299,(5) units; sugars 300-349,(7) units; sugars greater than 349,(9) units Prov:Jt Wallace MD 09/07/17 Discontinued Scripts Omeprazole (Omeprazole) 40 Mg Cap, 40 MG PO DAILY for acid reflux, #30 CAP 0 Refills Prov:Jt Wallace MD 09/07/17 Promethazine (Promethazine) 12.5 Mg Tab, 12.5 MG PO Q6H Y for NAUSEA OR VOMITING , #20 TAB 0 Refills Prov:Jt Wallace MD 09/07/17 Current Medications Medications (Trade) Dose Ordered Sig/Padma Route Start Time Stop Time Status Last Admin Dextrose/Sodium Chloride 1,000 ml @ 42 mls/hr [id number] IV 03/11/18 01:00 03/11/18 01:05 (NS Flush) 2 ml UNSCH PRN IV FLUSH 03/11/18 04:00 (NS Flush) 2 ml BID IV FLUSH 03/11/18 09:00 03/11/18 09:00 (Tylenol) 650 mg Q4H PRN PO 03/11/18 04:00 (Zofran Inj) 4 mg Q6H PRN IVP 03/11/18 04:00 (Narcan Inj) 0.4 mg UNSCH PRN IV PUSH 03/11/18 04:00 (Maggie-Colace) 1 tab BID PO 03/11/18 09:00 (Milk Of Magnesia Liq) 30 ml Q12H PRN PO 03/11/18 04:00 (Senokot) 17.2 mg Q12H PRN PO 03/11/18 04:00 (Dulcolax Supp) 10 mg DAILY PRN RECTAL 03/11/18 04:00 (Lactulose Liq) 30 ml DAILY PRN PO 03/11/18 04:00 (D50w (Vial) Inj) 50 ml UNSCH PRN IV PUSH 03/11/18 04:00 (Glucagon Inj) 1 mg UNSCH PRN OTHER 03/11/18 04:00 (NovoLOG SUPPLEMENTAL SCALE) 1 ACHS SLIDING SCALE SQ 03/11/18 08:00 03/11/18 08:00 Family Psych History Mother and sister have bipolar Social History Patient was born and raised in [place], he is homeless in the [facility], unemployed, single, his highest level of education is ninth grade Patient's Strengths (min. 2) Verbal communication Physical Exam No tremors, no EPS, no withdrawal symptoms at the moment Vital Signs Vital Signs Date Time Temp Pulse Resp B/P (MAP) Pulse Ox O2 Delivery O2 Flow Rate FiO2 03/11/18 08:21 98.7 89 18 121/80 (94) 97 03/11/18 02:30 Room Air I/O 03/11/18 03/11/18 03/12/18 08:00 16:00 00:00 Intake Total 601 ml Balance 601 ml Lab Results Test 03/10/18 22:54 03/10/18 23:34 Prothrombin Time 12.2 SEC Prothromb Time International Ratio 1.2 RATIO Activated Partial Thromboplast Time 28.9 SEC White Blood Count 10.7 TH/MM3 Red Blood Count 4.35 MIL/MM3 Hemoglobin 14.6 GM/DL Hematocrit 42.0 % Mean Corpuscular Volume 96.6 FL Mean Corpuscular Hemoglobin 33.6 PG Mean Corpuscular Hemoglobin Concent 34.8 % Red Cell Distribution Width 12.3 % Platelet Count 364 TH/MM3 Mean Platelet Volume 8.3 FL Neutrophils (%) (Auto) 38.8 % Lymphocytes (%) (Auto) 46.8 % Monocytes (%) (Auto) 8.8 % Eosinophils (%) (Auto) 4.4 % Basophils (%) (Auto) 1.2 % Neutrophils # (Auto) 4.2 TH/MM3 Lymphocytes # (Auto) 5.0 TH/MM3 Monocytes # (Auto) 0.9 TH/MM3 Eosinophils # (Auto) 0.5 TH/MM3 Basophils # (Auto) 0.1 TH/MM3 CBC Comment DIFF FINAL Differential Comment Blood Urea Nitrogen 17 MG/DL Creatinine 1.26 MG/DL Random Glucose 29 MG/DL Total Protein 7.8 GM/DL Albumin 4.0 GM/DL Calcium Level 9.7 MG/DL Magnesium Level 2.0 MG/DL Alkaline Phosphatase 59 U/L Aspartate Amino Transf (AST/SGOT) 30 U/L Alanine Aminotransferase (ALT/SGPT) 31 U/L Total Bilirubin 0.3 MG/DL Sodium Level 142 MEQ/L Potassium Level 3.2 MEQ/L Chloride Level 105 MEQ/L Carbon Dioxide Level 25.9 MEQ/L Anion Gap 11 MEQ/L Estimat Glomerular Filtration Rate 61 ML/MIN Lipase 92 U/L Salicylates Level 1.9 MG/DL Acetaminophen Level LESS THAN 2.0 MCG/ML Ethyl Alcohol Level 247 MG/DL Mental Status Examination Appearance: Appropriate Consciousness: Alert Orientation: x4 Motor Activity: Normal gait Speech: Unremarkable Language: Adequate Fund of Knowledge: Adequate Attention and Concentration: Adequate Memory: Unremarkable Mood: Sad, Irritable Affect: Irritable Thought Process & Associations: Intact Thought Content: Appropriate Hallucination Type: None Delusion Type: None Suicidal Ideation: Yes Suicidal Plan: Yes Suicidal Intention: No Homicidal Ideation: No Homicidal Plan: No Homicidal Intention: No Insight: Poor Judgment: Poor Assessment & Plan Problem List: (1) Adjustment disorder with depressed mood ICD Codes: F43.21 - Adjustment disorder with depressed mood Assessment & Plan: Psychiatric evaluation today I find a patient that is calm, cooperative, he looks objectively depressed. The patient reports that he has been feeling desperate, hopeless, helpless and abandoned especially in the last week since his best friend . The patient reports that since then he has been in a binge of alcohol, also using cocaine and cannabis. Patient reports that he has no recent to live for, he endorses lack of purpose and he does not care to kill himself. Yesterday he felt he could not take it anymore he was ready to jump off a bridge. He does not contract for safety at the moment, he endorses suicidal thoughts, he does not have an active plan. Patient benefits of hospitalization for treatment of dual diagnosis of depression and polysubstance dependence. Continue CIWA protocol. I will leave the Molina act in place, once patient is medically cleared transferred to [facility] to put the patient is [facility] list. Support, motivation and psychoeducation provided. Assessment & Plan Estimated LOS: Rhys Prasad MD March 11, 2018 11:26
--- NOTE | 2018-03-11 12:50 | HHI.PR ---
Subjective Remarks Follow-up hypoglycemia/suicidal attempt March 11, 2018-patient seen and examined, blood glucose trending up and patient denies any symptoms of nausea and vomiting. Denies any palpitation. Patient states, irregularities act of wanting to harm himself however denies any homicidal ideation. Vital stable. Appreciate input from psychiatry. Objective Vitals Vital Signs Date Time Temp Pulse Resp B/P (MAP) Pulse Ox O2 Delivery O2 Flow Rate FiO2 03/11/18 08:21 98.7 89 18 121/80 (94) 97 03/11/18 04:32 88 17 99/67 (78) 97 03/11/18 02:30 80 20 103/69 (80) 98 Room Air 03/11/18 01:30 84 20 108/61 (77) 97 Room Air 03/11/18 00:30 90 20 106/64 (78) 96 Room Air 03/10/18 23:30 92 20 107/73 (84) 95 Room Air 03/10/18 23:13 95 20 105/67 (80) 95 Room Air 03/10/18 22:53 98.6 111 12 112/62 (79) 98 I/O 03/10/18 03/10/18 03/10/18 03/11/18 03/11/18 03/11/18 07:00 15:00 23:00 07:00 15:00 23:00 Intake Total 601 ml Balance 601 ml IV Total 601 ml Result Diagram: 03/10/18 2334 03/10/18 2334 Imaging Last Impressions Head CT 03/10/180 Signed Impressions: Service Date/Time: Saturday, March 10, 2018 23:57 - CONCLUSION: 1. Minimal periventricular small vessel ischemic demyelination predominantly around the frontal horns of the lateral ventricles. 2. No acute Kirk Herron MD Chest X-Ray 03/10/180 Signed Impressions: Service Date/Time: Saturday, March 10, 2018 23:18 - CONCLUSION: 1. Probable skin fold projecting over the right upper hemithorax. 2. Otherwise, lungs are clear. Heart size is normal Kirk Herron MD Objective Remarks GENERAL: NAD SKIN: Warm and dry. HEAD: Normocephalic. EYES: No scleral icterus. No injection or drainage. NECK: Supple, trachea midline. No JVD or lymphadenopathy. CARDIOVASCULAR: Regular rate and rhythm without murmurs, gallops, or rubs. RESPIRATORY: Breath sounds equal bilaterally. No accessory muscle use. GASTROINTESTINAL: Abdomen soft, non-tender, nondistended. MUSCULOSKELETAL: No cyanosis, or edema. BACK: Nontender without obvious deformity. No CVA tenderness. A/P Assessment and Plan 1. Hypoglycemia Resolved Discontinue D5 1/2 NS and hypoglycemia protocol Monitor blood glucose 2. Suicidal ideation Appreciate input from psychiatry, transferred to J POD when patient is medically stable Continue Molina act 3. Diabetes mellitus Resume basal insulin Continue with sliding-scale insulin Monitor blood glucose 4. Hypokalemia Status post p.o. repletion Monitor BMP 5. Acute alcohol intoxication/alcohol abuse Thiamine/folate/multivitamins [facility] protocol Monitor for signs of withdrawal Aston Leonard MD March 11, 2018 12:50
[2018-03-11] MEDS ORDERED: INSULIN DETEMIR 100 UNITS/ML VIAL SQ SCH (21:00)
[2018-03-12 00:01] VITALS: BP 114/75; PULSE 87; RESP 16; TEMP 98.3; O2SAT 99
[2018-03-12] MEDS: DOCUSATE SODIUM 50 MG/SENNA 8.6 MG TAB PO SCH (07:50)
[2018-03-12] MEDS: SODIUM CHLORIDE 0.9% FLUSH 10 ML FLUSH IV FLUSH SCH (07:50)
[2018-03-12 08:00] VITALS: BP 119/82; PULSE 85; RESP 18; TEMP 97.8; O2SAT 95
[2018-03-12] MEDS: INSULIN ASPART SUPPLEMENTAL SCALE SQ SCH ×2 (08:34→12:16)
[2018-03-12 08:36] LABS: AUTOMATED NEUTROPHIL # 3.4 TH/MM3 (1.8-7.7); BASOPHIL # 0.1 TH/MM3 (0-0.2); BASOPHIL % 0.9 % (0.0-2.0); EOSINOPHIL # 0.3 TH/MM3 (0-0.4); EOSINOPHIL % 4.1 % (0.0-4.0); HEMATOCRIT 43.6 % (39.0-51.0); HEMOGLOBIN 14.9 GM/DL (13.0-17.0); LYMPH % 31.2 % (9.0-44.0); MEAN CELL VOLUME 97.8 FL (80.0-100.0); MEAN CORPUSCULAR HEMOGLOBIN 33.4 PG (27.0-34.0); MEAN CORPUSCULAR HGB CONC 34.1 % (32.0-36.0); MEAN PLATELET VOLUME 8.1 FL (7.0-11.0); MONO % 9.6 % (0.0-8.0); MONOCYTE # 0.6 TH/MM3 (0-0.9); NEUT % 54.2 % (16.0-70.0); PLATELET COUNT 297 TH/MM3 (150-450); RED BLOOD COUNT 4.46 MIL/MM3 (4.50-5.90); RED CELL DISTRIBUTION WIDTH 12.6 % (11.6-17.2); WHITE BLOOD COUNT 6.4 TH/MM3 (4.0-11.0)
[2018-03-12] MEDS ORDERED: THIAMINE HCL 100 MG TAB PO SCH (09:00)
[2018-03-12 09:10] LABS: BICARBONATE 29.8 MEQ/L (21.0-32.0); CALCIUM 9.3 MG/DL (8.5-10.1); CREATININE 1.06 MG/DL (0.60-1.30)
--- NOTE | 2018-03-12 11:22 | HHI.PYPN ---
Subjective Remarks Patient was seen today for psychiatric reevaluation. Patient was calm, cooperative, pleasant. Patient reports that he feels much better today. Patient states that he must be very drunk when he endorsed suicidal ideation. He reports that he is in a very good mood now, ready to be discharged, to go back to his job and to his regular life. The patient denies suicidal and was ideation, he denies visual and auditory hallucinations. He denies depressive symptoms, denies anxiety, denies psychosis. He is fully oriented 3, logical, coherent and relevant. Review of Systems Constitutional: DENIES: Diaphoretic episodes, Fatigue, Fever, Weight gain, Weight loss, Chills, Dizziness, Change in appetite, Night Sweats Endocrine: DENIES: Heat/cold intolerance, Polydipsia, Polyuria, Polyphagia Eyes: DENIES: Blurred vision, Diplopia, Eye inflammation, Eye pain, Vision loss , Photosensitivity, Double Vision Ears, nose, mouth, throat: DENIES: Tinnitus, Hearing loss, Vertigo, Nasal discharge, Oral lesions, Throat pain, Hoarseness, Ear Pain, Running Nose, Epistaxis, Sinus Pain, Toothache, Odynophagia Respiratory: DENIES: Apneas, Cough, Snoring, Wheezing, Hemoptysis, Sputum production, Shortness of breath Cardiovascular: DENIES: Chest pain, Palpitations, Syncope, Dyspnea on Exertion , PND, Lower Extremity Edema, Orthopnea, Claudication Gastrointestinal: DENIES: Abdominal pain, Black stools, Bloody stools, Constipation, Diarrhea, Nausea, Vomiting, Difficulty Swallowing, Anorexia Genitourinary: DENIES: Sexual dysfunction, Urinary frequency, Urinary incontinence, Urgency, Hematuria, Dysuria, Nocturia, Penile Discharge, Testicular Pain, Testicular Swelling Musculoskeletal: DENIES: Joint pain, Muscle aches, Stiffness, Joint Swelling, Back pain, Neck pain Integumentary: DENIES: Abnormal pigmentation, Nail changes, Pruritus, Rash Hematologic/lymphatic: DENIES: Bruising, Lymphadenopathy Immunologic/allergic: DENIES: Eczema, Urticaria Neurologic: DENIES: Abnormal gait, Headache, Localized weakness, Paresthesias, Seizures, Speech Problems, Tremor, Poor Balance Psychiatric: DENIES: Anxiety, Confusion, Mood changes, Depression, Hallucinations, Agitation, Suicidal Ideation, Homicidal Ideation, Delusions Mental Status Examination Appearance: Appropriate Consciousness: Alert Orientation: x4 Motor Activity: Normal gait Speech: Unremarkable Language: Adequate Fund of Knowledge: Adequate Attention and Concentration: Adequate Memory: Unremarkable Mood: Appropriate, Irritable Affect: Appropriate, Irritable Thought Process & Associations: Intact Thought Content: Appropriate Hallucination Type: None Delusion Type: None Suicidal Ideation: No Suicidal Plan: No Suicidal Intention: No Homicidal Ideation: No Homicidal Plan: No Homicidal Intention: No Insight: Fair Judgment: Impulsive Results Labs Test 03/12/18 08:03 White Blood Count 6.4 TH/MM3 Red Blood Count 4.46 MIL/MM3 Hemoglobin 14.9 GM/DL Hematocrit 43.6 % Mean Corpuscular Volume 97.8 FL Mean Corpuscular Hemoglobin 33.4 PG Mean Corpuscular Hemoglobin Concent 34.1 % Red Cell Distribution Width 12.6 % Platelet Count 297 TH/MM3 Mean Platelet Volume 8.1 FL Neutrophils (%) (Auto) 54.2 % Lymphocytes (%) (Auto) 31.2 % Monocytes (%) (Auto) 9.6 % Eosinophils (%) (Auto) 4.1 % Basophils (%) (Auto) 0.9 % Neutrophils # (Auto) 3.4 TH/MM3 Lymphocytes # (Auto) 2.0 TH/MM3 Monocytes # (Auto) 0.6 TH/MM3 Eosinophils # (Auto) 0.3 TH/MM3 Basophils # (Auto) 0.1 TH/MM3 CBC Comment DIFF FINAL Differential Comment Blood Urea Nitrogen 16 MG/DL Creatinine 1.06 MG/DL Random Glucose 168 MG/DL Calcium Level 9.3 MG/DL Sodium Level 138 MEQ/L Potassium Level 4.1 MEQ/L Chloride Level 103 MEQ/L Carbon Dioxide Level 29.8 MEQ/L Anion Gap 5 MEQ/L Estimat Glomerular Filtration Rate 74 ML/MIN Vitals/IOs Vital Signs Date Time Temp Pulse Resp B/P (MAP) Pulse Ox O2 Delivery O2 Flow Rate FiO2 03/12/18 08:00 97.8 85 18 119/82 (94) 95 03/11/18 21:42 Room Air Intake and Output 03/12/18 03/12/18 03/13/18 08:00 16:00 00:00 Intake Total 120 ml Balance 120 ml Assessment & Plan Problem List: (1) Adjustment disorder with depressed mood ICD Codes: F43.21 - Adjustment disorder with depressed mood Assessment & Plan: On psychiatric evaluation today the patient is in a good mood, and a good spirits, denies symptoms of depression, denies suicidal and homicidal ideation. The patient is logical, coherent and relevant, oriented 3. He is future oriented, reports protective factors for depression and suicidality. Apparently his recent suicidal ideation was made under the influence of alcohol. There are also some elements of cluster B traits present which might suggest that a personality disorder also could be etiologically related with suicidality at presentation. He does not meet criteria for involuntary psychiatric admission. No psychotropics recommended. Molina act will be lifted. Assessment & Plan Estimated LOS: days Justification for Cont. Inpt. No psychiatric indication for admission Rhys Padgett MD March 12, 2018 11:22
[2018-03-12] MEDS ORDERED: LEVEMIR SQ (11:30)
--- NOTE | 2018-03-12 11:34 | HHI.PR ---
Subjective Remarks Follow-up hypoglycemia/suicidal attempt March 11, 2018-patient seen and examined, blood glucose trending up and patient denies any symptoms of nausea and vomiting. Denies any palpitation. Patient states, irregularities act of wanting to harm himself however denies any homicidal ideation. Vital stable. Appreciate input from psychiatry. March 12, 2018-patient seen and examined, had episode of hypoglycemia overnight which resolved otherwise currently stable and blood glucose 168. No chest pain or shortness of breath. Denies any palpitation. States he takes Levemir 18 units every 12 hours usually at home Objective Vitals Vital Signs Date Time Temp Pulse Resp B/P (MAP) Pulse Ox O2 Delivery O2 Flow Rate FiO2 03/12/18 08:00 97.8 85 18 119/82 (94) 95 03/12/18 00:01 98.3 87 16 114/75 (88) 99 03/11/18 21:42 Room Air 03/11/18 19:40 97.7 95 18 134/84 (101) 98 03/11/18 16:00 98.6 82 16 124/74 (91) 98 03/11/18 14:55 97.8 93 16 109/78 (88) 95 03/11/18 13:09 98.7 90 18 125/88 (100) 95 I/O 03/11/18 03/11/18 03/11/18 03/12/18 03/12/18 03/12/18 07:00 15:00 23:00 07:00 15:00 23:00 Intake Total 601 ml 600 ml 120 ml Balance 601 ml 600 ml 120 ml Intake Oral 120 ml IV Total 601 ml 600 ml # Voids 1 # Bowel Movements 0 Result Diagram: 03/12/18 0803 03/12/18 0803 Objective Remarks GENERAL: NAD SKIN: Warm and dry. HEAD: Normocephalic. EYES: No scleral icterus. No injection or drainage. NECK: Supple, trachea midline. No JVD or lymphadenopathy. CARDIOVASCULAR: Regular rate and rhythm without murmurs, gallops, or rubs. RESPIRATORY: Breath sounds equal bilaterally. No accessory muscle use. GASTROINTESTINAL: Abdomen soft, non-tender, nondistended. MUSCULOSKELETAL: No cyanosis, or edema. BACK: Nontender without obvious deformity. No CVA tenderness. Procedures none A/P Problem List: (1) Hypoglycemia ICD Code: E16.2 - Hypoglycemia, unspecified; R45.851 - Suicidal ideations Status: Acute (2) Noncompliance with medication regimen ICD Code: Z91.14 - Patient's other noncompliance with medication regimen (3) Type 1 diabetes mellitus on insulin therapy ICD Code: E10.9 - Type 1 diabetes mellitus on insulin therapy Status: Chronic (4) Bipolar disorder ICD Code: F31.9 - Bipolar disorder Status: Chronic (5) Depression with suicidal ideation ICD Code: F32.9 - Major depressive disorder, single episode, unspecified; R45.851 - Suicidal ideations Status: Acute Assessment and Plan 1. Hypoglycemia Resolved s/p D5 1/2 NS and hypoglycemia protocol Monitor blood glucose 2. Suicidal ideation Appreciate input from psychiatry, transferred to J POD when patient is medically stable Continue Molina act 3. Diabetes mellitus Currently on Levemir 15 units HS , and will discharge home on that regiment. patient needs to follow outpatient with PCP Continue with sliding-scale insulin Monitor blood glucose 4. Hypokalemia Status post p.o. repletion Monitor BMP 5. Acute alcohol intoxication/alcohol abuse Thiamine/folate/multivitamins [facility] protocol Monitor for signs of withdrawal Aston Leonard MD March 12, 2018 11:34
--- NOTE | 2018-03-12 11:36 | HHI.DS ---
Discharge Summary Admission Date March 11, 2018 at 03:51 Discharge Date: March 12, 2018 Admitting Diagnosis Persistent hypoglycemia, Molina Act (1) Hypoglycemia ICD Code: E16.2 - Hypoglycemia, unspecified; R45.851 - Suicidal ideations Status: Acute (2) Noncompliance with medication regimen ICD Code: Z91.14 - Patient's other noncompliance with medication regimen (3) Type 1 diabetes mellitus on insulin therapy ICD Code: E10.9 - Type 1 diabetes mellitus on insulin therapy Status: Chronic (4) Bipolar disorder ICD Code: F31.9 - Bipolar disorder Status: Chronic (5) Depression with suicidal ideation ICD Code: F32.9 - Major depressive disorder, single episode, unspecified; R45.851 - Suicidal ideations Status: Acute Procedures none Brief History - From Admission 48-year-old male with a past medical history significant for type 1 diabetes mellitus presents to the emergency department under Molina act [place]. During my interview with the patient he states that he tried to kill himself because a friend killed himself approximately 1 week ago. He also states he was feeling very ill as and as if he was going to having bloody emesis and blood in his right ear. Patient's mother approximately 4 years ago of unknown causes. The patient denies any current suicidal/homicidal ideation. He is intoxicated with a blood alcohol level of 247. He denies any chest pain or shortness of breath. No abdominal pain. No recent hematemesis. No nausea/vomiting/diarrhea. No increased weakness. No lateralizing signs/symptoms. No fevers/chills. CBC/BMP: 03/12/18 0803 03/12/18 0803 Significant Findings Laboratory Tests Test 03/10/18 22:54 03/10/18 23:34 03/12/18 08:03 Prothrombin Time 12.2 SEC (9.8-11.6) Red Blood Count 4.35 MIL/MM3 (4.50-5.90) 4.46 MIL/MM3 (4.50-5.90) Lymphocytes (%) (Auto) 46.8 % (9.0-44.0) Monocytes (%) (Auto) 8.8 % (0.0-8.0) 9.6 % (0.0-8.0) Eosinophils (%) (Auto) 4.4 % (0.0-4.0) 4.1 % (0.0-4.0) Lymphocytes # (Auto) 5.0 TH/MM3 (1.0-4.8) Eosinophils # (Auto) 0.5 TH/MM3 (0-0.4) Random Glucose 29 MG/DL (74-106) 168 MG/DL (74-106) Potassium Level 3.2 MEQ/L (3.5-5.1) Estimat Glomerular Filtration Rate 61 ML/MIN (>89) 74 ML/MIN (>89) Salicylates Level 1.9 MG/DL (2.8-20.0) Acetaminophen Level LESS THAN 2.0 MCG/ML Ethyl Alcohol Level 247 MG/DL (0-5) Imaging Last Impressions Head CT 03/10/182309 Signed Impressions: Service Date/Time: Saturday, March 10, 2018 23:57 - CONCLUSION: 1. Minimal periventricular small vessel ischemic demyelination predominantly around the frontal horns of the lateral ventricles. 2. No acute Kirk Herron MD Chest X-Ray 03/10/182309 Signed Impressions: Service Date/Time: Saturday, March 10, 2018 23:18 - CONCLUSION: 1. Probable skin fold projecting over the right upper hemithorax. 2. Otherwise, lungs are clear. Heart size is normal Kirk Herron MD PE at Discharge GENERAL: NAD SKIN: Warm and dry. HEAD: Normocephalic. EYES: No scleral icterus. No injection or drainage. NECK: Supple, trachea midline. No JVD or lymphadenopathy. CARDIOVASCULAR: Regular rate and rhythm without murmurs, gallops, or rubs. RESPIRATORY: Breath sounds equal bilaterally. No accessory muscle use. GASTROINTESTINAL: Abdomen soft, non-tender, nondistended. MUSCULOSKELETAL: No cyanosis, or edema. BACK: Nontender without obvious deformity. No CVA tenderness. Hospital Course While in hospital, patient was treated for; 1. Hypoglycemia Resolved with D5 1/2 NS and hypoglycemia protocol Monitor blood glucose 2. Suicidal ideation Appreciate input from psychiatry, however prior to discharge, Molina act was lifted 3. Diabetes mellitus Treated with Levemir 15 units HS , and will discharge home on that regiment. patient needs to follow outpatient with PCP Continue with sliding-scale insulin Monitor blood glucose 4. Hypokalemia Status post p.o. repletion Monitor BMP 5. Acute alcohol intoxication/alcohol abuse Thiamine/folate/multivitamins [facility] protocol Pt Condition on Discharge: Good Discharge Disposition: Discharge Home Discharge Time: <= 30 minutes Discharge Instructions DIET: Follow Instructions for: Diabetic Diet Activities you can perform: Regular-No Restrictions Follow up Referrals: PCP Follow-up - 2-3 Days New Medications: Insulin Detemir Inj (Levemir Inj) 1,000 unit/ 10 ML Vial 15 UNITS SQ HS for Blood Sugar Management, #100 INJECTION 3 Refills Do not mix with any other Insulin. Continued Medications: Insulin Aspart Inj (Novolog Inj) 1,000 Unit/10 Ml Vial 1-9 UNITS SQ ACHS for Blood Sugar Management, #10 ML 0 Refills Max dose at bedtime:( )units; sugars less than 70,(0)units; sugars 150-199,(1) unit; sugars 200-249,(3) units; sugars 250-299,(5) units; sugars 300-349,(7) units; sugars greater than 349,(9) units Discontinued Medications: Insulin Glargine Inj (Lantus Inj) 1,000 Unit/10 Ml Vial 1 UNITS SQ HS for Blood Sugar Management, #1000 VIAL 1 Refill start on 09/08 hs Aston Leonard MD March 12, 2018 11:36
[2018-03-12 12:00] VITALS: BP 122/81; PULSE 96; RESP 18; TEMP 98.2; O2SAT 97
== END 2018-03-12 12:41 | disposition home or self-care (01) | DRG 638 ==
LOC: NEPE 22:42 → NEDA 03-11 01:31 → OBSVTOIN 03-11 03:51 → NEPGCP 03-11 04:41 → N06A 03-11 14:44
PROVIDERS: ADMIT Hospitalist; ATTEND Hospitalist
DX: E10.649 Type 1 diabetes mellitus with hypoglycemia without coma (principal); R45.851 Suicidal ideations; K31.84 Gastroparesis; E10.43 Type 1 diabetes mellitus with diabetic autonomic (poly)neuropathy; F14.20 Cocaine dependence, uncomplicated; F13.20 Sedative, hypnotic or anxiolytic dependence, uncomplicated; F31.9 Bipolar disorder, unspecified; F41.9 Anxiety disorder, unspecified; E87.6 Hypokalemia; F10.229 Alcohol dependence with intoxication, unspecified; F12.20 Cannabis dependence, uncomplicated; F43.21 Adjustment disorder with depressed mood; F60.89 Other specific personality disorders; Y90.8 Blood alcohol level of 240 mg/100 ml or more; Z59.0 Homelessness; Z72.0 Tobacco use; Z79.4 Long term (current) use of insulin; Z83.3 Family history of diabetes mellitus; Z88.6 Allergy status to analgesic agent; Z91.14 Patient's other noncompliance with medication regimen
CPT/HCPCS: 70450; 71045; 80048; 80053; 80307; 82948; 83690; 83735; 85025; 85610; 85730; 93005; J1815; J3411; J7040

== ENCOUNTER 2018-03-30 10:20 | Inpatient (IN) | END 2018-04-01 12:07 | disposition home or self-care (01) | DRG 639 | DX: E10.10 Type 1 diabetes mellitus with ketoacidosis without coma (principal); K31.84 Gastroparesis; E10.43 Type 1 diabetes mellitus with diabetic autonomic (poly)neuropathy; F17.210 Nicotine dependence, cigarettes, uncomplicated; F10.20 Alcohol dependence, uncomplicated; F31.9 Bipolar disorder, unspecified; Z91.14 Patient's other noncompliance with medication regimen; F19.10 Other psychoactive substance abuse, uncomplicated; E86.0 Dehydration ==

== ENCOUNTER 2018-08-02 18:15 | Inpatient (IN) ==
--- NOTE | 2018-08-02 19:10 | XR ---
EXAM DATE: 08/02/2018 7:06 PM EDT AGE/SEX: 48 years / Male INDICATIONS: Chest pain. CLINICAL DATA: This is the patient's initial encounter. Patient reports that signs and symptoms have been present for 1 day and indicates a pain score of 5/10. MEDICAL/SURGICAL HISTORY: Diabetes. Renal calculi. None. COMPARISON: [facility], CHEST SINGLE AP, 03/30/2018. . FINDINGS: The lungs are clear without infiltrate, nodule, or mass. There is no appreciable pleural effusion for technique. Heart and mediastinum are unremarkable. CONCLUSION: No acute cardiopulmonary disease. Electronically signed by: Brigette Young MD 08/02/2018 7:08 PM EDT
[2018-08-02] MEDS ORDERED: Insulin Regular (For Infusion) 100 UNIT in Sodium Chlor 0.9% Inj 99 ML IV.CONT PRN ×2 (19:19→21:02)
[2018-08-02 19:21] LABS: VBG Base Excess -21.7 mmol/L (-2-2); VBG Blood Gas Oxygen Content 7.9 Vol % (9.0-17.0); VBG PCO2 21 mmHG (44-48); VBG PO2 26 mmHG (35-40)
[2018-08-02] MEDS: Sod Chloride 0.9% Inj 1,000 ML IV.SIG SCH ×2 (19:25→20:04)
[2018-08-02 19:26] LABS: Baso # (Auto) 0.1 th/mm3 (0.0-0.2); Baso % (Auto) 1.1 % (0.0-2.0); Chloride 100 meq/L (98-107); Hematocrit 45.7 % (39.0-51.0); Hemoglobin 15.7 gm/dL (13.0-17.0); Lymph # (Auto) 1.4 th/mm3 (1.0-4.8); Lymph % (Auto) 11.1 % (9.0-44.0); Mean Corpuscular HGB Conc 34.3 % (32.0-36.0); Mean Corpuscular Hemoglobin 34.1 pg (27.0-34.0); Mean Corpuscular Volume 99.5 fL (80.0-100.0); Mean Platelet Volume 9.2 fL (7.0-11.0); Mono # (Auto) 0.8 th/mm3 (0.0-0.9); Neut # (Auto) 10.7 th/mm3 (1.8-7.7); Neut % (Auto) 81.8 % (16.0-70.0); Platelet Count 371 th/mm3 (150-450); Potassium 5.4 meq/L (3.5-5.1); Red Blood Count 4.59 mil/mm3 (4.50-5.90); Red Cell Distribution Width 13.7 % (11.6-17.2); Sodium 134 meq/L (136-145)
--- NOTE | 2018-08-02 19:26 | ED ---
HPI General Chief complaint: Chest Pain Stated complaint: vomiting/dehydration/low blood sugar Time Seen by Provider: 08/02/18 18:38 Source: patient Mode of arrival: ambulatory Limitations: no limitations History of Present Illness HPI narrative: Patient is a 48-year-old male, history of type 1 diabetes, comes in complaining of nausea, vomiting, upper abdominal pain and chest pain. He says he had some vomiting about 10 days ago, but it got worse Yesterday. He says that he has had the chest pain for a while, but has attributed to working outside in the heat. He says that he notices blood sugar 400s today. He reports taking 70/30 insulin. He has no primary care doctor. He also reports anxiety, and says that he has not been able to see his psychiatrist in a while due to insurance issues. He denies cough or shortness of breath. Denies fever chills. Severity is moderate. Related Data Home Medications Medication Instructions Recorded Confirmed Novolin 70/30 U-100 Insulin 18 units SUB-Q BID 08/02/18 08/02/18 Allergies Allergy/AdvReac Type Severity Reaction Status Date / Time tramadol Allergy Severe INCREASES Verified 08/02/18 18:27 BLOOD SUGAR aspirin Allergy Unknown Urinary Verified 08/02/18 18:27 Freq (Inc/Dec) Review of Systems ROS: all other systems reviewed are negative Constitutional Denies chills and Denies fever(s) ENT Denies dizziness Cardiovascular Reports chest pain Respiratory Denies cough and Denies dyspnea Gastrointestinal Reports abdominal pain, Reports nausea and Reports vomiting Musculoskeletal Denies myalgias and Denies arthralgias Integumentary/Breasts Denies rash and Denies wounds Neurologic Denies focal weakness and Denies numbness PMFSH Medical History Medical History Diabetes (Acute) History of anxiety (Acute) Hx of diabetic gastroparesis (Acute) Surgical History Surgical History No history of previous surgery (Acute) Social History Social History Substance History: Active Abuse Second Hand Smoke Exposure: Yes Smoking Status: Current every day smoker Tobacco Type: Cigarettes How Often Do You Have a Drink Containing Alcohol: 4 or more times a week Recent Travel in [facility] within the Last 8 Weeks: No Recent Out of Country Travel within the Last 8 Weeks: No Substance Abuse Detail Marijuana: Substance Use Status: Active Route Used Substance Abuse: Inhalation Substance Frequency: 2-3 times weekly Immunization History Tetanus Immunization: Unsure Hx Influenza Vaccine This Season: No Exam Narrative Exam Narrative: GENERAL: Awake and alert, appears uncomfortable. Smells of ketones. SKIN: Focused skin assessment warm/dry. No wounds or signs of infection. HEAD: Atraumatic. Normocephalic. EYES: Pupils equal and round. No scleral icterus. ENT:Mucous membranes pink and moist. NECK: Trachea midline. No JVD. CARDIOVASCULAR: Tachycardia. No murmur appreciated. RESPIRATORY: No accessory muscle use. Clear to auscultation. Breath sounds equal bilaterally. GASTROINTESTINAL: Abdomen soft, nondistended. Tender to palpation of the epigastric area. No rebound or guarding. MUSCULOSKELETAL: No obvious deformities. No clubbing. No cyanosis. No edema. NEUROLOGICAL: Awake and alert. No obvious cranial nerve deficits. Motor grossly within normal limits. Normal speech. PSYCHIATRIC: Appropriate mood and affect; insight and judgment normal. Course Initial Documented Vital Signs Temperature 97.2 F L 08/02/18 18:28 Pulse Rate 115 H 08/02/18 18:28 Respiratory Rate 28 H 08/02/18 18:28 Blood Pressure 139/78 08/02/18 18:28 Pulse Oximetry 100 08/02/18 18:28 Last Documented Vital Signs Temperature 97.2 F L 08/02/18 18:28 Pulse Rate 115 H 08/02/18 18:28 Respiratory Rate 28 H 08/02/18 18:28 Blood Pressure 139/78 08/02/18 18:28 Pulse Oximetry 100 08/02/18 18:28 Critical Care Time Critical Care Time: Yes Total Critical Care Time: 35 Attestation: Aggregate critical care time was 35 minutes. Time to perform other separately billable procedures was not included in the critical care time. My time did not include minutes spent treating any other patients simultaneously or on activities that did not directly contribute to the patient's treatment. The services I provided to this patient were to treat and/or prevent clinically significant deterioration that could result in: Serious illness or I provided critical care services requiring my management, as noted below: Chart data review, documentation time, medication orders and management, vital sign assessments/reviewing monitor data, ordering and reviewing lab tests, ordering and interpreting/reviewing x-rays and diagnostic studies, care of the patient and discussion of the patient with the admitting physicians. Medical Decision Making MDM Narrative Medical decision making narrative: Patient is a 48-year-old male who comes in complaining of nausea, vomiting, abdominal pain and chest pain. He is visibly anxious. IV sevens, labs sent. Labs concerning for a pH of 7.098. Anion gap is 28. Patient given IV fluids. Given insulin. Started on insulin drip. Given Reglan. Given a small dose of Ativan. Patient will be admitted to the ICU. Medical Screen Exam Complete: Yes Emergency Medical Condition: Yes Differential Diagnosis Differential Diagnosis: DKA versus hyperglycemia versus electrolyte abnormality versus gastroparesis Medical Records Medical records reviewed: Yes I reviewed the patient's medical records. Lab Data Lab results reviewed: Yes I reviewed the patient's lab results. Result diagrams: 08/02/18 19:05 08/02/18 19:05 Lab Results 08/02/18 08/02/18 08/02/18 Range/Units 19:05 19:05 19:05 CBC w Diff Auto diff final WBC 13.0 H (4.0-11.0) th/mm3 RBC 4.59 (4.50-5.90) mil/mm3 Hgb 15.7 (13.0-17.0) gm/dL Hct 45.7 (39.0-51.0) % MCV 99.5 (80.0-100.0) fL MCH 34.1 H (27.0-34.0) pg MCHC 34.3 (32.0-36.0) % RDW 13.7 (11.6-17.2) % Plt Count 371 (150-450) th/mm3 MPV 9.2 (7.0-11.0) fL Neut % (Auto) 81.8 H (16.0-70.0) % Lymph % (Auto) 11.1 (9.0-44.0) % Mitchell % (Auto) 6.0 (0.0-8.0) % Eos % (Auto) 0.0 (0.0-4.0) % Baso % (Auto) 1.1 (0.0-2.0) % Neut # (Auto) 10.7 H (1.8-7.7) th/mm3 Lymph # (Auto) 1.4 (1.0-4.8) th/mm3 Mitchell # (Auto) 0.8 (0.0-0.9) th/mm3 Eos # (Auto) 0.0 (0.0-0.4) th/mm3 Baso # (Auto) 0.1 (0.0-0.2) th/mm3 WBC Differential . Differential Comment . Puncture Site Iv Patient Temperature 98.6 VBG pH 7.10 L* (7.360-7.400) VBG pCO2 21 L (44-48) mmHG VBG pO2 26 L* (35-40) mmHG VBG HCO3 6 L* (22-26) mmol/L VBG O2 Saturation 37 L (70-76) % VBG O2 Content 7.9 L (9.0-17.0) Vol % VBG Base Excess -21.7 L (-2-2) mmol/L VBG Carboxyhemoglobin 1.0 (0-4) % VBG Methemoglobin 1.9 (0-2) % Hemoglobin 15.5 (12.0-16.0) G/DL O2 Delivery Device Room air Inspired O2 21 % Critical Value Yes Sodium 134 L (136-145) meq/L Potassium 5.4 H (3.5-5.1) meq/L Chloride 100 (98-107) meq/L Carbon Dioxide 5.9 L (21.0-32.0) meq/L Anion Gap 28 H (5-15) meq/L BUN 15 (7-18) mg/dL Creatinine 1.40 H (0.60-1.30) mg/dL Estimated GFR 54 L (>89) mL/min Random Glucose 313 H (74-106) mg/dL Calcium 8.9 (8.5-10.1) mg/dL Total Bilirubin 0.7 (0.2-1.0) mg/dL Direct Bilirubin 0.2 (0.0-0.2) mg/dL Indirect Bilirubin 0.5 (0.0-0.8) mg/dL AST 34 (15-37) U/L ALT 32 (12-78) U/L Alkaline Phosphatase 68 (45-117) U/L Troponin I Less than 0.02 L (0.02-0.05) ng/mL Total Protein 8.4 H (6.4-8.2) g/dL Albumin 4.2 (3.4-5.0) g/dL Beta-Hydroxybutyric Acd 16.21 H (0.00-0.39) mmol/L Imaging Data Radiologist's impression: Chest X-Ray 08/02/18 18:43 CONCLUSION: No acute cardiopulmonary disease. ECG Data EKG Prior to Arrival: No Attestation: I personally reviewed and interpreted this ECG as follows: Interpretation: ECG shows sinus tachycardia at a rate of 113, short [place] interval , no ST elevation or depression Discharge Plan Discharge Disposition Patient Disposition: 30 Still Patient Discharge Condition Condition: Stable Discharge Details Diagnosis: DKA (diabetic ketoacidoses) Physicians Team ED Provider: Suyapa Linder Primary Care Provider: Primary Care Tammi Hutchison Rxs /Orders / Referrals /Forms Prescriptions: No Action Novolin 70/30 U-100 Insulin 18 units Sub-Q BID RF: 0 Discharge Instructions Patient Printed Instructions: Chest Pain (ED) Status ED Status: With Doctor
[2018-08-02 19:28] LABS: Calcium 8.9 mg/dL (8.5-10.1)
[2018-08-02 19:29] LABS: Albumin 4.2 g/dL (3.4-5.0); Anion Gap 28 meq/L (5-15); Blood Urea Nitrogen 15 mg/dL (7-18); Carbon Dioxide 5.9 meq/L (21.0-32.0); Glucose,Random 313 mg/dL (74-106)
[2018-08-02 19:32] LABS: Alanine Aminotransferase 32 U/L (12-78); Aspartate Aminotransferase 34 U/L (15-37); Glomerular Filtration Rate 54 mL/min (>89)
[2018-08-02 19:33] LABS: Total Protein 8.4 g/dL (6.4-8.2)
[2018-08-02 19:35] LABS: Alkaline Phosphatase 68 U/L (45-117)
[2018-08-02 19:52] LABS: Beta Hydroxybutyric Acid 16.21 mmol/L (0.00-0.39)
[2018-08-02] MEDS ORDERED: Morphine Sulfate Inj 2 MG/ML Vial IV.PUSH PRN (21:02)
[2018-08-02] MEDS ORDERED: Bisacodyl 10 MG Supp RECTAL PRN (21:02)
[2018-08-02] MEDS ORDERED: Acetaminophen 325 MG Tablet PO PRN (21:02)
[2018-08-02] MEDS ORDERED: Sodium Phosphate Inj 15 MMOL in Sodium Chlor 0.9% Inj 100 ML IV.SIG PRN (21:02)
[2018-08-02] MEDS ORDERED: Potassium Chlor 40 mEq Premix 40 MEQ/100 ML PIGGYBACK IV.SIG PRN ×2 (21:02)
[2018-08-02] MEDS ORDERED: Potassium Chlor 20 mEq Premix 20 MEQ/100 ML PIGGYBACK IV.SIG PRN ×6 (21:02)
--- NOTE | 2018-08-02 21:55 | XR ---
EXAM DATE: 08/02/2018 9:47 PM EDT AGE/SEX: 48 years / Male INDICATIONS: Fever. CLINICAL DATA: This is the patient's subsequent encounter. Patient reports that signs and symptoms h ave been present for 1 day and indicates a pain score of 0/10. MEDICAL/SURGICAL HISTORY: Diabetes. Renal calculi. None. COMPARISON: [facility], CHEST 1V SINGLE AP, 08/02/2018. . FINDINGS: The lungs are clear without infiltrate, nodule, or mass. There is no appreciable pleural effusion for technique. Heart and mediastinum are unremarkable. CONCLUSION: No acute cardiopulmonary disease. Electronically signed by: Brigette Young MD 08/02/2018 9:53 PM EDT
[2018-08-02] MEDS: Dextrose 5%/NaCl 0.9% Inj 1,000 ML IV.CONT SCH (22:07)
[2018-08-02 22:18] LABS: Anion Gap 25 meq/L (5-15); Blood Urea Nitrogen 15 mg/dL (7-18); Calcium 7.6 mg/dL (8.5-10.1); Carbon Dioxide 6.1 meq/L (21.0-32.0); Chloride 109 meq/L (98-107); Glucose,Random 196 mg/dL (74-106); Potassium 3.9 meq/L (3.5-5.1); Sodium 140 meq/L (136-145)
[2018-08-02 22:31] LABS: Glomerular Filtration Rate 59 mL/min (>89)
[2018-08-02] MEDS: Sod Chloride 0.9% Inj 1,000 ML IV.CONT SCH (22:57)
[2018-08-03] MEDS: Heparin - SQ 10,000 UNITS/ML Vial SQ SCH ×4 (00:45→21:51)
[2018-08-03] MEDS: Sod Chloride 0.9% Inj 1,000 ML IV.CONT SCH ×2 (02:20→17:05)
[2018-08-03] MEDS: Dextrose 5%/NaCl 0.9% Inj 1,000 ML IV.CONT SCH (03:23)
[2018-08-03] MEDS ORDERED: Chlorhexidine Gluconate 2% 1 Pack (2 Cloths) TOPICAL PRN (04:00)
[2018-08-03] MEDS ORDERED: Chlorhexidine Gluconate 2% 1 Pack (2 Cloths) TOPICAL SCH (04:00)
[2018-08-03 05:13] LABS: Baso # (Auto) 0.1 th/mm3 (0.0-0.2); Baso % (Auto) 0.4 % (0.0-2.0); Eos % (Auto) 0.2 % (0.0-4.0); Hematocrit 44.5 % (39.0-51.0); Hemoglobin 14.7 gm/dL (13.0-17.0); Lymph # (Auto) 0.3 th/mm3 (1.0-4.8); Lymph % (Auto) 1.8 % (9.0-44.0); Mean Corpuscular HGB Conc 33.1 % (32.0-36.0); Mean Corpuscular Hemoglobin 28.8 pg (27.0-34.0); Mean Corpuscular Volume 87.2 fL (80.0-100.0); Mean Platelet Volume 8.4 fL (7.0-11.0); Mono # (Auto) 0.6 th/mm3 (0.0-0.9); Mono % (Auto) 3.2 % (0.0-8.0); Neut # (Auto) 16.2 th/mm3 (1.8-7.7); Neut % (Auto) 94.4 % (16.0-70.0); Platelet Count 195 th/mm3 (150-450); Red Cell Distribution Width 13.8 % (11.6-17.2); White Blood Count 17.2 th/mm3 (4.0-11.0)
[2018-08-03 05:21] LABS: Chloride 103 meq/L (98-107); Potassium 3.7 meq/L (3.5-5.1); Sodium 141 meq/L (136-145)
[2018-08-03 05:24] LABS: Activated Partial Thrombo Time 27.3 sec (24.3-30.1); INR 1.1 Ratio; Prothrombin Time 11.4 sec (9.8-11.6)
[2018-08-03 05:26] LABS: Calcium 8.2 mg/dL (8.5-10.1)
[2018-08-03 05:36] LABS: Alanine Aminotransferase 19 U/L (12-78); Albumin 3.2 g/dL (3.4-5.0); Alkaline Phosphatase 100 U/L (45-117); Anion Gap 7 meq/L (5-15); Aspartate Aminotransferase 10 U/L (15-37); Blood Urea Nitrogen 19 mg/dL (7-18); Carbon Dioxide 30.7 meq/L (21.0-32.0); Glomerular Filtration Rate 71 mL/min (>89); Glucose,Random 153 mg/dL (74-106); Magnesium 2.5 mg/dL (1.5-2.5); Phosphorus 3.3 mg/dL (2.5-4.9); Total Protein 6.6 g/dL (6.4-8.2)
[2018-08-03] MEDS ORDERED: DC previous DKA orders (HMC 1917) OTHER ONE ×2 (05:41→22:04)
[2018-08-03] MEDS ORDERED: Dextrose 50% in Water 50 ML Vial IV.PUSH PRN ×2 (05:41→07:14)
[2018-08-03] MEDS ORDERED: DC Insulin drip 2 hrs post basal insulin dose OTHER ONE ×2 (05:41→22:04)
[2018-08-03] MEDS ORDERED: Insulin Regular (For Infusion) 100 UNIT in Sodium Chlor 0.9% Inj 99 ML IV.CONT PRN ×2 (05:59→20:13)
--- NOTE | 2018-08-03 06:53 | P.HPCC ---
History of Present Illness Service: Critical care medicine Primary Care Physician: No Primary Care Physician Chief Complaint: Nausea History of Present Illness: This is a 48-year-old male. Date of admission 08/03/2008. Past medical history includes bipolar disorder, IDDM, hepatitis C and nephrolithiasis. Patient presents to [facility] emergency department with chief complaint of nausea, vomiting, upper abdominal pain and chest "pressure".. He says he had some vomiting about 10 days ago, but it got worse on 08/01. He says that he has had the chest pain for a while, but has attributed to working outside in the heat. He states that other coworkers have been admitted to the hospital for "heat stroke". He says that he notices blood sugar 400s today. He reports taking 70/30 insulin 18 units twice daily as scheduled.. He has no primary care doctor. He also reports anxiety, and says that he has not been able to see his psychiatrist in a while due to insurance issues. Patient is noted to have an elevated blood sugar and elevated beta hydroxybutyrate. Troponin was negative. Chest x-ray revealed no acute findings. Blood cultures were done. He does not have a leukocytosis. Currently afebrile. He is received R insulin is currently in insulin drip at 2 units an hour. He will be transitioned back to his home scheduled insulin and sliding scale later on this morning. He is currently denying chest pain, shortness of breath. Afebrile. The chest pressure is nonspecific and evaluation. Patient is reproducible. Worse with deep inspiration. Does not radiate to his back, neck or down left arm. Will check CT pulmonary angiogram and another troponin. 2D echocardiogram ordered. Inpatient Certification: I certify that the inpatient services were ordered in accordance with Medicare regulations governing the order. This includes certification that hospital inpatient services are reasonable and necessary and in the case of services not specified as inpatient-only under 42 CFR 419.22(n), that they are appropriately provided as inpatient services in accordance to with the 2-midnight benchmark under 43 CFR 412.3(e) Estimated Total Length of Stay (Days): 5 Plans for Post Hospital Care: Not yet determined Review of Systems Constitutional: Denies anorexia, Denies body ache(s), Denies chills, Denies daytime sleepiness Eyes: Denies blind spots Ears, Nose, Mouth, and Throat: Denies abnormal hearing, Denies bleeding gums Cardiovascular: Reports chest pain, Denies chest pain at rest, Denies chest pain with activity, Denies fast heart rate Respiratory: Denies change in phlegm color, Denies chest congestion, Denies cough Gastrointestinal: Reports nausea, Reports vomiting, Denies abdominal pain, Denies pain with swallowing Genitourinary: Denies difficulty urinating Musculoskeletal: Denies back pain Skin/Breast: Denies bleeding lesions, Denies boil Neurologic: Denies localized weakness Psychiatric: Reports anxiety, Denies abnormal sleep pattern Endocrine: Denies cold intolerance, Denies excessive sweating Hematologic/Lymphatic: Denies easy bleeding Allergic/Immunologic: Denies GI upset with certain foods PMFSH - History History Provided By: Patient - Medical History Medical History: Medical History (Last Updated 08/03/18 @ 07:11 by Gerardo Maxwell MD) Bipolar 1 disorder Diabetes Hepatitis C History of anxiety History of nephrolithiasis Hx of diabetic gastroparesis Polysubstance abuse - Surgical History Surgical History: Surgical History (Last Updated 08/03/18 @ 07:10 by Gerardo Maxwell MD) History of colonoscopy History of esophagogastroduodenoscopy (EGD) - Family History Family History: Family History (Last Updated 08/03/18 @ 07:10 by Gerardo Maxwell MD) Mother Family history of stroke Other Family history of diabetes mellitus - Social History I have reviewed the patient's Social History: Yes - Tobacco History Second Hand Smoke Exposure: No Tobacco Use In Past 30 Days: Yes Smoking Status: Former smoker Tobacco Type: Cigarettes - Alcohol History How Often Do You Have a Drink Containing Alcohol: 2 to 4 times a month - Substance Use History Substance History: No History of Abuse - Substance Use Type Marijuana Status: Active Route Used: Inhalation Frequency: 2-3 times weekly - Travel History Recent Travel in the [place] Within the Last 8 Weeks: No Recent Travel Out of the Country Within the Last 8 Weeks: No - Immunization History Tetanus Immunization: Unsure Hx Influenza Vaccine This Season: No Medications and Allergies Active Medications: Active Medications Acetaminophen (Tylenol) 650 mg PO Q6H PRN PRN Reason: PAIN 1-10 AND/OR FEVER >101F Al Hydroxide/Mg Hydroxide (Milk Of Magnesia Liq) 30 ml PO Q12H PRN PRN Reason: Mild Constipation Albuterol (Duoneb Neb (Prn)) 1 ampul NEB Q2HR NEB PRN PRN Reason: WHEEZING Bisacodyl (Dulcolax Supp) 10 mg RECTAL DAILY PRN PRN Reason: SEVERE CONSITIPATION Chlorhexidine Gluconate (Chlorhexidine 2% Cloth) 3 pack TOPICAL DAILY@0400 NGUYEN Stop: 08/08/18 03:59 Last Admin: 08/03/18 03:24 Dose: 3 pack Chlorhexidine Gluconate (Chlorhexidine 2% Cloth) 3 pack TOPICAL DAILY@0400 PRN PRN Reason: Extra cloth needed Stop: 08/08/18 03:59 Dextrose (D50w Vial) 50 ml IV.PUSH UNSCH PRN PRN Reason: PER HYPOGLYCEMIA PROTOCOL Glucagon (Glucagon Inj) 1 mg OTHER PRN PRN PRN Reason: for Hypoglycemia Protocol Heparin Sodium (Porcine) (Heparin Inj) 5,000 units SQ Q8HR [facility] Last Admin: 08/03/18 00:45 Dose: 5,000 units Sodium Chloride (Ns Inj) 1,000 mls @ 0 mls/hr IV.SIG BOLUS [facility] Last Infusion: 08/02/18 20:30 Dose: Infused Sodium Chloride (Ns Inj) 1,000 mls @ 0 mls/hr IV.SIG BOLUS [facility] Last Admin: 08/02/18 20:04 Dose: 1,000 mls/hr Insulin Human Regular 100 unit (/ Sodium Chloride) 100 mls @ 0 mls/hr IV.CONT TITRATE PRN; Protocol PRN Reason: See protocol Stop: 08/03/18 11:00 Last Admin: 08/03/18 06:28 Dose: 2 units/hr, 2 mls/hr Insulin Aspart (Novolog Insulin Correctional Sugar Inj) 0 unit SQ ACHS NGUYNE; Protocol Insulin Detemir (Levemir Inj) 15 unit SQ DAILY [facility] Lactulose (Lactulose Liq) 30 ml PO DAILY PRN PRN Reason: SEVERE CONSITIPATION Morphine Sulfate (Morphine Inj) 2 mg IV.PUSH Q2H PRN PRN Reason: PAIN SCALE 6 TO 10 Ondansetron HCl (Zofran Inj) 4 mg IV.PUSH Q6H PRN PRN Reason: NAUSEA OR VOMITING Senna/Docusate Sodium (Maggie-Colace) 1 tab PO BID NGUYEN Sennosides (Senokot) 17.2 mg PO Q12H PRN PRN Reason: Moderate Constipation Sodium Chloride (Ns Flush) 2 ml IV.FLUSH BID NGUYEN Sodium Chloride (Ns Flush) 2 ml IV.FLUSH PRN PRN PRN Reason: FLUSH AFTER USING IV ACCESS Allergies Allergy/AdvReac Type Severity Reaction Status Date / Time tramadol Allergy Severe INCREASES Verified 08/02/18 18:27 BLOOD SUGAR aspirin Allergy Unknown Urinary Verified 08/02/18 18:27 Freq (Inc/Dec) Home Medications Medication Instructions Recorded Confirmed Type Novolin 70/30 U-100 Insulin 18 units SUB-Q BID 08/02/18 08/02/18 History Results - Labs CBC & Chem 7: 08/03/18 04:40 08/03/18 04:40 Labs: Short CBC 08/02/18 08/03/18 Range/Units 19:05 04:40 WBC 13.0 H 17.2 H (4.0-11.0) th/mm3 Hgb 15.7 14.7 (13.0-17.0) gm/dL Hct 45.7 44.5 (39.0-51.0) % Plt Count 371 195 D (150-450) th/mm3 BMP 08/02/18 08/02/18 08/03/18 19:05 21:30 04:40 Sodium 134 L 140 141 Potassium 5.4 H 3.9 D 3.7 Chloride 100 109 H D 103 Carbon Dioxide 5.9 L 6.1 L 30.7 D BUN 15 15 19 H Creatinine 1.40 H 1.30 1.10 Calcium 8.9 7.6 L D 8.2 L Cardiac Enzymes 08/02/18 08/02/18 08/03/18 Range/Units 19:05 21:30 02:45 Troponin I Less than 0.02 L Less than 0.02 L Less than 0.02 L (0.02-0.05) ng/mL Liver Function 08/02/18 08/03/18 Range/Units 19:05 04:40 Total Bilirubin 0.7 0.4 (0.2-1.0) mg/dL Direct Bilirubin 0.2 (0.0-0.2) mg/dL AST 34 10 L (15-37) U/L ALT 32 19 (12-78) U/L Alkaline Phosphatase 68 100 (45-117) U/L Albumin 4.2 3.2 L D (3.4-5.0) g/dL - Imaging Impressions Chest X-Ray 08/02/18 18:43 CONCLUSION: No acute cardiopulmonary disease. Chest X-Ray 08/02/18 21:06 CONCLUSION: No acute cardiopulmonary disease. Exam Vital signs: Vital Signs 08/02/18 18:28 08/02/18 19:05 08/02/18 20:05 Temperature 97.2 F L Pulse Rate 115 H 120 H 132 H Respiratory Rate 28 H 24 24 Blood Pressure 139/78 133/74 166/75 H Pulse Oximetry 100 99 97 08/02/18 22:00 08/02/18 23:00 08/03/18 00:00 Temperature 97.8 F 97.9 F Pulse Rate 102 H 100 H 96 H Respiratory Rate 16 14 Blood Pressure 102/65 93/61 L 126/69 Pulse Oximetry 97 100 08/03/18 01:00 08/03/18 02:00 08/03/18 03:00 Temperature Pulse Rate 96 H 94 H 92 H Respiratory Rate Blood Pressure 93/54 L 95/56 L 109/61 Pulse Oximetry 08/03/18 04:00 08/03/18 05:00 08/03/18 06:00 Temperature 98.2 F Pulse Rate 90 88 87 Respiratory Rate 16 Blood Pressure 85/53 L 108/73 116/69 Pulse Oximetry 96 Intake & Output 08/02/18 08/02/18 08/03/18 06:59 18:59 06:59 Intake Total 1999 Balance 1999 Weight 52.7 kg 54.7 kg Intake: IV 1999 D5W/Normal Saline Inj 1,000 ML 1000 / 1000 @ 200 mls/hr IV.CONT .Q5H NGUYEN Rx#:[id number] NS Inj 1,000 ML @ Wide Open IV. 1000 / 1000 SIG BOLUS NGUYEN Rx#:[id number] Other: # Voids 1 Date of Last Bowel Movement 08/03/18 # Bowel Movements 1 Weight On Admission 54.7 kg - Constitutional no acute distress - Routine HEENT Exam Head: Present: normocephalic, atraumatic Eye: Present: EOMI, PERRL, normal accommodation ENT: Present: mucous membranes moist - Routine Neck Exam Present: supple, full ROM. Absent: JVD, carotid bruit - Routine Chest/Breast/Axilla Exam Chest wall: Absent: tenderness Breast: Absent: tenderness Axillae: Absent: lymphadenopathy - Routine Respiratory Exam Present: CTA bilaterally. Absent: wheezes, crackles - Routine Cardiovascular Exam Present: RRR, S1, S2. Absent: murmur - Routine Abdominal Exam Present: soft, normoactive bowel sounds. Absent: guarding - Routine Extremities Exam Absent: cyanosis, clubbing, edema - Routine Skin Exam Present: intact - Routine Neurological Exam Present: alert, oriented X3, CN II-XII intact Septic Shock Reassessment Septic shock perfusion: reassessment completed Caprini VTE Risk Assessment Caprini VTE Risk Assessment: Moderate/High Risk (score >= 2) Caprini Risk Assessment Model: Point Value = 1 Point Value = 2 Point Value = 3 Point Value = 5 Age 41-60 Minor surgery BMI > 25 kg/m2 Swollen legs Varicose veins or History of unexplained or recurrent spontaneous Oral contraceptives or hormone replacement Sepsis (< 1 month) Serious lung disease, including pneumonia (< 1 month) Abnormal pulmonary function Acute myocardial infarction Congestive heart failure (< 1 month) History of inflammatory bowel disease Medical patient at bed rest Age 61-74 Arthroscopic surgery Major open surgery (> 45 min) Laparoscopic surgery (> 45 min) Malignancy Confined to bed (> 72 hours) Immobilizing plaster cast Central venous access Age >= 75 History of VTE Family history of VTE Factor V Leiden Prothrombin [id number] Lupus anticoagulant Anticardiolipin antibodies Elevated serum homocysteine Heparin-induced thrombocytopenia Other congenital or acquired thrombophilia Stroke (< 1 month) Elective arthroplasty Hip, pelvis, or leg fracture Acute spinal cord injury (< 1 month) Prophylaxis Regimen: Total Risk Factor Score Risk Level Prophylaxis Regimen 0-1 Low Early ambulation 2 Moderate Order ONE of the following: *Sequential Compression Device (SCD) *Heparin 5000 units SQ BID 3-4 Higher Order ONE of the following medications: *Heparin 5000 units SQ TID *Enoxaparin/Lovenox 40 mg SQ daily (WT < 150 kg, CrCl > 30 mL/min) *Enoxaparin/Lovenox 30 mg SQ daily (WT < 150 kg, CrCl > 10-29 mL/min) *Enoxaparin/Lovenox 30 mg SQ BID (WT < 150 kg, CrCl > 30 mL/min) AND/OR *Sequential Compression Device (SCD) 5 or more Highest Order ONE of the following medications: *Heparin 5000 units SQ TID (Preferred with Epidurals) *Enoxaparin/Lovenox 40 mg SQ daily (WT < 150 kg, CrCl > 30 mL/min) *Enoxaparin/Lovenox 30 mg SQ daily (WT < 150 kg, CrCl > 10-29 mL/min) *Enoxaparin/Lovenox 30 mg SQ BID (WT < 150 kg, CrCl > 30 mL/min) AND *Sequential Compression Device (SCD) Assessment and Plan - Assessment and Plan Plan: Neuro/Psych: Bipolar disorder type I Anxiety disorder NOS History of polysubstance abuse including cocaine Currently not on any medications for his bipolar disorder Acetaminophen 650 mg every 4 hours as needed fever Morphine sulfate 2 mg IV every 2 hours as needed pain CV: CP NOS Patient is currently on D5 normal saline at 200 cc an hour. Will discontinue at 9 AM Not requiring vasopressors and/or antihypertensives Troponins and EKG essentially equivocal. We will check CT pulmonary angiogram today 2D echocardiogram ordered. Resp: Nasal cannula to maintain saturations greater or equal to 92% Incentive spirometry while awake Chest x-ray revealed no acute cardiopulmonary findings GI: History of diabetic gastroparesis History of hepatitis C As needed metoclopramide and ondansetron for nausea ADA diet Pantoprazole for GI prophylaxis Docusate serum/senna 1 tablet twice daily for bowel regimen : History of nephrolithiasis No indication for Manzanares catheter Endo: IDDM DKA We will transition to insulin 70/30 18 units twice daily/home medication with aspart insulin sliding scale Renal: Creatinine currently within normal limits Monitor urine output accurate I's and O's Heme: Leukocytosis Monitor CBC daily. Follow trends. No indication for transfusion of blood products at this time ID: Monitor for signs and symptomatology infection Blood cultures 2 pending 08/02 MSK: Out of bed/PT evaluate and treat FEN: Replace electrolytes as clinically indicated Access -Utilize peripheral IV. Central line if indicated Prophylaxis -GI- Pantoprazole- -DVT SCD/heparin subcu Level 2 admission. Transfer care to hospitalist in a.m. 08/04. Code Status: Full code H&P: Quality - VTE Deep Vein Thrombosis/Pulmonary Embolism Present on Admission: No
[2018-08-03] MEDS: Insulin NovoLOG Aspart Correctional Sugar Inj SQ SCH ×3 (09:00→16:55)
[2018-08-03] MEDS ORDERED: Insulin Aspart Prot 70/30 1,000 UNITS/10 ML Vial SQ SCH ×2 (09:00→17:00)
[2018-08-03] MEDS ORDERED: Insulin Detemir Inj 1,000 UNIT/10 ML Vial SQ SCH (09:00)
--- NOTE | 2018-08-03 09:45 | CT ---
EXAM DATE: 08/03/2018 9:39 AM EDT AGE/SEX: 48 years / Male INDICATIONS: Chest pain. CLINICAL DATA: This is the patient's initial encounter. Patient reports that signs and symptoms have been present for 2 days and indicates a pain score of 2/10. MEDICAL/SURGICAL HISTORY: Diabetes. None. RADIATION DOSE: 7.07 CTDI (mGy) COMPARISON: [facility], CHEST 1V SINGLE AP, 08/02/2018. . TECHNIQUE: Volumetric scanning was performed using a multi-row detector CT scanner during bolus infu huy of 65 ml Omnipaque 350 (iohexol) nonionic water-soluble contrast as a single exam dose. The bridgette a was post processed with a variety of visualization algorithms including full volume maximum intensi ty projection and sliding thin slab reformation. Using automated exposure control and adjustment of the mA and/or kV according to patient size, radiation dose was kept as low as reasonably achievable t o obtain optimal diagnostic quality images. DICOM format image data is available electronically for review and comparison. FINDINGS: Pulmonary Arteries: No filling defects are seen in the pulmonary arteries through the mid segmental vessels. The main pulmonary artery is normal in diameter. Lung: No focal parenchymal abnormalities. Pleura: No effusion, significant pleural thickening or pneumothorax. Mediastinum: Heart is unremarkable without pericardial effusion.No evidence of mediastinal or hilar adenopathy. Osseous Structures: No abnormal focal lytic or blastic bony lesions. Other: Visulaized upper abdomen demonstrates a nonobstructing 3 mm calyceal calculus in the superior pole of the left kidney. There is a bilobed mass measuring 4.6 x 2.6 cm arising from the fundus of t he stomach which is incompletely imaged and evaluated due to lack of p.o. contrast and arterial phase technique. 1.2 cm densely calcified left thyroid nodule. CONCLUSION: 1. No CT evidence for pulmonary artery embolism to the mid segmental level. 2. 4.6 x 2.6 cm mass arising from the fundus of the stomach which is incompletely imaged and evaluat ed on this exam. This may reflect a gastric diverticulum with incomplete distention. Further evaluati on may be performed with upper endoscopy or abdominal CT examination on an outpatient basis. 3. Nonobstructing 3 mm left superior pole renal calyceal calculus. 4. 1.2 cm densely calcified left thyroid nodule. Electronically signed by: Francois Coley MD 08/03/2018 9:44 AM EDT
--- NOTE | 2018-08-03 10:08 | ECHRPT ---
Indication: CHEST PAIN CONCLUSIONS Limited study to assess for LV function. The left ventricular systolic function is normal with an estimated ejection fraction in the range of 60-65%. Normal left ventricular size and wall thickness. No regional wall motion abnormalities are present. No significant Valvular abnormalities noted on limited views. IVC is normal size with >50% collapse with inspiration. BP: / HR: Rhythm: Sinus MEASUREMENTS (Male / Female) Normal Values Technical Quality:Good 2D ECHO LV Diastolic Diameter PLAX 4.3 cm 4.2 - 5.9 / 3.9 - 5.3 cm LV Systolic Diameter PLAX 3.2 cm IVS Diastolic Thickness 0.9 cm 0.6 - 1.0 / 0.6 - 0.9 cm LVPW Diastolic Thickness 0.9 cm 0.6 - 1.0 / 0.6 - 0.9 cm LV Relative Wall Thickness 0.4 LV Ejection Fraction MOD 4C 69.2 % LV Ejection Fraction 4C AL 69.9 % FINDINGS LEFT VENTRICLE The left ventricular systolic function is normal with an estimated ejection fraction in the range of 60-65%. Normal left ventricular size. Wall thickness is normal. No regional wall motion abnormalities are present. RIGHT VENTRICLE Normal Size, Wall Thickness, and function. Joshua Bernal MD (Electronically Signed) Final Date:03 August 2018 10:07
[2018-08-03] MEDS: Senna/Docusate Sodium 8.6/50 MG Tablet PO SCH ×2 (11:56→21:48)
[2018-08-03] MEDS: Pantoprazole Sodium 20 MG DR Tablet PO SCH (12:16)
[2018-08-03 17:35] LABS: Potassium 3.2 meq/L (3.5-5.1)
[2018-08-03 17:38] LABS: Calcium 8.5 mg/dL (8.5-10.1)
[2018-08-03 18:05] LABS: Carbon Dioxide 14.1 meq/L (21.0-32.0); Magnesium 2.1 mg/dL (1.5-2.5)
--- NOTE | 2018-08-03 18:31 | ECG ---
Date Performed: 08/03/2018 Time Performed: 03:14:03 PTAGE: 48 years EKG: Sinus rhythm MARKED LEFT AXIS DEVIATION ABNORMAL ECG PREVIOUS TRACING : 08/02/2018 21.59 DOCTOR: Nae Patterson Interpretating Date/Time 08/03/2018 18:30:05
--- NOTE | 2018-08-03 18:34 | ECG ---
Date Performed: 08/02/2018 Time Performed: 21:59:01 PTAGE: 48 years EKG: SINUS TACHYCARDIA MARKED LEFT AXIS DEVIATION ABNORMAL ECG PREVIOUS TRACING : 08/02/2018 18.51 DOCTOR: Nae Patterson Interpretating Date/Time 08/03/2018 18:31:53
--- NOTE | 2018-08-03 18:37 | ECG ---
Date Performed: 08/02/2018 Time Performed: 18:51:11 PTAGE: 48 years EKG: SINUS TACHYCARDIA WITH SHORT PA INTERVAL MARKED LEFT AXIS DEVIATION ABNORMAL ECG PREVIOUS TRACING : 03/30/2018 11.21 DOCTOR: Nae Patterson Interpretating Date/Time 08/03/2018 18:34:14
[2018-08-03] MEDS ORDERED: Potassium Chlor 20 mEq Premix 20 MEQ/100 ML PIGGYBACK IV.SIG PRN ×11 (19:12→20:13)
[2018-08-03] MEDS ORDERED: Potassium Chlor 40 mEq Premix 40 MEQ/100 ML PIGGYBACK IV.SIG PRN ×4 (19:12→20:13)
[2018-08-03] MEDS: Sod Chloride 0.9% Inj 1,000 ML IV.SIG SCH ×2 (19:29→20:17)
[2018-08-03] MEDS ORDERED: Sodium Phosphate Inj 15 MMOL in Sodium Chlor 0.9% Inj 100 ML IV.SIG PRN ×2 (19:34→20:13)
[2018-08-03] MEDS ORDERED: Dextrose 5%/NaCl 0.9% Inj 1,000 ML IV.CONT SCH ×2 (19:45→20:15)
[2018-08-03] MEDS ORDERED: Sod Chloride 0.9% Inj 1,000 ML IV.CONT SCH ×2 (19:45→20:15)
[2018-08-03 20:14] LABS: Potassium 3.1 meq/L (3.5-5.1)
[2018-08-03 20:16] LABS: Calcium 7.9 mg/dL (8.5-10.1)
[2018-08-03 20:17] LABS: Carbon Dioxide 20.3 meq/L (21.0-32.0)
[2018-08-03 20:22] LABS: Phosphorus 0.6 mg/dL (2.5-4.9)
[2018-08-03 20:33] LABS: Beta Hydroxybutyric Acid 2.71 mmol/L (0.00-0.39)
[2018-08-03] MEDS: Potassium Chlor 20 mEq Premix 20 MEQ/100 ML PIGGYBACK IV.SIG PRN ×2 (20:40→21:47)
[2018-08-04] MEDS: Acetylcysteine 20% Oral Liq 4 ML Vial PO SCH ×4 (02:27→21:21)
[2018-08-04] MEDS: Insulin NovoLOG Aspart Correctional Sugar Inj SQ SCH ×5 (03:45→21:22)
[2018-08-04] MEDS ORDERED: Chlorhexidine Gluconate 2% 1 Pack (2 Cloths) TOPICAL PRN (04:00)
[2018-08-04] MEDS: Chlorhexidine Gluconate 2% 1 Pack (2 Cloths) TOPICAL SCH (04:03)
[2018-08-04] MEDS: Heparin - SQ 10,000 UNITS/ML Vial SQ SCH ×3 (06:12→21:29)
[2018-08-04 07:05] LABS: Baso # (Auto) 0.1 th/mm3 (0.0-0.2); Eos # (Auto) 0.1 th/mm3 (0.0-0.4); Eos % (Auto) 1.3 % (0.0-4.0); Hematocrit 38.8 % (39.0-51.0); Lymph % (Auto) 33.1 % (9.0-44.0); Mean Corpuscular HGB Conc 33.5 % (32.0-36.0); Mean Corpuscular Volume 98.6 fL (80.0-100.0); Mean Platelet Volume 8.4 fL (7.0-11.0); Mono # (Auto) 0.5 th/mm3 (0.0-0.9); Mono % (Auto) 7.5 % (0.0-8.0); Neut # (Auto) 3.4 th/mm3 (1.8-7.7); Neut % (Auto) 57.1 % (16.0-70.0); Platelet Count 242 th/mm3 (150-450); Red Blood Count 3.94 mil/mm3 (4.50-5.90); Red Cell Distribution Width 12.5 % (11.6-17.2); White Blood Count 6.1 th/mm3 (4.0-11.0)
[2018-08-04] MEDS ORDERED: Insulin Regular (For Infusion) 100 UNIT in Sodium Chlor 0.9% Inj 99 ML IV.CONT PRN (07:05)
[2018-08-04 07:22] LABS: Chloride 103 meq/L (98-107); Potassium 3.4 meq/L (3.5-5.1); Sodium 134 meq/L (136-145)
[2018-08-04 07:25] LABS: Calcium 7.8 mg/dL (8.5-10.1)
[2018-08-04 07:41] LABS: Anion Gap 9 meq/L (5-15); Blood Urea Nitrogen 5 mg/dL (7-18); Carbon Dioxide 22.1 meq/L (21.0-32.0); Glomerular Filtration Rate Greater Than 89 mL/min (>89); Glucose,Random 267 mg/dL (74-106)
[2018-08-04 08:24] LABS: Magnesium 1.6 mg/dL (1.5-2.5)
[2018-08-04] MEDS: Insulin Aspart Prot 70/30 1,000 UNITS/10 ML Vial SQ SCH ×2 (08:48→18:29)
[2018-08-04] MEDS: Senna/Docusate Sodium 8.6/50 MG Tablet PO SCH ×2 (08:51→21:21)
[2018-08-04] MEDS: Pantoprazole Sodium 20 MG DR Tablet PO SCH (09:41)
[2018-08-04] MEDS ORDERED: Potassium Phosphate Inj 30 MMOL in Sodium Chlor 0.9% Inj 250 ML IV.SIG ONE (11:00)
--- NOTE | 2018-08-04 11:07 | P.PN ---
Subjective Interval history: Consulted by critical care medicine for transfer care and medical management. Patient was managed for DKA. He also presented with sharp pleuritic retrosternal pain which he relates to heat. It is not exertional. CTA and echocardiogram both unremarkable. At this time patient has no complaints. He was noted to be hypoglycemic early this morning. States he uses 70/30 18 units twice a day. He had dinner last night. Physical Exam Vital signs: Vital Signs 08/03/18 12:00 08/03/18 13:00 08/03/18 14:00 Temperature Pulse Rate 84 78 80 Respiratory Rate 27 H 17 17 Blood Pressure 149/85 H 115/68 124/79 Pulse Oximetry 08/03/18 15:06 08/03/18 16:00 08/03/18 17:00 Temperature Pulse Rate 78 94 H 100 H Respiratory Rate 20 30 H 28 H Blood Pressure 150/80 H 153/83 H 156/93 H Pulse Oximetry 08/03/18 18:00 08/03/18 19:00 08/03/18 19:40 Temperature Pulse Rate 96 H 90 Respiratory Rate 29 H 17 Blood Pressure 107/60 100/55 L Pulse Oximetry 99 08/03/18 20:00 08/03/18 22:40 08/04/18 00:00 Temperature 99 F 99.3 F Pulse Rate 80 80 74 Respiratory Rate 19 18 16 Blood Pressure 142/80 H 121/81 116/78 Pulse Oximetry 97 08/04/18 01:00 08/04/18 02:00 08/04/18 03:00 Temperature Pulse Rate 80 78 90 Respiratory Rate 26 H 17 26 H Blood Pressure 119/80 127/80 126/75 Pulse Oximetry 08/04/18 04:00 08/04/18 05:00 08/04/18 06:00 Temperature 98.3 F Pulse Rate 78 72 74 Respiratory Rate 20 14 18 Blood Pressure 94/50 L 101/71 120/84 Pulse Oximetry Intake & Output 08/03/18 08/04/18 08/04/18 18:59 06:59 18:59 Intake Total 1975 3100 / 3100 36.5 / 36.5 Output Total 2099 / 2099 Balance 1975 1000 / 1000 36.5 / 36.5 Weight 58.4 kg Intake: IV 1016 / 1016 2400 / 2400 36.5 / 36.5 D5W/Normal Saline Inj 1,000 ML 1000 / 1000 @ 200 mls/hr IV.CONT .Q5H NGUYEN Rx#:[id number] NovoLIN R (IV Infusion) 100 16 / 16 UNIT In NS Inj 99 ML @ As Directed IV.CONT TITRATE PRN Rx #:[id number] KCl 20 mEq Premix Inj 20 meq In 300 / 300 100 ml @ 50 mls/hr IV.SIG Q2H PRN Rx#:[id number] NS Inj 1,000 ML @ Wide Open IV. 1999 SIG BOLUS NGUYEN Rx#:[id number] Oral 960 / 960 700 / 700 Output: Urine 2100 / 2100 Other: # Voids 4 Date of Last Bowel Movement 08/04/18 # Bowel Movements 3 Narrative: GENERAL: Well-developed, well-nourished in no distress SKIN: Warm and dry. HEAD: Atraumatic. Normocephalic. EYES: Pupils equal and round. No scleral icterus. No injection or drainage. ENT: No nasal bleeding or discharge. Mucous membranes pink and moist. NECK: Trachea midline. No JVD. CARDIOVASCULAR: Regular rate and rhythm. RESPIRATORY: No accessory muscle use. Clear to auscultation. Breath sounds equal bilaterally. GASTROINTESTINAL: Abdomen soft, non-tender, nondistended. MUSCULOSKELETAL: Extremities without clubbing, cyanosis, or edema. No obvious deformities. NEUROLOGICAL: Awake and alert. No obvious cranial nerve deficits. Motor grossly within normal limits. Five out of 5 muscle strength in the arms and legs. Normal speech. PSYCHIATRIC: Appropriate mood and affect; insight and judgment normal. Results - Labs CBC & Chem 7: 08/04/18 06:31 08/04/18 06:31 Laboratory Results - last 24 hr 08/03/18 08/03/18 08/03/18 04:40 11:33 15:57 CBC w Diff WBC RBC Hgb Hct MCV MCH MCHC RDW Plt Count MPV Neut % (Auto) Lymph % (Auto) Brown % (Auto) Eos % (Auto) Baso % (Auto) Neut # (Auto) Lymph # (Auto) Brown # (Auto) Eos # (Auto) Baso # (Auto) WBC Differential Differential Comment Sodium Potassium Chloride Carbon Dioxide Anion Gap BUN Creatinine Estimated GFR POC Glucose 171 H 293 H Random Glucose Calcium Phosphorus Magnesium Beta-Hydroxybutyric Acd Procalcitonin 0.14 H 08/03/18 08/03/18 08/03/18 17:14 19:43 19:58 CBC w Diff WBC RBC Hgb Hct MCV MCH MCHC RDW Plt Count MPV Neut % (Auto) Lymph % (Auto) Brown % (Auto) Eos % (Auto) Baso % (Auto) Neut # (Auto) Lymph # (Auto) Brown # (Auto) Eos # (Auto) Baso # (Auto) WBC Differential Differential Comment Sodium 139 141 Potassium 3.2 L 3.1 L Chloride 106 109 H Carbon Dioxide 14.1 L D 20.3 L Anion Gap 19 H 12 BUN 12 10 Creatinine 0.99 0.97 Estimated GFR 80 L 82 L POC Glucose 150 H Random Glucose 249 H 151 H Calcium 8.5 7.9 L Phosphorus 0.6 L D Magnesium 2.1 Beta-Hydroxybutyric Acd 2.71 H Procalcitonin 08/03/18 08/04/18 08/04/18 21:02 02:20 02:35 CBC w Diff WBC RBC Hgb Hct MCV MCH MCHC RDW Plt Count MPV Neut % (Auto) Lymph % (Auto) Brown % (Auto) Eos % (Auto) Baso % (Auto) Neut # (Auto) Lymph # (Auto) Brown # (Auto) Eos # (Auto) Baso # (Auto) WBC Differential Differential Comment Sodium Potassium Chloride Carbon Dioxide Anion Gap BUN Creatinine Estimated GFR POC Glucose 100 50 L 50 L Random Glucose Calcium Phosphorus Magnesium Beta-Hydroxybutyric Acd Procalcitonin 08/04/18 08/04/18 08/04/18 02:50 03:13 06:31 CBC w Diff Auto diff final WBC 6.1 RBC 3.94 L Hgb 13.0 Hct 38.8 L MCV 98.6 D MCH 33.0 MCHC 33.5 RDW 12.5 Plt Count 242 MPV 8.4 Neut % (Auto) 57.1 Lymph % (Auto) 33.1 Brown % (Auto) 7.5 Eos % (Auto) 1.3 Baso % (Auto) 1.0 Neut # (Auto) 3.4 Lymph # (Auto) 2.0 Brown # (Auto) 0.5 Eos # (Auto) 0.1 Baso # (Auto) 0.1 WBC Differential . Differential Comment . Sodium Potassium Chloride Carbon Dioxide Anion Gap BUN Creatinine Estimated GFR POC Glucose 61 L 163 H Random Glucose Calcium Phosphorus Magnesium Beta-Hydroxybutyric Acd Procalcitonin 08/04/18 08/04/18 08/04/18 06:31 06:31 08:13 CBC w Diff WBC RBC Hgb Hct MCV MCH MCHC RDW Plt Count MPV Neut % (Auto) Lymph % (Auto) Brown % (Auto) Eos % (Auto) Baso % (Auto) Neut # (Auto) Lymph # (Auto) Brown # (Auto) Eos # (Auto) Baso # (Auto) WBC Differential Differential Comment Sodium 134 L Potassium 3.4 L Chloride 103 Carbon Dioxide 22.1 Anion Gap 9 BUN 5 L Creatinine 0.74 Estimated GFR Greater than 89 POC Glucose 251 H Random Glucose 267 H D Calcium 7.8 L Phosphorus Cancelled 1.0 L Magnesium Cancelled 1.6 Beta-Hydroxybutyric Acd Cancelled Procalcitonin Microbiology 08/02/18 21:54 Blood - Peripheral Aerobic Blood Culture - Preliminary No growth in 2 days 08/02/18 21:54 Blood - Peripheral Anaerobic Blood Culture - Preliminary No growth in 2 days 08/02/18 21:30 Blood - Peripheral Aerobic Blood Culture - Preliminary No growth in 2 days 08/02/18 21:30 Blood - Peripheral Anaerobic Blood Culture - Preliminary No growth in 2 days - Imaging ITS Impressions Chest X-Ray 08/02/18 21:06 CONCLUSION: No acute cardiopulmonary disease. Chest CTA 08/03/18 00:00 CONCLUSION: 1. No CT evidence for pulmonary artery embolism to the mid segmental level. 2. 4.6 x 2.6 cm mass arising from the fundus of the stomach which is incompletely imaged and evaluated on this exam. This may reflect a gastric diverticulum with incomplete distention. Further evaluation may be performed with upper endoscopy or abdominal CT examination on an outpatient basis. 3. Nonobstructing 3 mm left superior pole renal calyceal calculus. 4. 1.2 cm densely calcified left thyroid nodule. - Procedures none Assessment and Plan - Plan Neuro/Psych: Bipolar disorder type I Anxiety disorder NOS History of polysubstance abuse including cocaine Currently not on any medications for his bipolar disorder Acetaminophen 650 mg every 4 hours as needed fever Morphine sulfate 2 mg IV every 2 hours as needed pain CV: CP NOS, atypical Ruled out for [place]. Echocardiogram and CTA both negative. Recommended outpatient stress test Resp: Nasal cannula to maintain saturations greater or equal to 92% Incentive spirometry while awake Chest x-ray revealed no acute cardiopulmonary findings GI: History of diabetic gastroparesis History of hepatitis C 4.6 x 2.6 cm mass arising from the fundus of the stomach. This may reflect a gastric diverticulum with incomplete distention. Recommended outpatient upper endoscopy or abdominal CT As needed metoclopramide and ondansetron for nausea ADA diet Pantoprazole for GI prophylaxis Docusate serum/senna 1 tablet twice daily for bowel regimen : History of nephrolithiasis No indication for Manzanares catheter Endo: IDDM DKA Labile sugars. Continue 70/30 18 units twice a day and fingerstick monitor with sliding scale coverage. Diabetic education. Hypoglycemia Renal: Creatinine currently within normal limits Monitor urine output accurate I's and O's Heme: Leukocytosis. Improved Monitor CBC daily. Follow trends. No indication for transfusion of blood products at this time ID: Monitor for signs and symptomatology infection Blood cultures 2 negative to date MSK: Out of bed/PT evaluate and treat FEN: Replace electrolytes as clinically indicated replace potassium and phosphorus today and repeat level at 5 PM and in the morning. Access -Utilize peripheral IV. Central line if indicated Prophylaxis -GI- Pantoprazole- -DVT SCD/heparin subcu Discharge Planning: Dc in am need additional time to monitor FS
[2018-08-04] MEDS: Dextrose 50% in Water 50 ML Vial IV.PUSH PRN ×2 (13:25→21:29)
[2018-08-04 17:05] LABS: Hemoglobin A1c 11.3 % (4.3-6.0)
[2018-08-04 17:34] LABS: Chloride 100 meq/L (98-107); Potassium 3.5 meq/L (3.5-5.1); Sodium 134 meq/L (136-145)
[2018-08-04 17:36] LABS: Calcium 8.1 mg/dL (8.5-10.1)
[2018-08-04 17:37] LABS: Anion Gap 9 meq/L (5-15); Blood Urea Nitrogen 5 mg/dL (7-18); Carbon Dioxide 24.8 meq/L (21.0-32.0); Glucose,Random 338 mg/dL (74-106); Magnesium 1.8 mg/dL (1.5-2.5)
[2018-08-04 17:40] LABS: Glomerular Filtration Rate Greater Than 89 mL/min (>89)
[2018-08-04 17:42] LABS: Phosphorus 2.6 mg/dL (2.5-4.9)
[2018-08-05] MEDS: Heparin - SQ 10,000 UNITS/ML Vial SQ SCH ×4 (06:25→21:35)
[2018-08-05] MEDS: Chlorhexidine Gluconate 2% 1 Pack (2 Cloths) TOPICAL SCH (06:51)
[2018-08-05] MEDS: Insulin Aspart Prot 70/30 1,000 UNITS/10 ML Vial SQ SCH (07:20)
[2018-08-05] MEDS: Insulin NovoLOG Aspart Correctional Sugar Inj SQ SCH (07:20)
[2018-08-05 07:37] LABS: Chloride 100 meq/L (98-107); Potassium 3.6 meq/L (3.5-5.1); Sodium 136 meq/L (136-145)
[2018-08-05 07:39] LABS: Calcium 8.2 mg/dL (8.5-10.1)
[2018-08-05 07:40] LABS: Anion Gap 11 meq/L (5-15); Blood Urea Nitrogen 7 mg/dL (7-18); Carbon Dioxide 25.4 meq/L (21.0-32.0); Glucose,Random 329 mg/dL (74-106); Magnesium 1.7 mg/dL (1.5-2.5)
[2018-08-05 07:43] LABS: Glomerular Filtration Rate Greater Than 89 mL/min (>89)
[2018-08-05 07:44] LABS: Phosphorus 2.5 mg/dL (2.5-4.9)
[2018-08-05] MEDS: Pantoprazole Sodium 20 MG DR Tablet PO SCH (10:26)
[2018-08-05] MEDS: Senna/Docusate Sodium 8.6/50 MG Tablet PO SCH ×2 (10:26→20:16)
--- NOTE | 2018-08-05 10:42 | P.PNIM ---
Subjective Interval history: Blood sugars are 359 and 329 this morning. Not yet controlled. Control of blood sugars needed prior to discharge given patient's type I diabetic coming out of DKA. Physical Exam Vital signs: Vital Signs 08/04/18 11:00 08/04/18 11:14 08/04/18 11:37 Temperature Pulse Rate 86 96 H Respiratory Rate 15 28 H Blood Pressure 131/70 Pulse Oximetry 96 08/04/18 13:12 08/04/18 14:00 08/04/18 16:00 Temperature 98.8 F 97.8 F Pulse Rate 90 82 82 Respiratory Rate 25 H 18 19 Blood Pressure 137/80 119/72 122/77 Pulse Oximetry 98 08/04/18 20:00 08/04/18 21:10 08/05/18 00:00 Temperature 98.0 F Pulse Rate 82 85 Respiratory Rate 20 18 Blood Pressure 115/75 136/80 Pulse Oximetry 95 99 98 08/05/18 01:35 08/05/18 04:00 08/05/18 08:00 Temperature 98.9 F 97.8 F Pulse Rate 85 84 82 Respiratory Rate 18 20 Blood Pressure 133/61 123/83 Pulse Oximetry 96 96 Intake & Output 08/04/18 08/05/18 08/05/18 18:59 06:59 18:59 Intake Total 936.5 / 936.5 200 / 200 240 / 240 Output Total 1140 / 1140 300 / 300 Balance -203.5 / -203.5 200 / 200 -60 / -60 Weight 58.4 kg Intake: IV 296.5 / 296.5 Potassium Phosphate Inj 30 MMOL 260 / 260 In NS Inj 250 ML @ 43.333 mls/ hr IV.SIG ONCE ONE Rx#: [id number] Oral 640 / 640 200 / 200 240 / 240 Output: Urine 1140 / 1140 300 / 300 Other: # Voids 3 Date of Last Bowel Movement 08/04/18 08/04/18 # Bowel Movements 2 Narrative: GENERAL: NAD, A&Ox3 HEAD: Normocephalic. NECK: Supple, trachea midline. No lymphadenopathy. EYES: No scleral icterus. No injection or drainage. CARDIOVASCULAR: Regular rate and rhythm without murmurs, gallops, or rubs. RESPIRATORY: Breath sounds equal bilaterally. No accessory muscle use. GASTROINTESTINAL: Abdomen soft, non-tender, nondistended. MUSCULOSKELETAL: No cyanosis, or edema. SKIN: Warm and dry. NEURO: No focal neurological deficits. Results - Labs CBC & Chem 7: 08/04/18 06:31 08/05/18 07:00 Laboratory Results - last 24 hr 08/04/18 08/04/18 08/04/18 02:25 06:31 12:32 Sodium Potassium Chloride Carbon Dioxide Anion Gap BUN Creatinine Estimated GFR POC Glucose 51 L Random Glucose Hemoglobin A1c 11.3 H Calcium Phosphorus Magnesium Nasal Screen MRSA (PCR) Not detected Stl C.difficile Tox PCR St C. diff Tox Epid 027 08/04/18 08/04/18 08/04/18 12:53 13:23 14:08 Sodium Potassium Chloride Carbon Dioxide Anion Gap BUN Creatinine Estimated GFR POC Glucose 61 L 56 L 309 H Random Glucose Hemoglobin A1c Calcium Phosphorus Magnesium Nasal Screen MRSA (PCR) Stl C.difficile Tox PCR St C. diff Tox Epid 027 08/04/18 08/04/18 08/04/18 14:41 17:10 17:42 Sodium 134 L Potassium 3.5 Chloride 100 Carbon Dioxide 24.8 Anion Gap 9 BUN 5 L Creatinine 0.86 Estimated GFR Greater than 89 POC Glucose 343 H Random Glucose 338 H Hemoglobin A1c Calcium 8.1 L Phosphorus 2.6 D Magnesium 1.8 Nasal Screen MRSA (PCR) Stl C.difficile Tox PCR Negative St C. diff Tox Epid 027 Negative 08/04/18 08/04/18 08/04/18 20:53 21:19 21:21 Sodium Potassium Chloride Carbon Dioxide Anion Gap BUN Creatinine Estimated GFR POC Glucose 76 64 L 64 L Random Glucose Hemoglobin A1c Calcium Phosphorus Magnesium Nasal Screen MRSA (PCR) Stl C.difficile Tox PCR St C. diff Tox Epid 027 08/04/18 08/05/18 08/05/18 21:48 02:41 07:00 Sodium 136 Potassium 3.6 Chloride 100 Carbon Dioxide 25.4 Anion Gap 11 BUN 7 Creatinine 0.81 Estimated GFR Greater than 89 POC Glucose 180 H 169 H Random Glucose 329 H Hemoglobin A1c Calcium 8.2 L Phosphorus 2.5 Magnesium 1.7 Nasal Screen MRSA (PCR) Stl C.difficile Tox PCR St C. diff Tox Epid 027 08/05/18 07:13 Sodium Potassium Chloride Carbon Dioxide Anion Gap BUN Creatinine Estimated GFR POC Glucose 359 H Random Glucose Hemoglobin A1c Calcium Phosphorus Magnesium Nasal Screen MRSA (PCR) Stl C.difficile Tox PCR St C. diff Tox Epid 027 Microbiology 08/02/18 21:54 Blood - Peripheral Aerobic Blood Culture - Preliminary No growth in 2 days 08/02/18 21:54 Blood - Peripheral Anaerobic Blood Culture - Preliminary No growth in 2 days 08/02/18 21:30 Blood - Peripheral Aerobic Blood Culture - Preliminary No growth in 2 days 08/02/18 21:30 Blood - Peripheral Anaerobic Blood Culture - Preliminary No growth in 2 days - Procedures none Assessment and Plan - Plan 48-year-old male admitted secondary to DKA Type 1 diabetes DKA DKA has resolved Blood sugars not yet stabilized Follow blood sugars Insulin sliding scale Transition to NPH for long-acting control Supplement mealtime with R insulin Diabetic diet Bipolar disorder type I Anxiety disorder NOS History of polysubstance abuse including cocaine Patient takes no chronic treatments for these conditions Follow clinically Atypical chest pain Negative cardiac workup History of diabetic gastroparesis History of hepatitis C Asymptomatic Recommended outpatient upper endoscopy or abdominal CT History of nephrolithiasis Chronic, asymptomatic DVT prophylaxis Continue heparin Discharge Planning: Discharge once blood sugar stabilized
[2018-08-05] MEDS ORDERED: Insulin Aspart Prot 70/30 1,000 UNITS/10 ML Vial SQ SCH (12:00)
[2018-08-06] MEDS: Chlorhexidine Gluconate 2% 1 Pack (2 Cloths) TOPICAL SCH (04:10)
[2018-08-06] MEDS: Heparin - SQ 10,000 UNITS/ML Vial SQ SCH ×2 (05:02→14:32)
[2018-08-06] MEDS: Senna/Docusate Sodium 8.6/50 MG Tablet PO SCH (09:23)
[2018-08-06] MEDS: Pantoprazole Sodium 20 MG DR Tablet PO SCH (09:24)
[2018-08-06] MEDS ORDERED: ALPRAZolam 0.25 MG Tablet PO ONE (10:44)
[2018-08-06 13:33] VITALS: BP 133/77; PULSE 93; RESP 17; TEMP 98.2; O2SAT 99
--- NOTE | 2018-08-06 14:27 | P.DS ---
Date of admission: 08/02/18 20:01 Primary care physician: No Primary Care Physician Brief History from admission: This is a 48-year-old male. Date of admission 08/03/2008. Past medical history includes bipolar disorder, IDDM, hepatitis C and nephrolithiasis. Patient presents to [facility] emergency department with chief complaint of nausea, vomiting, upper abdominal pain and chest "pressure".. He says he had some vomiting about 10 days ago, but it got worse on 08/01. He says that he has had the chest pain for a while, but has attributed to working outside in the heat. He states that other coworkers have been admitted to the hospital for "heat stroke". He says that he notices blood sugar 400s today. He reports taking 70/30 insulin 18 units twice daily as scheduled.. He has no primary care doctor. He also reports anxiety, and says that he has not been able to see his psychiatrist in a while due to insurance issues. Patient is noted to have an elevated blood sugar and elevated beta hydroxybutyrate. Troponin was negative. Chest x-ray revealed no acute findings. Blood cultures were done. He does not have a leukocytosis. Currently afebrile. He is received R insulin is currently in insulin drip at 2 units an hour. He will be transitioned back to his home scheduled insulin and sliding scale later on this morning. He is currently denying chest pain, shortness of breath. Afebrile. The chest pressure is nonspecific and evaluation. Patient is reproducible. Worse with deep inspiration. Does not radiate to his back, neck or down left arm. Will check CT pulmonary angiogram and another troponin. 2D echocardiogram ordered. DS: Medications - Discharge Medications Prescriptions: alprazolam [Xanax] 0.25 mg PO Q6H PRN #20 tab PRN Reason: Anxiety insulin NPH isoph U-100 human [Novolin N NPH U-100 Insulin] 1 units SUBCUT DIRECTED #1 vial insulin regular human [Novolin R Regular U-100 Insuln] 1 units SUBCUT TIDAC #1 vial DS: Summary Hospital Course: Mr. Rodriguez is a 48-year-old male. He has type 1 diabetes at baseline. Recurrent DKA has been a problem. He came in secondary to DKA. At baseline he has been using 7030 for treatment. This does not appear to be effective. During the stay he is transitioned to NPH and R insulin for coverage. These have been adjusted over the past 2 days and he has improved stability and control. He reports an active lifestyle with a lower demand of insulin when he is active, so aggressive control is not pursued. At this point he shows stability on present treatment which is 16 units every afternoon and 22 units every morning. He will resume insulin coverage at mealtimes with carbohydrate counting and insulin sliding scale coverage. He is encouraged to follow his blood sugars closely to find to optimized treatment. Medically stable and cleared for discharge home today. - Time Spent with Patient Total time spent providing and/or coordinating discharge services: Less than 30 minutes - Quality: VTE Deep Vein Thrombosis/Pulmonary Embolism Present on Admission: No Exam Vital signs: Vital Signs 08/05/18 16:00 08/05/18 20:00 08/05/18 20:25 Temperature 97.8 F 98.2 F Pulse Rate 78 81 Respiratory Rate 20 18 Blood Pressure 121/77 121/76 Pulse Oximetry 98 100 98 08/06/18 00:00 08/06/18 08:00 08/06/18 12:00 Temperature 98.3 F 98.6 F 98.2 F Pulse Rate 88 88 93 H Respiratory Rate 18 16 17 Blood Pressure 128/81 138/76 133/77 Pulse Oximetry 98 100 99 Intake & Output 08/05/18 08/06/18 08/06/18 18:59 06:59 18:59 Intake Total 480 / 480 300 / 300 Output Total 500 / 500 Balance -20 / -20 300 / 300 Weight 58.4 kg Intake: IV 100 / 100 Oral 480 / 480 200 / 200 Output: Urine 500 / 500 Other: # Voids 4 2 Results Procedures completed during hospitalization: none Labs on day of discharge: Labs from last 24 hours 08/06/18 08/06/18 08/06/18 13:57 11:26 07:47 POC Glucose 287 H 369 H 339 H 08/06/18 08/05/18 08/05/18 02:44 20:16 16:19 POC Glucose 147 H 148 H 274 H Preliminary micro results at discharge 08/02/18 21:54 Aerobic Blood Culture - Preliminary Blood - Peripheral No growth in 4 days Anaerobic Blood Culture - Preliminary No growth in 4 days 08/02/18 21:30 Aerobic Blood Culture - Preliminary Blood - Peripheral No growth in 4 days Anaerobic Blood Culture - Preliminary No growth in 4 days - Impressions ITS Impressions Chest X-Ray 08/02/18 21:06 CONCLUSION: No acute cardiopulmonary disease. Chest CTA 08/03/18 00:00 CONCLUSION: 1. No CT evidence for pulmonary artery embolism to the mid segmental level. 2. 4.6 x 2.6 cm mass arising from the fundus of the stomach which is incompletely imaged and evaluated on this exam. This may reflect a gastric diverticulum with incomplete distention. Further evaluation may be performed with upper endoscopy or abdominal CT examination on an outpatient basis. 3. Nonobstructing 3 mm left superior pole renal calyceal calculus. 4. 1.2 cm densely calcified left thyroid nodule. Discharge Plan - Discharge Disposition Patient Disposition: 01 Discharge Home - Discharge Condition Condition: Stable - Discharge Order Discharge Orders: Discharge Order (Routine); Ordered 08/06/18 Ordered By: Carlos Hilton - Discharge Details Anticipated Discharge Date: 08/06/18 - Physicians Team Primary Care Provider: Primary Care Kianna,Tammi Attending Provider: Carlos Hilton
[2018-08-06] MEDS ORDERED: ALPRAZolam 0.25 MG Tablet PO PRN (16:00)
== END 2018-08-06 14:56 | disposition home or self-care (01) ==
LOC: PHED 18:15 → PHEDA 20:01 → PHICU 20:45 → PH3 08-04 23:26
PROVIDERS: ADMIT Hospitalist; ATTEND Hospitalist